=== PATIENT | male | born 1990 | race Caucasian/White ===

== ENCOUNTER → 2020-01-04 | Outpatient (CLI) | payer OTHER | LOC: LAB FS 08:24 | PROVIDERS: ATTEND Urology | DX: E29.1 Testicular hypofunction (principal) | CPT/HCPCS: 36415; 82040; 84270; 84402; 84403 ==

== ENCOUNTER 2021-02-08 23:55 | Emergency (ER) | payer OTHER ==
[~2021-02-08] VITALS: Ht 190.5 cm; Wt 78.9 kg
--- OUTSIDE RECORDS SUMMARY | 2021-02-09 00:01 | XMS REPORT | Encounter Summary ---
Author Author Department [facility] LUCINA williamson Organization Department [facility] Address Unknown Phone Unavailable Care Team Providers Care Registered Nursing Professor Name Role Phone RADHA SHYANNE PCP Unavailable Insurance Providers: All historical and current No Data Provided for This Section Selected Encounter This section includes the information on record at [place] for the Encounter. Date/Time Encounter Type Encounter Description Reason Provider Source Feb 04, 2021 01:18 PM Outpatient Encounter ADMIN PAT ACTIVTIES (MASNO NCT) IHE Encounter Template Text not used by ID Assessments - Encounter Diagnoses No Data Provided for This Section Plan of Treatment: Future Appointments (+ 6 months) and Future Tests (+/- 45 day s) The Plan of Treatment section includes future care activities for the patient fr om all ID treatment facilities. This section includes future appointments and fu ture orders which are active, pending or scheduled. Future Appointments This section includes appointments that were scheduled t o occur 6 months from the date of the Encounter, up to a maximum of 20 appointme nts. The data comes from all ID treatment facilities. Appointment Date/Time Appointment Type Appointment Facili ty Name Feb 26, 2021 09:00 AM AMBULATORY - MEDICINE INIC Mar 19, 2021 08:00 AM AMBULATORY - MEDICINE IN Active, Pending, and Scheduled Orders This section includes a listing of several types of activ e, pending, and scheduled orders, including clinic medications orders, diagnosti c test orders, procedure orders and consult orders; where the start date of th e order is 45 days before the date of the Encounter or 45 days after the date o f the Encounter. The data comes from all ID treatment facilities. Test Date/Time Test Type Test Details Facility Name Mar 05, 2021 12:00 AM Laboratory - Chemistry Order LIPID PROFILE(HDL,TRIG,CHOL,LDL) GREEN TOP TUBE PLASMA [facility] Mar 05, 2021 12:00 AM Laboratory - Chemistry Order COMPREHEN SIVE METABOLIC PANEL GREEN TOP TUBE PLASMA [facility] Mar 05, 2021 12:00 AM Laboratory - Chemistry Order CBC & DIF F 5 ML LAVENDER TOP BLOOD [facility] Mar 05, 2021 12:00 AM Laboratory - Chemistry Order TSH SST GEL S AKILA [facility] Mar 05, 2021 12:00 AM Laboratory - Chemistry Order PROSTATIC SPECIFIC ANTIGEN(TOTAL) SST GEL SERUM [facility] Mar 05, 2021 12:00 AM Laboratory - Chemistry Order URINALYSI S URIN,RAND URINE [facility] Surgical Procedures: All associated to the encounter No Data Provided for This Section Lab Results: +/- 30 days of the encounter No Data Provided for This Section Vital Signs: All taken on the encounter date No Data Provided for This Section Immunizations: All administered on the encounter date No Data Provided for This Section Social History: Smoking Status (Most current) and Tobacco Use (All prior to enco unter date) This section includes the most current, and the historical, smoking and tobacco- related health factors from the ID facility where the Encounter took place. Current Smoking Status This section includes the most current smoking, or tobacco -related health factor, from the ID facility where the Encounter took place. Date/Time Current Smoking Status Comment Facility Feb 15, 2018 08:56 AM VA-TOBACCO USER SOME DAYS [facility] [place] [facility] Tobacco Use History This section includes a history of the smoking, or tobacco -related health factors, that were collected on or before the date of the Encoun ter. The data comes from the ID facility where the Encounter took place. 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 Date/Time Encounter Note(s) Provider Source Feb 04, 2021 01:19 PM PHARMACY NOTE: LOCAL TITLE: -PHARMACY REFILL STANDARD TITLE: PHARMACY NOTE DATE OF NOTE: FEB 04, 2021@13:19 ENTRY DATE: FEB 04, 2021@13:19:14 AUTHOR: BEN VILLAFUERTE COSIGNER: URGENCY: STATUS: COMPLETED Telephone renewal request was received for: Active and Recently Outpatient Medications (including Supplies): OXYBUTYNIN CHLORIDE 10MG SA TAB Qty: 90 Issu:01-30-20 for 90 days Sig: TAKE ONE TABLET BY Refills: 0 Last:10-24-20 MOUTH ONCE A DAY FOR BLADDER. SWALLOW Expr:01-30-21 WHOLE, DO NOT CRUSH OR CHEW. Future Appointments: FEB 26, 2021@09:00 Clinic: [facility] N/C MAR 19, 2021@08:00 Clinic: [facility] 1 PCP Future PRICILLA Reminders: Renewal request will be forwarded to SHYANNE GARCIA for consideration. If approved, please renew prescription. If you do not wish to renew this prescription please document denial as an addendum to this note. If ordered, this medication should be processed for . /zulema/ BEN VILLAFUERTE LPN Signed: 02/04/2021 13:20 Receipt Acknowledged By: 02/04/2021 13:47 /zulema/ BEN DORSEY [facility] [place] [facility]
--- OUTSIDE RECORDS SUMMARY | 2021-02-09 00:01 | XMS REPORT | Encounter Summary ---
Author Author Department [facility] LUCINA williamson Organization Department [facility] Address Unknown Phone Unavailable Care Team Providers Care Dip Filler Name Role Phone SHYANNE GARCIA PCP Unavailable Insurance Providers: All historical and current No Data Provided for This Section Selected Encounter This section includes the information on record at [place] for the Encounter. Date/Time Encounter Type Encounter Description Reason Provider Source Apr 29, 2020 11:58 AM Outpatient Encounter ADMIN PAT ACTIVTIES (MASNO NCT) IHE Encounter Template Text not used by [place] Assessments - Encounter Diagnoses No Data Provided for This Section Plan of Treatment: Future Appointments (+ 6 months) and Future Tests (+/- 45 day s) The Plan of Treatment section includes future care activities for the patient fr om all [place] treatment facilities. This section includes future appointments and fu ture orders which are active, pending or scheduled. Future Appointments This section includes appointments that were scheduled t o occur 6 months from the date of the Encounter, up to a maximum of 20 appointme nts. The data comes from all [place] treatment facilities. Appointment Date/Time Appointment Type Appointment Facili ty Name Jun 20, 2020 01:00 PM AMBULATORY - NONE [facility] July 16, 2020 01:00 PM AMBULATORY - NONE [facility] July 17, 2020 01:00 PM AM[facility]ATORY - [facility] [place] [facility] July 18, 2020 01:30 PM [facility] July 18, 2020 01:31 PM [facility] Aug 08, 2020 02:00 PM AMBULATORY - NONE [facility] Sep 09, 2020 03:00 PM AMBULATORY - NONE [facility] Surgical Procedures: All associated to the encounter [...] Use (All prior to enco unter date) No Data Provided for This Section Advance Directives: All historical and current No Data Provided for This Section Radiology Reports: +/- 30 days of the encounter No Data Provided for This Section Pathology Reports: +/- 30 days of the encounter No Data Provided for This Section Encounter Notes: All associated encounter notes This section contains the clinical notes associated to the Encounter. Date/Time Encounter Note(s) Provider Source Apr 29, 2020 11:58 AM NONVA CONSULT: LOCAL TITLE: COMMUNITY CARE CONSULT RESULT NOTE EK STANDARD TITLE: NONVA CONSULT DATE OF NOTE: APR 29, 2020@11:58 ENTRY DATE: APR 29, 2020@11:58:36 AUTHOR: ROCIO KOHLI EXP COSIGNER: URGENCY: STATUS: COMPLETED Topic/Procedure: LABS AND PROGRESS NOTES Institution/Place: [facility] M.D.,F[facility]C.S[facility] Date of Service: 01/03/2020 To refer to the attached scanned document, on the Tools Bar select the Tools, then select Imaging (log in) and then, if needed, select View and display list. The following Non VA Care consult has been completed. See scanned document for report. NON VA Care Consult Results /es/ ROCIO KOHLI Signed: 04/29/2020 12:00 ROCIO KOHLI [facility] JAYME Guzman
--- OUTSIDE RECORDS SUMMARY | 2021-02-09 00:01 | XMS REPORT | Encounter Summary ---
Author Author Department [facility] LUCINA williamson Organization Department [facility] Address Unknown Phone Unavailable Care Team Providers Care Public Records Officer Name Role Phone SHYANNE GARCIA PCP Unavailable Insurance Providers: All historical and current No Data Provided for This Section Selected Encounter This section includes the information on record at [place] for the Encounter. Date/Time Encounter Type Encounter Description Reason Provider Source July 16, 2020 01:45 PM Outpatient Encounter ADMIN PAT ACTIVTIES (MASNO NCT) IHE Encounter Template Text not used by [place] Assessments - Encounter Diagnoses No Data Provided for This Section Plan of Treatment: Future Appointments (+ 6 months) and Future Tests (+/- 45 day s) The Plan of Treatment section includes future care activities for the patient fr om all [place] treatment facilities. This section includes future appointments and fu ture orders which are active, pending or scheduled. Future Appointments This section includes appointments that were scheduled t o occur 6 months from the date of the Encounter, up to a maximum of 20 appointme nts. The data comes from all [place] treatment facilities. Appointment Date/Time Appointment Type Appointment Facili ty Name July 17, 2020 01:00 PM AMBULATORY - PSYCHIATRY [facility] [place] [facility] July 18, 2020 01:30 PM AMBULATORY - [facility]RY [facility] July 18, 2020 01:31 PM [facility] Aug 08, 2020 02:00 PM AMBULATORY - NONE [facility] Sep 09, 2020 03:00 PM AMBULATORY - NONE [facility] Surgical Procedures: All associated to the [...] and tobacco- related health factors from the [place] facility where the Encounter took place. Current Smoking Status This section includes the most current smoking, or tobacco -related health factor, from the [place] facility where the Encounter took place. Date/Time Current Smoking Status Comment Facility Feb 15, 2018 08:56 AM VA-TOBACCO USER SOME DAYS [facility] [place] [facility] Tobacco Use History This section includes a history of the smoking, or tobacco -related health factors, that were collected on or before the date of the Encoun ter. The data comes from the [place] facility where the Encounter took place. 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 Date/Time Encounter Note(s) Provider Source July 16, 2020 01:45 PM NO SHOW NOTE: LOCAL TITLE: EK-NO SHOW STANDARD TITLE: NO SHOW NOTE DATE OF NOTE: JULY 16, 2020@13:45 ENTRY DATE: JULY 16, 2020@13:47:41 AUTHOR: AMADEO ESQUEDA EXP COSIGNER: URGENCY: STATUS: COMPLETED failed to show. Attempt to get him by phone unsucessful. I will ask my MSA to no show him and send a fail to show letter. /zulema/ AMADEO ESQUEDA NEW PATIENT ESC[facility] Signed: 07/16/2020 13:48 Receipt Acknowledged By: * AWAITING SIGNATURE * REFF,JERRY ESQUEDA,AMADEO Parks [facility]
--- OUTSIDE RECORDS SUMMARY | 2021-02-09 00:01 | XMS REPORT | Encounter Summary ---
Author Author Department [facility] LUCINA williamson Organization Department [facility] Address Unknown Phone Unavailable Care Team Providers Care Director Of Managed Care Name Role Phone SHYANNE GARCIA PCP Unavailable Insurance Providers: All historical and current No Data Provided for This Section Selected Encounter This section includes the information on record at [place] for the Encounter. Date/Time Encounter Type Encounter Description Reason Provider Source Mar 06, 2020 11:34 AM Outpatient Encounter ADMIN PAT ACTIVTIES (MASNO NCT) IHE Encounter Template Text not used by [place] Assessments - Encounter Diagnoses No Data Provided for This Section Plan of Treatment: Future Appointments (+ 6 months) and Future Tests (+/- 45 day s) The Plan of Treatment section includes future care activities for the patient fr om all [place] treatment facilities. This section includes future appointments and fu ture orders which are active, pending or scheduled. Future Appointments This section includes appointments that were scheduled t o occur 6 months from the date of the Encounter, up to a maximum of 20 appointme nts. The data comes from all [place] treatment facilities. Appointment Date/Time Appointment Type Appointment Facili ty Name Mar 27, 2020 07:30 AM AMBULATORY - MEDICINE [facility] Jun 20, 2020 01:00 PM [facility] NONE [facility] July 16, 2020 01:00 PM AMBULATORY - NONE [facility] July 17, 2020 01:00 PM AMBULATORY - [facility]IATRY [facility] [place] [facility] July 18, 2020 01:30 PM AMBULATORY - PS[facility]IATRY [facility] July 18, 2020 01:31 PM AMBUL[facility] Aug 08, 2020 02:00 PM AMBULATORY - NONE [facility] Surgical Procedures: All associated to the encounter No Data Provided for This Section Lab Results: +/- 30 days of the encounter This section includes the Chemistry and Hematology Lab R esults on record with [place] for the patient. Radiology Reports and Pathology Report s are provided separately, in subsequent sections. Lab Results This section contains the Chemistry/Hematology Results zenobia t were resulted 30 days before or 30 days after the date of the Encounter. Date/Time Source Result Type Result - Unit Interpretation Reference Range Comment Mar 06, 2020 11:35 AM [facility] LIPID PROFILE(HDL,TRI G,CHOL,LDL) Specimen Type: PLASMA No comment entered. Ordering Provider: SHYANNE GARCIA Report Released Date/Time: May 22, 2019 07:32 AM Reporting Lab: [facility] [address] [facility] [id number] Performing Lab: [facility] [place] [facility] [address] [facility] [address] CHOLESTEROL 138 mg/dL 0-200 TRIGS 66 mg/dL 0-150 HDL-CHOLESTEROL 45 mg/dL > 40 LDL (CALC) 80 mg/dL 0-99 Mar 06, 2020 11:35 AM [facility] CBC & DIFF Speci men Type: BLOOD No comment entered. Ordering Provider: SHYANNE GARCIA Report Released Date/Time: May 22, 2019 07:32 AM Reporting Lab: [facility] [place] [facility] [address] [facility] [address] Performing Lab: [facility] [address] [facility] [address] WBC 7.78 K/cmm 3.60-11.20 RBC 5.73 M/ul H 4.1-5.7 HGB 17.3 g/dl H 13.1-16.8 HCT 49.6 % H 38.2-48.4 MCV 86.6 fl 80.1-98.5 MCH 30.2 pg 27.0-34.0 MCHC 34.9 g/dl 33.0-36.0 PLATELET COUNT 291 K/cmm 150-400 MPV 10.3 fl 7.5-11.2 RDW 12.8 % 11.8-15.1 LYMPHOCYTES, AUTO% 29.6 % NEUTROPHILS, AUTO % 60.1 % MONOCYTES, AUTO% 8.5 % MONOCYTES, ABSOLUTE 0.66 K/cmm 0.19-0.80 NEUTROPHILS, ABSOLUTE 4.68 K/cmm 2.10-8. 00 EOSINOPHILS, ABSOLUTE 0.07 K/cmm 0.00-0. 60 BASOPHILS, ABSOLUTE 0.05 K/cmm 0.00-0.20 EOSINOPHILS, AUTO% 0.9 % BASOPHILS, AUTO% 0.6 % LYMPHOCYTES, ABSOLUTE 2.30 K/cmm 0.77-4. 50 IMMATURE GRANS, ABSOLUTE 0.02 K/cmm 0.00 -0.05 IMMATURE GRANS, AUTO % 0.3 % Mar 06, 2020 11:35 AM [facility] COMPREHENSIVE METABOL IC PANEL Specimen Type: PLASMA No comment entered. Ordering Provider: SHYANNE GARCIA Report Released Date/Time: May 22, 2019 07:32 AM Reporting Lab: [facility] [address] [facility] [address] Performing Lab: [facility] [address] [address] *CREATININE 0.89 mg/dL 0.70-1.30 UREA NITROGEN mg/dL 13 mg/dL 9-25 GLUCOSE 89 mg/dL 72-99 SODIUM 138 mEq/L 136-145 POTASSIUM 4.0 mEq/L 3.5-5.0 CALCIUM (mg/dL) 9.1 mg/dL 8.4-10.4 PROTEIN,TOTAL 7.6 g/dL 6.0-8.6 ALBUMIN 4.7 g/dL 3.4-5.0 TOTAL BILIRUBIN 0.5 mg/dL 0.2-1.2 ASPARTATE TRANSAMINASE 14 U/L 5-34 ALANINE AMINOTRANSFERASE 11 U/L 8-40 CHLORIDE 104 mEq/L 98-107 CO2 24 mEq/L 22-31 ALKALINE PHOSPHATASE 66 U/L 40-150 EGFR 99.1 Mar 06, 2020 11:35 AM [facility] TSH Speci men Type: SERUM No comment entered. Ordering Provider: SHYANNE GARCIA Report Released Date/Time: May 22, 2019 07:32 AM Reporting Lab: [facility] [address] [facility] [address] Performing Lab: [facility] [address] [facility] [address] TSH 1.499 uIU/mL 0.47-5.00 Mar 06, 2020 11:35 AM [facility] PROSTATIC SPECIFIC AN TIGEN(TOTAL) Specimen Type: SERUM No comment entered. Ordering Provider: SHYANNE GARCIA Report Released Date/Time: May 22, 2019 07:32 AM Reporting Lab: [facility] [address] [facility] [address] Performing Lab: [facility] [address] [facility] [address] PROSTATIC SPECIFIC ANTIGEN(TOTAL) 0.26 ng/mL 0.00-4.00 Mar 06, 2020 11:35 AM [facility] URINALYSIS Speci men Type: URINE No comment entered. Ordering Provider: SHYANNE GARCIA Report Released Date/Time: May 22, 2019 07:32 AM Reporting Lab: [facility] [address] [facility] [address] Performing Lab: [facility] [address] [facility] [address] URINE COLOR Yellow SPECIFIC GRAVITY 1.018 1.005-1.030 UROBILINOGEN Negative mg/dL 0.1-1.0 URINE BILIRUBIN Negative Negative URINE KETONES Negative mg/dl Negative URINE GLUCOSE Negative mg/dL Negative URINE PROTEIN Negative mg/dl Negative-Tr maximiliano URINE PH 6.0 5-8 APPEARANCE,URINE Clear Clear URINE BLOOD Negative Negative URINE NITRITE Negative Negative LEUKOCYTE ESTERASE Negative Negative Vital Signs: All taken on the encounter date No Data Provided for This Section Immunizations: All administered on the encounter date No Data Provided for This Section Social History: Smoking Status (Most current) and Tobacco Use (All prior to enco unter date) This section includes the most current, and the historical, smoking and tobacco- related health factors from the [place] facility where the Encounter took place. Current Smoking Status This section includes the most current smoking, or tobacco -related health factor, from the [place] facility where the Encounter took place. Date/Time Current Smoking Status Comment Facility Feb 15, 2018 08:56 AM VA-TOBACCO USER SOME DAYS [facility] Tobacco Use History This section includes a history of the smoking, or tobacco -related health factors, that were collected on or before the date of the Encoun ter. The data comes from the [place] facility where the Encounter took place. 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 Date/Time Encounter Note(s) Provider Source Mar 06, 2020 11:34 AM ADMINISTRATIVE NOTE: LOCAL TITLE: -ADMINISTRATIVE COVID-19 STANDARD TITLE: ADMINISTRATIVE NOTE DATE OF NOTE: MAR 06, 2020@11:34 ENTRY DATE: MAR 06, 2020@11:34:31 AUTHOR: ABUNDIO TAY EXP COSIGNER: URGENCY: STATUS: COMPLETED Coronavirus Disease 2019 (COVID-19) Screen The patient reports no COVID-19 diagnosis. The patient reports not waiting for the results of a COVID-19 lab test. The patient reports no fever. The patient reports no new or worsening cough or shortness of breath. The patient reports no cold or flu-like symptoms. The patient reports no new onset of diarrhea, nausea or vomiting. The patient reports no new onset of headache, loss of taste or loss of smell. The patient reports no exposure to someone with COVID-19 within the past 2 weeks. Result: Screen is negative. /zulema/ AUBNDIO Sommers [employer] Signed: 03/06/2020 11:34 ABUNDIO TAY [facility] [place] [facility]
--- OUTSIDE RECORDS SUMMARY | 2021-02-09 00:01 | XMS REPORT | Encounter Summary ---
Author Author Department [facility] LUCINA williamson Organization Department [facility] Address Unknown Phone Unavailable Care Team Providers Care Grease Monkey Name Role Phone SHYANNE GARCIA PCP Unavailable Insurance Providers: All historical and current No Data Provided for This Section Selected Encounter This section includes the information on record at [place] for the Encounter. Date/Time Encounter Type Encounter Description Reason Provider Source June 27, 2020 07:26 AM Outpatient Encounter ADMIN PAT ACTIVTIES (MASNO NCT) IHE Encounter Template Text not used by [place] Assessments - Encounter Diagnoses No Data Provided for This Section Plan of Treatment: Future Appointments (+ 6 months) and Future Tests (+/- 45 day s) The Plan of Treatment section includes future care activities for the patient fr om all [place] treatment facilities. This section includes future appointments and fu ture orders which are active, pending or scheduled. Future Appointments This section includes appointments that were scheduled t o occur 6 months from the date of the Encounter, up to a maximum of 20 appointme nts. The data comes from all [place] treatment facilities. Appointment Date/Time Appointment Type Appointment Facili ty Name July 16, 2020 01:00 PM AMBULATORY - NONE [facility] July 17, 2020 01:00 PM AMBULATORY - PSYCHIATRY [facility] July 18, 2020 01:30 PM AMBULATORY - [facility]RY [facility] July 18, 2020 01:31 PM AM[facility] Aug 08, 2020 02:00 PM AMBULATORY - NONE [facility] Sep 09, 2020 03:00 PM AMBULATORY - NONE [facility], VISN 15 Surgical Procedures: All associated to [...] and tobacco- related health factors from the [place] facility where the Encounter took place. Current Smoking Status This section includes the most current smoking, or tobacco -related health factor, from the [place] facility where the Encounter took place. Date/Time Current Smoking Status Comment Facility Feb 15, 2018 08:56 AM VA-TOBACCO USER SOME DAYS [facility] Tobacco Use History This section includes a history of the smoking, or tobacco -related health factors, that were collected on or before the date of the Encoun ter. The data comes from the [place] facility where the Encounter took place. 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 Feb 15, 2018 08:56 AM VA-TOBACCO USE MED NO [facility] Feb 15, 2018 08:56 AM VA-TOBACCO USER SOME DAYS [facility] Advance Directives: All historical [...] the Encounter. Date/Time Encounter Note(s) Provider Source June 27, 2020 07:26 AM PACT NOTE: LOCAL TITLE: EK-PACT WALK-IN STANDARD TITLE: PACT NOTE DATE OF NOTE: JUNE 27, 2020@07:26 ENTRY DATE: JUNE 27, 2020@07:27:11 AUTHOR: RAYMOND WESTON COSIGNER: URGENCY: STATUS: COMPLETED EK-PACT WALK-IN Has ADDENDA WHAT BRINGS YOU IN TO THE CLINIC TODAY? Arrived at clinic at 0700. Complaining of sore on back of neck. HOW LONG HAS THIS BEEN PROBLEM BEEN GOING ON? Reports it has been there for several years but in the last week it really started to hurt- it looked pus filled so popped it and reports it had pus/blood in it. WHAT HAVE YOU TRIED THAT MAKES THIS PROBLEM BETTER? I opened up the spot by squeezing it. I applied triple antibiotic and covered it with a band aid. WHAT HAVE YOU TRIED THAT MAKES THIS PROBLEM WORSE? N/A- I am not sure what made it worse. It just started to get bigger and more painful. 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 No signs of distress. Afebrile on check in. DISPOSITION: Verbal discussion with provider. Orders obtained and entered for: AMOXICILLIN 875/CLAV K 125MG TAB TAKE ONE TABLET BY MOUTH TWO TIMES A DAY FOR INFECTION.TAKE UNTIL GONE UNLESS OTHERWISE DIRECTED Quantity: 20 Refills: 0 MUPIROCIN OINT,TOP 2% APPLY LIGHTLY TO AFFECTED AREA THREE TIMES A DAY NEEDED FOR INFECTION. FOR EXTERNAL USE ONLY Quantity: 22 Refills: 0 * Educated on the importance of taking Augmentin with food due to risk of nausea and vomitting. Educated to watch for signs and symptoms of worsening infection: incluidng fever, swelling, warmth, redness. Educated to complete entire course of antiobitic therapy even when sore starts to look better. Power v/u He will call with questions or concerns. /es/ RAYMOND WESTON RN,BSN Signed: 06/27/2020 07:57 Receipt Acknowledged By: 06/27/2020 08:22 /es/ SHYANNE BARBAP 06/27/2020 ADDENDUM STATUS: COMPLETED Note mid posterior neck w/ 1+cm open lesion, w/o active drainage. Mild induration surrounding and no surrounding erythema. Vet describes cyst structure present x years that recently enlarged and then opened and drained. plan: 1. Instrx on care of lesion: * avoid collars that rub the site. Vet has to wear collared shirt 5 days/week for his job. He is instructed to change out of this after work, wear t-shirt * cleanse w/ soapy water and rinse and dry well. Leave to air dry when possible. Can keep covered during work hours w/ bandaid. Avoid hydrogen peroxide and rubbing alcohol for cleaning as they are caustic to skin * avoid picking at site * augmentin w/ food bid x 10 days * apply mupirocin oint tid * notify cboc if sxs persist despite measures /es/ SHYANNE ROBISON Signed: 06/27/2020 08:28 Receipt Acknowledged By: * AWAITING SIGNATURE * RAYMOND WESTON [facility]
--- OUTSIDE RECORDS SUMMARY | 2021-02-09 00:01 | XMS REPORT | Encounter Summary ---
Author Author Department [facility] LUCINA williamson Organization Department [facility] Address Unknown Phone Unavailable Care Team Providers Care Telephone Messenger Name Role Phone MELVIN GARCIAA PCP Unavailable Insurance Providers: All historical and current No Data Provided for This Section Selected Encounter This section includes the information on record at [place] for the Encounter. Date/Time Encounter Type Encounter Description Reason Provider Source Jul 29, 2020 09:00 AM Outpatient Encounter ADMIN PAT ACTIVTIES (MASNO NCT) IHE Encounter Template Text not used by [place] Assessments - Encounter Diagnoses No Data Provided for This Section Plan of Treatment: Future Appointments (+ 6 months) and Future Tests (+/- 45 day s) The Plan of Treatment section includes future care activities for the patient fr om all [place] treatment facilities. This section includes future appointments and fu ture orders which are active, pending or scheduled. Future Appointments This section includes appointments that were scheduled t o occur 6 months from the date of the Encounter, up to a maximum of 20 appointme nts. The data comes from all [place] treatment facilities. Appointment Date/Time Appointment Type Appointment Facili ty Name Aug 08, 2020 02:00 PM AMBULATORY - NONE [facility] Sep 09, 2020 03:00 PM AMBULATORY - NONE [facility] [place] [facility] 15 Surgical Procedures: All associated to [...] and tobacco- related health factors from the [place] facility where the Encounter took place. Current Smoking Status This section includes the most current smoking, or tobacco -related health factor, from the [place] facility where the Encounter took place. Date/Time Current Smoking Status Comment Facility Feb 15, 2018 08:56 AM VA-TOBACCO USER SOME DAYS [facility] [place] [facility] Tobacco Use History This section includes a history of the smoking, or tobacco -related health factors, that were collected on or before the date of the Encoun ter. The data comes from the [place] facility where the Encounter took place. Date/Time Smoking Status/Tobacco Use Comment [facility] it Feb 15, 2018 08:56 AM VA-TOBACCO USE 1 TO < 5 YEARS [facility] [place] [facility] Feb 15, 2018 08:56 AM VA-TOBACCO USE ADVICE 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 Feb 15, 2018 08:56 AM VA-TOBACCO USE MED NO [facility] Feb 15, 2018 08:56 AM VA-TOBACCO USER SOME DAYS [facility] Advance Directives: All [...] the Encounter. Date/Time Encounter Note(s) Provider Source Jul 29, 2020 09:00 AM SOCIAL WORK NOTE: LOCAL TITLE: EK-SW NOTE STANDARD TITLE: SOCIAL WORK NOTE DATE OF NOTE: JUL 29, 2020@09:00 ENTRY DATE: JUL 29, 2020@09:06:25 AUTHOR: AMADEO ESQUEDA EXP COSIGNER: URGENCY: STATUS: COMPLETED contacted to discuss scheduling. He accepted an appointment for 1400 on August 08, 2020. I will ask my MSA to schedule him for that date and time. /zulema/ AMADEO ESQUEDA PRESS OPERATOR HEAVY DUTY Signed: 07/29/2020 09:07 Receipt Acknowledged By: * AWAITING SIGNATURE * LEON DA SILVA * AWAITING SIGNATURE * FRANTZF,AMADEO MAURO [facility] [place] [facility]
[2021-02-09 00:02] VITALS: BP 149/98
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
--- OUTSIDE RECORDS SUMMARY | 2021-02-09 00:02 | XMS REPORT | Encounter Summary ---
Author Author Department [facility] Address Unknown Phone Unavailable Care Team Providers Care Agriculture Manager Name Role Phone RADHA SHYANNE PCP Unavailable Insurance Providers: All historical and current No Data Provided for This Section Selected Encounter This section includes the information on record at [place] for the Encounter. Date/Time Encounter Type Encounter Description Reason Provider Source Oct 17, 2020 10:42 AM Outpatient Encounter OPTOMETRY IHE Encounter Template Text not used by [place] Assessments - Encounter Diagnoses No Data Provided for This Section Plan of Treatment: Future Appointments (+ 6 months) and Future Tests (+/- 45 day s) The Plan of Treatment section includes future care activities for the patient fr om all [place] treatment facilities. This section includes future appointments and fu ture orders which are active, pending or scheduled. Future Appointments This section includes appointments that were scheduled t o occur 6 months from the date of the Encounter, up to a maximum of 20 appointme nts. The data comes from all [place] treatment facilities. Appointment Date/Time Appointment Type Appointment Facili ty Name Feb 26, 2021 09:00 AM AM[facility]ORY - MEDICINE [facility] Mar 19, 2021 08:00 AM AMBULATORY - MEDICINE [facility] Surgical Procedures: All associated to the encounter [...] the Encounter. Date/Time Encounter Note(s) Provider Source Oct 17, 2020 10:42 AM ADMINISTRATIVE NOTE: LOCAL TITLE: EK-EYE ADMINISTRATIVE STANDARD TITLE: ADMINISTRATIVE NOTE DATE OF NOTE: OCT 17, 2020@10:42 ENTRY DATE: OCT 17, 2020@10:42:41 AUTHOR: SIMON KNUTSON EXP COSIGNER: URGENCY: STATUS: COMPLETED Reviewed consult report from: Dr. Scott Stafford Sr. OD Date of examination: September 17, 2020 [place] Sent Out for Routine Eye Exam: Other: The 's Complaint was Refraction if Routine Exam Acuity if Other Right: -[id number] 20/20 Left: -0.7520/ Impression: 1. refractive error 2. pinguecula bilateral 3. 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 advised annual eye exams F/U needed: no further action requested See Scanned Document for details /zulema/ SIMON KNUTSON STAFF DRAWING IN HAND Signed: 10/17/2020 10:52 SIMON KNUTSON [facility]
--- OUTSIDE RECORDS SUMMARY | 2021-02-09 00:02 | XMS REPORT ---
Author Author Department [facility] LUCINA williamson Organization Department [facility] Address Unknown Phone Unavailable Care Team Providers Care Crystal Evaluator Name Role Phone RADHA SHYANNE PCP Unavailable Insurance Providers: All historical and current No Data Provided for This Section Selected Encounter This section includes the information on record at [place] for the Encounter. Date/Time Encounter Type Encounter Description Reason Provider Source Sep 09, 2020 08:00 AM Outpatient Encounter ADMIN PAT ACTIVTIES (MASNO [...] 26, 2021 09:00 AM AMBULATORY - MEDICINE [facility] Surgical Procedures: All associated to the encounter [...] and tobacco- related health factors from the [place] facility where the Encounter took place. Current Smoking Status This section includes the most current smoking, or tobacco -related health factor, from the [place] facility where the Encounter took place. Date/Time Current Smoking Status Comment Facility Feb 15, 2018 08:56 AM VA-TOBACCO USER SOME DAYS [facility] [facility] Tobacco Use History This section includes a history of the smoking, or tobacco -related health factors, that were collected on or before the date of the Encoun ter. The data comes from the [place] facility where the Encounter took place. Date/Time Smoking Status/Tobacco Use Comment [facility] it Feb 15, 2018 08:56 AM VA-TOBACCO USE 1 TO < 5 YEARS [facility] [place] [facility] Feb 15, 2018 08:56 AM VA-TOBACCO USE ADVICE [facility] Feb 15, 2018 08:56 AM VA-TOBACCO USE WAFER SUBSTRATE TESTER NO [facility] [place] [facility] Feb 15, 2018 08:56 AM VA-TOBACCO USE MED NO [facility] Feb 15, 2018 08:56 AM VA-TOBACCO USER SOME DAYS [facility] [place] Advance Directives: All historical and current No Data Provided for This Section Radiology Reports: +/- 30 days of the encounter No Data Provided for This Section Pathology Reports: +/- 30 days of the encounter No Data Provided for This Section Encounter Notes: All associated encounter notes This section contains the clinical notes associated to the Encounter. Date/Time Encounter Note(s) Provider Source Sep 09, 2020 08:00 AM NONVA CONSULT: LOCAL TITLE: COMMUNITY CARE CONSULT RESULT NOTE EK STANDARD TITLE: NONVA CONSULT DATE OF NOTE: SEP 09, 2020@08:00 ENTRY DATE: OCT 17, 2020@09:19:21 AUTHOR: VENESSA DE LA GARZA EXP COSIGNER: URGENCY: STATUS: COMPLETED Topic/Procedure: EYE EXAM [facility] Date of Service: 09/09/2020 To refer to the attached scanned document, on the Tools Bar select the Tools, then select Imaging (log in) and then, if needed, select View and display list. /zulema/ VENESSA DE LA GARZA CURRICULUM ADVISORY TEACHER Signed: 10/17/2020 09:19 VENESSA DE LA GARZA [facility]
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
--- OUTSIDE RECORDS SUMMARY | 2021-02-09 00:03 | XMS REPORT ---
Author Author Department [facility] LUCINA williamson Organization Department [facility] Address Unknown Phone Unavailable Care Team Providers Care Electrophysiology Nurse Practitioner Name Role Phone SHYANNE GARCIA PCP Unavailable Insurance Providers: All historical and current No Data Provided for This Section Selected Encounter This section includes the information on record at [place] for the Encounter. Date/Time Encounter Type Encounter Description Reason Provider Source July 16, 2020 04:02 PM Outpatient Encounter ADMIN PAT ACTIVTIES (MASNO NCT) IHE Encounter Template Text not used by [place] Assessments - Encounter Diagnoses No Data Provided for This Section Plan of Treatment: Future Appointments (+ 6 months) and Future Tests (+/- 45 day s) The Plan of Treatment section includes future care activities for the patient fr om all [place] treatment facilities. This section includes future appointments and fu ture orders which are active, pending or scheduled. Future Appointments This section includes appointments that were scheduled t o occur 6 months from the date of the Encounter, up to a maximum of 20 appointme nts. The data comes from all [place] treatment facilities. Appointment Date/Time Appointment Type Appointment Facili ty Name July 17, 2020 01:00 PM [facility] July 18, 2020 01:30 PM AMBULATORY - [facility]CHIATRY [facility] July 18, 2020 01:31 PM AMBULATORY - [facility]IATRY [facility] Aug 08, 2020 02:00 PM AMBULATORY - NONE [facility] Sep 09, 2020 03:00 PM AMBULATORY - NONE [facility] T, VISN 15 Surgical Procedures: All associated [...] Encounter Note(s) Provider Source July 16, 2020 04:02 PM LETTERS: LOCAL TITLE: EK-TO UNABLE TO CONTACT PATIENT LETTER STANDARD TITLE: LETTERS DATE OF NOTE: JULY 16, 2020@16:02 ENTRY DATE: JULY 16, 2020@16:02:12 AUTHOR: JERRY MARIN EXP COSIGNER: URGENCY: STATUS: COMPLETED Department of 's [facility] [address] [place] [address] JULY 16, 2020 LUCINA BEGUM [address], [place] [address] Dear LUCINA BEGUM Please call us for an appointment. We have been trying to contact you to reschedule an appointment in [place], but we were unsuccessful in reaching you by telephone. It is important to your health that you do not have delays in your care. Please contact us to schedule your appointment within 14 days from the date of this letter. Please call toll free or ext:[phone]. This letter will 07/30/2020. Sincerely, [facility] JERRY MARIN [facility]
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
--- OUTSIDE RECORDS SUMMARY | 2021-02-09 00:03 | XMS REPORT | Encounter Summary ---
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 Date/Time Encounter Type Encounter Description Reason Provider Source July 18, 2020 01:30 PM TELEHEALTH FACILITY [facility] - IND ICD-10-CM F31.9 Bipolar disorder, unspecified with Provider Comments: Bipolar II disorder ([facility] [id number]) TERRANCE BARRIOS Kaylen Encounter Template Text not used by [place] Assessments - Encounter Diagnoses This section includes the primary and secondary diag noses documented for the Encounter. Date/Time Primary/Secondary Diagnosis Diagnosis Name Provider Source July 20, 2020 02:24 PM PRIMARY Bipolar disorder, unspecified [facility] Plan of Treatment: Future Appointments (+ 6 months) and Future Tests (+/- 45 day s) The Plan of Treatment section includes future care activities for the patient fr om all [place] treatment facilities. This section includes future appointments and fu ture orders which are active, pending or scheduled. Future Appointments This section includes appointments that were scheduled t o occur 6 months from the date of the Encounter, up to a maximum of 20 appointme nts. The data comes from all [place] treatment facilities. Appointment Date/Time Appointment Type Appointment Facili ty Name Aug 08, 2020 02:00 PM AMBULATORY - NONE [facility] Sep 09, 2020 03:00 PM AMBULATORY - NONE [facility] T, VISN 15 Surgical Procedures: All associated to the encounter This section includes all Surgical Procedures and Surgical Procedure Notes assoc iated to the Encounter. Surgical Procedures This section includes all Surgical Procedures associated to the Encounter. Surgical Procedure Date/Time Procedure Procedure Type Procedure Qualifiers Provider Source July 18, 2020 01:30 PM Telehealth Facility Fee TELEHEALTH FACILITY Dany COLLINS DENIS,TERRANCE Patino [facility] Surgical Notes There are no notes associated [...] and tobacco- related health factors from the [facility] facility where the Encounter took place. Current Smoking Status This section includes the most current smoking, or tobacco -related health factor, from the [facility] facility where the Encounter took place. Date/Time Current Smoking Status Comment Facility Mar 27, 2020 07:30 AM VA-TOBACCO USER EVERY DAY [facility] Tobacco Use History This section includes a history of the smoking, or tobacco -related health factors, that were collected on or before the date of the Encoun ter. The data comes from the [facility] facility where the Encounter took place. Date/Time Smoking Status/Tobacco Use Comment Selam rodas Mar 27, 2020 07:30 AM VA-TOBACCO USE 5 TO 15 YEARS [facility] Mar 27, 2020 07:30 AM VA-TOBACCO USE ADVICE [facility] Mar 27, 2020 07:30 AM VA-TOBACCO USE VEHICLE PAINTER NO [facility] Mar 27, 2020 07:30 AM VA-TOBACCO USE MED NO [facility] Mar 27, 2020 07:30 AM VA-TOBACCO USER EVERY DAY [facility] Feb 06, 2019 05:16 PM VA-TOBACCO DOESNT USE WI 30 MIN WAKEUP [facility] Feb 06, 2019 05:16 PM VA-TOBACCO USE > 15 LESS THAN 30 YEARS [facility] Feb 06, 2019 05:16 PM VA-TOBACCO USE ADVICE [facility] Feb 06, 2019 05:16 PM VA-TOBACCO USE VEHICLE PAINTER NO [facility] Feb 06, 2019 05:16 PM VA-TOBACCO USE MED NO [facility] Feb 06, 2019 05:16 PM VA-TOBACCO USER SOME DAYS [facility] Oct 29, 2010 07:46 AM CURRENT NON-TOBACCO USER [facility] Advance Directives: All historical and current No Data Provided for This Section Radiology Reports: +/- 30 days of the encounter No Data Provided for This Section Pathology Reports: +/- 30 days of the encounter No Data Provided for This Section Encounter Notes: All associated encounter notes No Data Provided for This Section
--- OUTSIDE RECORDS SUMMARY | 2021-02-09 00:03 | XMS REPORT | Encounter Summary ---
[facility] Address Unknown Phone Unavailable Care Team Providers Care Electric Car Operator Name Role Phone SHALINI GARCIA PCP Unavailable Insurance Providers: All historical and current No Data Provided for This Section Selected Encounter This section includes the information on record at [place] for the Encounter. Date/Time Encounter Type Encounter Description Reason Provider Source Jun 18, 2020 04:27 PM PT EDUCATION NOC INDIVID PRIMARY CARE/MEDI CINE ICD-10-CM F41.9 Anxiety disorder, unspecified with Provider Comments: Anxiety Disorder, unspecified DULCE JAY Encounter Template Text not used by [place] Assessments - Encounter Diagnoses This section includes the primary and secondary diag noses documented for the Encounter. Date/Time Primary/Secondary Diagnosis Diagnosis Name Provider Source Jun 18, 2020 05:20 PM PRIMARY Anxiety disorder, unspecified WO DULCE VIDALES V [facility] Plan of Treatment: Future Appointments (+ 6 months) and Future Tests (+/- 45 day s) The Plan of Treatment section includes future care activities for the patient fr om all [place] treatment facilities. This section includes future appointments and fu ture orders which are active, pending or scheduled. Future Appointments This section includes appointments that were scheduled t o occur 6 months from the date of the Encounter, up to a maximum of 20 appointme nts. The data comes from all [place] treatment facilities. Appointment Date/Time Appointment Type Appointment Facili ty Name Jun 20, 2020 01:00 PM [facility]ORY [facility] NONE [facility] July 16, 2020 01:00 PM AMBULATORY - NONE [facility] July 17, 2020 01:00 PM [facility] July 18, 2020 01:30 PM AMBULATORY - PSYCHIATRY [facility] July 18, 2020 01:31 PM AMBUL[facility]ORY - [facility] Aug 08, 2020 02:00 PM AMBULATORY - NONE [facility] Sep 09, 2020 03:00 PM AMBULATORY - NONE [facility] [place], VISN 15 Surgical Procedures: All associated to the encounter This section includes all Surgical Procedures and Surgical Procedure Notes assoc iated to the Encounter. Surgical Procedures This section includes all Surgical Procedures associated to the Encounter. Surgical Procedure Date/Time Procedure Procedure Type Procedure Qualifiers Provider Source Jun 18, 2020 04:27 PM Patient Education, not other hernandez classified, non-Physician Provider, Individual, per Session PT EDUCATION DULCE MEMBRENO [facility] Surgical Notes There are no notes associated [...] and tobacco- related health factors from the [place] facility where the Encounter took place. Current Smoking Status This section includes the most current smoking, or tobacco -related health factor, from the [place] facility where the Encounter took place. Date/Time Current Smoking Status Comment Facility Mar 27, 2020 07:30 AM VA-TOBACCO USER EVERY DAY [facility] Tobacco Use History This section includes a history of the smoking, or tobacco -related health factors, that were collected on or before the date of the Encoun ter. The data comes from the [place] facility where the Encounter took place. Date/Time Smoking Status/Tobacco Use Comment [facility] it Mar 27, 2020 07:30 AM VA-TOBACCO USE 5 TO 15 YEARS [facility] Mar 27, 2020 07:30 AM VA-TOBACCO USE ADVICE [facility] Mar 27, 2020 07:30 AM VA-TOBACCO USE MOLDER SHOULDER PAD NO [facility] Mar 27, 2020 07:30 AM VA-TOBACCO USE MED NO [facility] Mar 27, 2020 07:30 AM VA-TOBACCO USER EVERY DAY [facility] Feb 06, 2019 05:16 PM VA-TOBACCO DOESNT USE WI 30 MIN WAKEUP [facility] Feb 06, 2019 05:16 PM VA-TOBACCO USE > 15 LESS THAN 30 YEARS [facility] Feb 06, 2019 05:16 PM VA-TOBACCO USE ADVICE [facility] Feb 06, 2019 05:16 PM VA-TOBACCO USE MOLDER SHOULDER PAD NO [facility] Feb 06, 2019 05:16 PM VA-TOBACCO USE MED NO [facility] Feb 06, 2019 05:16 PM VA-TOBACCO USER SOME DAYS [facility] Oct 29, 2010 07:46 AM CURRENT NON-TOBACCO USER [facility] Advance Directives: All historical and current No [...] Encounter Note(s) Provider Source Jun 18, 2020 04:29 PM CARE MANAGEMENT NOTE: LOCAL TITLE: EK-PACT CARE MANAGEMENT STANDARD TITLE: CARE MANAGEMENT NOTE DATE OF NOTE: JUN 18, 2020@16:29 ENTRY DATE: JUN 18, 2020@16:29:10 AUTHOR: DULCE JAY COSIGNER: URGENCY: STATUS: COMPLETED EK-PACT CARE MANAGEMENT Has ADDENDA Patient came into clinic asking to speak to RN about some issues he is having. Patient brought to executive officer. Patient is very nervous about speaking to anyone for fear it will get back to his work place. 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 He is "minor marriage" and has 6 children. 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 Reassured Vet that everything that is in his medical chart is confidential, explained HIPPA law. Let him know that only medical staff involved in his care could share info about him. Other than that, [place] will not release any information to anyone that he has not designated in writing as being able to release it to, or by court order. Patient states his has been telling him for sometime to come see someone. She "thinks Im crazy". He states "I can go off the handle alot". He denies using any physical abuse, and denies any idealations of self harm or suicide. He states he just can't sit still, and has been told he has OCD, he has to pace, even when he is on a conference call at work. He states that everyone tells him he cant stop moving. He is fidgiting in the chair as he speaks. He states he has been using marijuana to help calm his nerves which helps, but then he gets a "don't give a shit attitude". He states he knows it is illegal, but it is the only thing that calms him down. He states he knows "how to get around a random urine test" should he be asked to do one at work. He denies any other illicit drug use, he only takes prescribed meds Sumtriptan succinate for Migraines, usually once a week, he states stress brings on his migrains and Oxybutynin for his overactive bladder, he denies any OTC meds. He admits to drinking energy drinks "maybe every other day, and a 32 oz pop daily. Discussed decreasing caffiene intake and stopping any energy drinks. Patient states "that will be hard" Discussed not being on social media, not watching current news as that may trigger anger. He reports has not been on social media in 8 years because it causes problems with his marriage and he does not watch the news. Patient states he probably has some PTSD, but he faked the exit test in the so that it would not be on his record, so he can legally have guns. He denies owning or having any guns in his possession. His thinks he is "bipolar". Let patient know that we have Psychiatric services with Dr. Perez that is telemed meetings on fridays and we also have a social insurance specialist here that has spealty in mental issues. Patient OK with this proposal lead writer reporting the above to his PCP. Spoke with RICKI Burgess, she agrees patient needs appointments with Mental Health. Was able to get patient in to see ROB Higginbotham. Per Shalini she will put in a consult for Dr. Perez. Patient given the Crisis Hot Line number on a card and advised he can use it 24-7 should he need someone to talk to, explained he did not have to be suicidal to call the number. Patient verbalixed his understanding. Was able to get patient in to speak to Amadeo Berry this afternoon for additional help during this episode. /es/ DULCE JAY RN Signed: 06/18/2020 17:20 Receipt Acknowledged By: 06/18/2020 19:50 /zulema/ SHALINI ROBISON 06/18/2020 17:29 /zulema/ AMADEO SANNOO CONFIGURATION ENGINEER 06/19/2020 ADDENDUM STATUS: COMPLETED Upon presentation to [facility] yesterday afternoon w/ walk-in complaints, vet also stated he needed an eye exam /zulema/ SHALINI ROBISON Signed: 06/19/2020 13:01 DULCE JAY [facility]
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
--- OUTSIDE RECORDS SUMMARY | 2021-02-09 00:04 | XMS REPORT | Encounter Summary ---
Author Author [facility] LUCINA williamson Organization [facility] Address Unknown Phone Unavailable Care Team Providers Care Solution Manager Name Role Phone SHYANNE GARCIA PCP Unavailable Insurance Providers: All historical and current No Data Provided for This Section Selected Encounter This section includes the information on record at [place] for the Encounter. Date/Time Encounter Type Encounter Description Reason Provider Source Mar 27, 2020 07:30 AM OFFICE O/P EST MOD 30-39 MIN PRIMARY CARE/ MEDICINE ICD-10-CM G43.909 Migraine, unsp, not intractable, without status migrainosus with Provider Comments: Headache disorder ([facility] [id number]) SHYANNE GARCIA Kaylen Encounter Template Text not used by [place] Assessments - Encounter Diagnoses This section includes the primary and secondary diag noses documented for the Encounter. Date/Time Primary/Secondary Diagnosis Diagnosis Name Provider Source Mar 27, 2020 08:53 AM PRIMARY Migraine, unsp, no t intractable, without status migrainosus SHYANNE GARCIA [facility] Mar 27, 2020 08:53 AM SECONDARY Overactive bladder SHYANNE GARCIA [facility] Mar 27, 2020 08:53 AM SECONDARY Pain in left ankle and cleo nts of left foot SHYANNE GARCIA [facility] Mar 27, 2020 08:53 AM SECONDARY [facility] Plan of Treatment: Future Appointments (+ 6 months) and Future Tests (+/- 45 day s) The Plan of Treatment section includes future care activities for the patient fr om all [place] treatment facilities. This section includes future appointments and fu ture orders which are active, pending or scheduled. Future Appointments This section includes appointments that were scheduled t o occur 6 months from the date of the Encounter, up to a maximum of 20 appointme nts. The data comes from all [place] treatment facilities. Appointment Date/Time Appointment Type Appointment Facili ty Name Jun 20, 2020 01:00 PM AMBULATORY - NONE [facility] July 16, 2020 01:00 PM AMBULATORY - NONE [facility] July 17, 2020 01:00 PM AMBULATORY - PSYCHIATRY [facility] July 18, 2020 01:30 PM AMBULATORY - PSYCHIATRY [facility] July 18, 2020 01:31 PM AMBULATORY - PS[facility]CHIATRY [facility] Aug 08, 2020 02:00 PM AMBULATORY - NONE [facility] Sep 09, 2020 03:00 PM AMBULATORY - NONE [facility] 15 Surgical Procedures: All associated to the encounter No Data Provided for This Section Lab Results: +/- 30 days of the encounter This section includes the Chemistry and Hematology Lab R esults on record with [place] for the patient. Radiology Reports and Pathology Report s are provided separately, in subsequent sections. Lab Results This section contains the Chemistry/Hematology Results zenobia t were resulted 30 days before or 30 days after the date of the Encounter. Date/Time Source Result Type Result - Unit Interpretation Reference Range Comment Mar 06, 2020 11:35 AM [facility] LIPID PROFILE(HDL,TRI G,CHOL,LDL) Specimen Type: PLASMA No comment entered. Ordering Provider: SHYANNE GARCIA Report Released Date/Time: May 22, 2019 07:32 AM Reporting Lab: [facility] [address] [facility] [id number] Performing Lab: [facility] [address] [facility] [address] CHOLESTEROL 138 mg/dL 0-200 TRIGS 66 mg/dL 0-150 HDL-CHOLESTEROL 45 mg/dL > 40 LDL (CALC) 80 mg/dL 0-99 Mar 06, 2020 11:35 AM [facility] CBC & DIFF Speci men Type: BLOOD No comment entered. Ordering Provider: SHYANNE GARCIA Report Released Date/Time: May 22, 2019 07:32 AM Reporting Lab: [facility] [address] [facility] [address] Performing Lab: [facility] [address] [facility] [address] WBC 7.78 K/cmm 3.60-11.20 RBC 5.73 M/ul [...] 0.3 % Mar 06, 2020 11:35 AM [facility] COMPREHENSIVE METABOL IC PANEL Specimen Type: PLASMA No comment entered. Ordering Provider: SHYANNE GARCIA Report Released Date/Time: May 22, 2019 07:32 AM Reporting Lab: [facility] [address] [facility] [address] Performing Lab: [facility] [address] [facility] [address] *CREATININE 0.89 mg/dL 0.70-1.30 UREA NITROGEN mg/dL [...] EGFR 99.1 Mar 06, 2020 11:35 AM [facility] TSH Speci men Type: SERUM No comment entered. Ordering Provider: SHYANNE GARCIA Report Released Date/Time: May 22, 2019 07:32 AM Reporting Lab: [facility] [address] [facility] [address] Performing Lab: [facility] [address] [facility] [address] TSH 1.499 uIU/mL 0.47-5.00 Mar 06, 2020 11:35 AM [facility] PROSTATIC SPECIFIC AN TIGEN(TOTAL) Specimen Type: SERUM No comment entered. Ordering Provider: SHYANNE GARCIA Report Released Date/Time: May 22, 2019 07:32 AM Reporting Lab: [facility] [address] [facility] [address] Performing Lab: [facility] [address] [facility] [address] PROSTATIC SPECIFIC ANTIGEN(TOTAL) 0.26 ng/mL 0.00-4.00 Mar 06, 2020 11:35 AM [facility] URINALYSIS Speci men Type: URINE No comment entered. Ordering Provider: SHYANNE GARCIA Report Released Date/Time: May 22, 2019 07:32 AM Reporting Lab: [facility] [address] [facility] [address] Performing Lab: [facility] [address] [facility] [address] URINE COLOR Yellow SPECIFIC GRAVITY 1.018 1.005-1.030 UROBILINOGEN Negative mg/dL 0.1-1.0 URINE BILIRUBIN Negative Negative URINE KETONES Negative mg/dl Negative URINE GLUCOSE Negative mg/dL Negative URINE PROTEIN Negative mg/dl Negative-Tr maximiliano URINE PH 6.0 5-8 APPEARANCE,URINE Clear Clear URINE BLOOD Negative Negative URINE NITRITE Negative Negative LEUKOCYTE ESTERASE Negative Negative Vital Signs: All taken on the encounter date This section contains inpatient and outpatient Vital Signs collected on the date of the Encounter. Date/Time Temperature Pulse Blood Pressure Respiratory Rate SP02 Pa in Height Weight Body Mass Index Source Mar 27, 2020 07:52 AM 97.5 F 88 /min 118/78 mm[Hg] 16 /min 99 % 75 in 176.1 lb 22 [facility] Mar 27, 2020 07:40 AM 0 [facility] Immunizations: All administered on the encounter date No Data Provided for This Section Social History: Smoking Status (Most current) and Tobacco Use (All prior to enco unter date) This section includes the most current, and the historical, smoking and tobacco- related health factors from the [place] facility where the Encounter took place. Current Smoking Status This section includes the most current smoking, or tobacco -related health factor, from the [place] facility where the Encounter took place. Date/Time Current Smoking Status Comment Facility Mar 27, 2020 07:30 AM VA-TOBACCO USER EVERY DAY [facility] Tobacco Use History This section includes a history of the smoking, or tobacco -related health factors, that were collected on or before the date of the Encoun ter. The data comes from the [place] facility where the Encounter took place. 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 [facility] Mar 27, 2020 07:30 AM VA-TOBACCO USE MED NO [facility] Mar 27, 2020 07:30 AM VA-TOBACCO USER EVERY DAY [facility] Feb 06, 2019 05:16 PM VA-TOBACCO DOESNT USE WI 30 MIN WAKEUP [facility] Feb 06, 2019 05:16 PM VA-TOBACCO USE > 15 LESS THAN 30 YEARS [facility] Feb 06, 2019 05:16 PM VA-TOBACCO USE ADVICE [facility] Feb 06, 2019 05:16 PM 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 [facility] Feb 06, 2019 05:16 PM VA-TOBACCO USE MED NO [facility] Feb 06, 2019 05:16 PM VA-TOBACCO USER SOME DAYS [facility] Oct 29, 2010 07:46 AM CURRENT NON-TOBACCO USER [facility] Advance Directives: All historical and current No Data Provided for This Section Radiology Reports: +/- 30 days of the encounter No Data Provided for This Section Pathology Reports: +/- 30 days of the encounter No Data Provided for This Section Encounter Notes: All associated encounter notes This section contains the clinical notes associated to the Encounter. Date/Time Encounter Note(s) Provider Source Mar 27, 2020 07:37 AM NURSING OUTPATIENT NOTE: [facility] ST[facility] TITLE: NURSING OUTPATIENT NOTE DATE OF NOTE: MAR 27, 2020@07:37 ENTRY DATE: MAR 27, 2020@07:37:55 AUTHOR: DULCE JAY COSIGNER: URGENCY: STATUS: [facility] Has ADDENDA Coronavirus Disease 2019 (COVID-19) Screen The patient [...] past 2 weeks. Result: Screen is negative. COVID-19 Immunization Status There is no record of COVID-19 vaccination. PRIMARY REASON FOR VISIT TODAY: yearly check PATIENT'S GOAL/MISSION FOR THEIR HEALTH: good and healthy ALLERGIES/ADR: Patient has answered NKA VITALS: VITALS - T. 97.5 P 88, R 16, BP 118/78, Wt 176.1, Ht 75 REPRODUCTIVE HISTORY: Concerns regardng sexual/reproductive health: None MEDICATION RECONCILIATION: Copy of current medication list on file provided for patient. Instructed to compare with all medications they are currently taking, and to review /discuss discrepancies with provider. LEARNING ASSESSMENT: Patient's preferred language for discussing health care is: Hungarian Today's learning assessment regarding patient's readiness to learn. Patient reads well. Barriers to Learning: Vision barrier addressed by: Other: night time driving only wears glasses. Preferred Method of Learning: Listening Education provided as per documentation below: SCREENING FOR PAIN STATUS: Patient reported pain level as 0 (03/20/2019 10:39) on 0 to 10 scale. * Today's Pain Level: 0 Pain Scale used: Numerical Pain Scale Patient states current level of pain is: Acceptable Location of pain that most interferes with your life: Not applicable Verbal Education Provided: To patient, Pain prevention by exercise and reducing stress Understanding of education: Patient: Good Patient Support Member: Not applicable Barriers to Learning: None SCREENING FOR FALL RISK: Roland Fall Assessment History of Falling, immediate or within 3 months: 0 - No Has the patient fallen within the last 12 months? No Secondary Diagnosis: 15 - Yes, more than one diagnosis Ambulatory Aid: 0 - None, bed rest, nurse assist Intravenous Therapy: 0 - No Patient's Gait: 0 - Normal, bed rest, immobile Mental Status: 0 - Oriented to own ability Total Score: 15 Score 0-24 - No intervention indicated SCREENING FOR ABUSE/NEGLECT: Do you have any concerns about feeling safe, neglected or abused? Patient reports feeling safe; denies concern of abuse or neglect. SECURE MESSAGING: Patient was invited/encouraged to utilize Secure Messaging for medication refill requests and other non-urgent communication. DISPOSITION: to provider 0840 Alcohol Use Screen (AUDIT-C): Alcohol Screen: SCREEN FOR ALCOHOL (AUDIT-C) An alcohol screening test (AUDIT-C) was negative (score=1). 1. How often did you have a drink containing alcohol in the past year? Monthly or less 2. How many drinks containing alcohol did you have on a typical day when you were drinking in the past year? One or two drinks 3. How often did you have six or more drinks on one occasion in the past year? Never N:Homeless/Food Insecurity Scr: In the past 2 months, have you been living in stable housing that you own, rent, or stay in as part of a household? Yes - Living in stable housing. Are you worried or concerned that in the next 2 months you may NOT have stable housing that you own, rent, or stay in as part of a household? No - Not worried about housing near future The Telephone reports the following: Within the past 12 months I worried whether my food would run out before I got money to buy more. Never true Within the past 12 months the food I bought just didn't last and I didn't have money to get more. Never true N:Offer MOVE! Program: Discussed with patient the MOVE!/Weight Management Program. The following health risks of overweight/obesity were discussed: heart disease, diabetes, sleep apnea, hypertension, arthritis and certain cancers. Assessed patients readiness to begin weight management activities including the MOVE! Program. Patient offered enrollment into the MOVE!/Weight Management Program. Declined Weight Management (MOVE) Program. N:Pressure Ulcer Risk Screening: Mobility/Friction/Shear - Patient requires assistance for changing position when in bed or chair? No Activity - Patient is confined to bed or requires a wheelchair as their only or primary method of ambulation? 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 No Moisture - Patient has difficulty controlling bowel or bladder functions? No Nutrition - Patient has had significant weight loss in the past 6 months (10% or more of usual body weight)? No All responses are negative. Screening for risk is negative. /zulema/ DULCE JAY RN Signed: 03/27/2020 07:55 03/27/2020 ADDENDUM STATUS: COMPLETED Influenza Immunization: The patient declines to receive the recommended dose of seasonal influenza vaccine. /zulema/ DULCE AJY RN Signed: 03/27/2020 08:53 DULCE JAY V [facility] Mar 27, 2020 07:26 AM ADMINISTRATIVE NOTE: LOCAL TITLE: EK-ADMINISTRATIVE STANDARD TITLE: ADMINISTRATIVE NOTE DATE OF NOTE: MAR 27, 2020@07:26 ENTRY DATE: MAR 27, 2020@07:26:47 AUTHOR: SOHAN VILLA EXP COSIGNER: URGENCY: STATUS: COMPLETED PATIENT PRESENTS TO CLINIC FOR CHECK FOR PRIMARY CARE APPOINTMENT TODAY. IS TEMP CHECKED AND CLEARED TO PROCEED. IS QUESTIONED ABOUT COVID POSITIVE CONTACT WITHIN THE LAST 10 DAYS: "none" IS QUESTIONED ABOUT WHETHER HE/SHE HAS TESTED POSITIVE FOR COVID IN THE LAST 10 DAYS: "none, son has been swabbed, but was negative" 'S DEMOGRAPHICS AND INSURANCE ARE CHECKED BY THIS WORKER AND HIS/HER EMAIL ADDRESS IS VERIFIED. IS REQUESTED TO PROCEED TO THE [facility] AND SELF CHECK IN. /zulema/ SOHAN VILLA Signed: 03/27/2020 07:27 SOHAN VILLA [facility] Mar 27, 2020 07:10 AM PRIMARY CARE NURSE PRACTITFRANKIE MORRELL NOTE: LOCAL TITLE: EK-NURSE PRACTITIONER PC STANDARD TITLE: PRIMARY CARE NURSE PRACTITIONER NOTE DATE OF NOTE: MAR 27, 2020@07:10 ENTRY DATE: MAR 27, 2020@07:10:56 AUTHOR: SHYANNE GARCIA EXP COSIGNER: URGENCY: STATUS: COMPLETED EK-NURSE PRACTITIONER PC Has ADDENDA Reason for visit: annual appt, lab results CC: Doing well w/ oxybutynin HPI: Followup chronic medical conditions. * Doing well w/ oxybutynin. Has f/u w/ Dr Cruz in April. Other providers: [facility] prn, [facility] Dr Cruz PSH: left ankle, fracture, ORIF 03/03 07/01 appliances removed from left ankle myringotomy tubes ROS: Denies chest pain, shortness of breath, orthopnea, unusual fatigue. Occ headaches, prn Tylenol. Occ migraine, prn Imitrex. Denies reflux, dysphagia. Occ hemorrhoids, prn topical product. Denies change in bowels, constipation, diarrhea. Nocturia: denies.Denies frequency w/ RX thru Dr Cruz. Some swelling of left ankle since fractured in February 2010, notes discomfort w/ weather changes. Mood: "Good". 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 Hobbies: plays w/ kids, remodeling home Exercise: walks daily, up to 4 miles. Runs Diet: regular Monitor: none Tattoos: 1 Piercings: earlobes x1 bilat Eye exam: 12/31 Pneumovax: 03/20/19 Tdap: 03/16/18 Social: , 6 children. Lives with and 5 kids (1 is a step). 1 daughter lives with her mother. 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 Family Hx: Mother: living, CAD and PVD/stent. Father: age 60, hx HTN, TIA. 1 brother: healthy. 2 half sisters: healthy. Medications: Active Outpatient Medications (including Supplies): Outpatient Medications Status 1) OXYBUTYNIN CHLORIDE 10MG SA TAB ASAD E ONE TABLET BY ACTIVE (S) MOUTH ONCE A DAY FOR BLADDER. SWALLOW WHOLE, DO NOT CRUSH OR CHEW. 2) SUMATRIPTAN SUCCINATE 100MG TAB ASAD E ONE TABLET BY PENDING MOUTH NEEDED FOR MIGRAINE. TAKE AT ONSET OF HEADACHE. MAY REPEAT AFTER 2 HOURS. NOT TO EXCEED 2 TABLETS IN 24 HOURS. Non-VA Medications Status 1) Non-VA ACETAMINOPHEN 325MG TAB 650M G MOUTH NEEDED ACTIVE 2) Non-VA CRANBERRY EXTRACT CAP/TAB 1 TABLET MOUTH ONCE ACTIVE A DAY 4 Total Medications Compared newly ordered medications and medication changes to active medications and non-VA medications, and then reviewed medications with patient and/or caregiver. All discrepancies noted and reconciled. Patients, or caregivers, was provided with reconciled medications list and advised to provide to all non VA providers. Potential adverse reactions of new medications were discussed with the patient. Allergies: Patient has answered NKA PE: Vital signs: B/P: 118/78 (03/27/2020 07:52) Temp: 97.5 F [36.4 C] (03/27/2020 07:52) Pulse: 88 (03/27/2020 07:52) Resp: 16 (03/27/2020 07:52) Height: 75 in [190.5 cm] (03/27/2020 07:52) Weight: 176.1 lb [80.0 kg] (03/27/2020 07:52) Pain: 0 (03/27/2020 07:40) BMI: 22.1 General: Ambulatory. Cooperative, alert and oriented to person, place and time. General appearance: casually dressed. No apparent distress. HEENT: Glasses on occasion. BISI, gazes intact. Right TMs scarred. Left TM w/ faint scar. Pharynx clear. Neck. Supple. No adenopathy, thyromegaly, masses, bruits, JVD. Respiratory: Unlabored. CTA. Cardiac: HRR, no murmurs. Abdomen: Soft. Bowel sounds +. Denies tenderness to palpation. Extremities: No edema. No cyanosis or clubbing. Labs: 03/06/20 Results reviewed with vet and copy provided. Reminders: P:Outpt Medication Reconciliation: MEDICATION RECONCILIATION I have [...] patient and/or caregiver. Patient verbalizes understanding: yes. P:Test Results Notification: The following tests results along with appropriate management plan were discussed with patient at this clinic visit: Lab results It is documented that patient verbalized understanding of results and/or actions required? Yes Tobacco Use Screening: The patient uses tobacco every day. The patient does not use tobacco within 30 minutes of waking up. The patient has been smoking or using tobacco for five to fifteen years. Patient was advised to quit smoking and/or using tobacco. Discussion with patient included: - Quitting smoking or tobacco use is one of the most important things you can do to protect and improve your health and [place] has the resources to support you. - Set a quit date when you are ready to quit. - Get support from your family and friends. - Review any past quit attempts- What helped? What didn't? - On the day you plan to quit, get rid of all cigarettes and tobacco products from your home, car or work. - Using a combination of behavioral counseling or other support strategies and FDA-approved cessation medications is the most effective way to ensure success in quitting. Patient was offered Behavioral Counseling and other support strategies to assist with quitting. Discussion with patient included: - Behavioral counseling or other support strategies greatly increases your chances of successfully quitting smoking or tobacco use by helping you develop a quit plan and providing support and other strategies to make behavioral changes to help you quit. - [place] has a number of behavioral counseling options to help you with quitting, including: * Provide information about the facility smoking or tobacco use treatment options or clinics * [place]'s national quitline, 8-869-HTOT-VET, with counseling available Tuesday-Tuesday The patient was not interested in receiving additional information about how to use the treatment options discussed. Patient was offered FDA-approved cessation medications. Discussion with patient included: - Medications for Nicotine replacement therapy such as the patch, gum or lozenge, and other medications such as varenicline or bupropion, can play an important role in the initial weeks and months after you quit smoking or tobacco use. - Medications help with cravings and withdrawal symptoms and they greatly increase your chances of successfully quitting. The patient was not interested in a prescription for tobacco cessation medications. [facility] DIGITAL DIVIDE CAPABILITY REMINDER: Patient is interested in [facility] appointments. [facility] requirements have been communicated to the . The Telephone confirms understanding of those requirements and indicates the following [facility] needs: Patient does not have a completed [facility] Encounter/Visit within the last two years and desires to complete the [facility] set-up process. has virtual equipment WITH ACTIVE EMAIL The Provider and Telephone agree to the use of Telehealth and the Telephone confirms they have their own smart device (smart phone, tablet, laptop or computer) with a camera AND audio AND they have a current active email address: CURRENT EMAIL ADDRESS: [email or web address] has completed [facility] appointments within the last two years but would like to have a new test call. * should call the Office of [facility] Health Desk([facility]) at [phone] Option 1 for test call. * informed a [place] staff member will call to follow-up. 'S RIGHT TO DECLINE STATEMENT understands they have the right to decline the use of Telehealth Technology at any time without adverse affects on their continued access to healthcare. Suicide Screen: C-SSRS Screening [place]-Suicide Severity Rating Scale (C-SSRS Screener) 1. Over the past month, have you wished you were or wished you could go to sleep and not wake up? No 2. Over the past month, have you had any actual thoughts of killing yourself? No 3. Over the past month, have you been thinking about how you might do this? Response not required due to responses to other questions. 4. Over the past month, have you had these thoughts and had some intention of acting on them? Response not required due to responses to other questions. 5. Over the past month, have you started to work out or worked out the details of how to kill yourself? Response not required due to responses to other questions. 6. If yes, at any time in the past month did you intend to carry out this plan? Response not required due to responses to other questions. 7. In your lifetime, have you ever done anything, started to do anything, or prepared to do anything to end your life (for example, collected pills, obtained a gun, gave away valuables, went to the roof but didn't jump)? No 8. If YES, was this within the past 3 months? Response not required due to responses to other questions. Assessment/Plan: 1. left ankle pain/Hx of ORIF: stable, p rn Tylenol 2. tobacco use in history: smokes cigar daily, declines cessation 3. migraine hx: Stable, sumatriptan prn 4. family hx PVD/CAD: provided BP monito r w/ instrx. 03/02/18 lipids w/ LDL 52, will recheck next year. 5. OAB: Continue oxybutynin 10mg SA leonarda y. Next [facility] Urology w/ Dr Cruz in April. [facility] Appointment Date: 01/03/20@1430, YASMINE CRUZ MD, [facility] [id number], [id number], 05/22/19-07/01/20. 05/02/20 testosterone 172 L. Vet states his levels were rechecked by Dr Cruz and found to be wnl. No supplement needed. is involved in treatment decisions, options are discussed. Medications are reviewed, along with pros and cons and alternatives. Questions are encouraged and answered. Instructed to seek emergency medical care if necessary at nearest local facility, or call 911. Orders: 1. 12 month fasting lab and appt to foll ow at : lipids, cmp, cbc, tsh, psa, UA 2. please forward 03/06/[address] Cruz 3. please request office/consult notes f rom Dr Cruz /zulema/ SHYANNE ROBISON Signed: 03/27/2020 08:21 Receipt Acknowledged By: 03/27/2020 08:36 /es/ SOHAN Parks MA RTIN 03/27/2020 ADDENDUM STATUS: COMPLETED February LAB RESULTS FAXED TO DR. Kaylen CHANG AT [phone] THIS DATE FOR CHART INFORMATION TOGETHER WITH FAXED REQUEST FOR CHART NOTES FROM THE 'S CONSULT VISIT. CONFIRMATION OF FAX COMPLETION REC'D BY THIS WORKER AT 8;37. /zulema/ SOHAN VILLA Signed: 03/27/2020 08:46 SHYANNE GARCIA [facility]
--- OUTSIDE RECORDS SUMMARY | 2021-02-09 00:04 | XMS REPORT | Encounter Summary ---
Author Author Department [facility] LUCINA williamson Organization Department of [facility] Address Unknown Phone Unavailable Care Team Providers Care Mechanic Sound Technician Name Role Phone SHYANNE GARCIA PCP Unavailable Insurance Providers: All historical and current No Data Provided for This Section Selected Encounter This section includes the information on record at [place] for the Encounter. Date/Time Encounter Type Encounter Description Reason Provider Source Mar 27, 2020 12:00 AM Outpatient Encounter EVENT (HISTORICAL) IHE Encounter Template Text not used by [place] Assessments - Encounter Diagnoses No Data Provided for This Section Plan of Treatment: Future Appointments (+ 6 months) and Future Tests (+/- 45 day s) The Plan of Treatment section includes future care activities for the patient fr om all [place] treatment facilities. This section includes future appointments and fu ture orders which are active, pending or scheduled. Future Appointments This section includes appointments that were scheduled t o occur 6 months from the date of the Encounter, up to a maximum of 20 appointme nts. The data comes from all [place] treatment facilities. Appointment Date/Time Appointment Type Appointment Facili ty Name Jun 20, 2020 01:00 PM [facility]ATORY [facility] NONE [facility] July 16, 2020 01:00 PM AMBULATORY - NONE [facility] July 17, 2020 01:00 PM [facility] [place] [facility] July 18, 2020 01:30 PM AMBULATORY - PSYCHIATRY [facility] July 18, 2020 01:31 PM [facility] [place] [facility] [facility] [place] [facility] Aug 08, 2020 02:00 PM AMBULATORY - NONE [facility] Sep 09, 2020 03:00 PM AMBULATORY - NONE [facility] 15 Surgical Procedures: All associated to the encounter No Data Provided for This Section Lab Results: +/- 30 days of the encounter This section includes the Chemistry and Hematology Lab R esults on record with [place] for the patient. Radiology Reports and Pathology Report s are provided separately, in subsequent sections. Lab Results This section contains the Chemistry/Hematology Results zenobia t were resulted 30 days before or 30 days after the date of the Encounter. Date/Time Source Result Type Result - Unit Interpretation Reference Range Comment Mar 06, 2020 11:35 AM [facility] LIPID PROFILE(HDL,TRI G,CHOL,LDL) Specimen Type: PLASMA No comment entered. Ordering Provider: SHYANNE GARCIA Report Released Date/Time: May 22, 2019 07:32 AM Reporting Lab: [facility] [place] [facility] [address] [facility] [address] Performing Lab: [facility] [place] [facility] [address] [facility] [address] CHOLESTEROL 138 mg/dL 0-200 TRIGS 66 mg/dL 0-150 HDL-CHOLESTEROL 45 mg/dL > 40 LDL (CALC) 80 mg/dL 0-99 Mar 06, 2020 11:35 AM [facility] CBC & DIFF Speci men Type: BLOOD No comment entered. Ordering Provider: SHYANNE GARCIA Report Released Date/Time: May 22, 2019 07:32 AM Reporting Lab: [facility] [place] [facility] [address] [facility] [address] Performing Lab: [facility] [place] [facility] [address] [facility] [address] WBC 7.78 K/cmm 3.60-11.20 RBC 5.73 M/ul [...] 0.3 % Mar 06, 2020 11:35 AM [facility] COMPREHENSIVE METABOL IC PANEL Specimen Type: PLASMA No comment entered. Ordering Provider: SHYANNE GARCIA Report Released Date/Time: May 22, 2019 07:32 AM Reporting Lab: [facility] [employer] [address] [facility] [address] Performing Lab: [facility] [address] [facility] [address] *CREATININE 0.89 mg/dL 0.70-1.30 UREA NITROGEN mg/dL [...] EGFR 99.1 Mar 06, 2020 11:35 AM [facility] TSH Speci men Type: SERUM No comment entered. Ordering Provider: SHYANNE GARCIA Report Released Date/Time: May 22, 2019 07:32 AM Reporting Lab: [facility] [address] [facility] [address] Performing Lab: [facility] [address] [facility] [address] TSH 1.499 uIU/mL 0.47-5.00 Mar 06, 2020 11:35 AM [facility] PROSTATIC SPECIFIC AN TIGEN(TOTAL) Specimen Type: SERUM No comment entered. Ordering Provider: SHYANNE GARCIA Report Released Date/Time: May 22, 2019 07:32 AM Reporting Lab: [facility] [place] [facility] [address] [facility] [address] Performing Lab: [facility] [address] [facility] [address] PROSTATIC SPECIFIC ANTIGEN(TOTAL) 0.26 ng/mL 0.00-4.00 Mar 06, 2020 11:35 AM [facility] URINALYSIS Speci men Type: URINE No comment entered. Ordering Provider: SHYANNE GARCIA Report Released Date/Time: May 22, 2019 07:32 AM Reporting Lab: [facility] [place] [facility] [address] [facility] [address] Performing Lab: [facility] [address] [facility] [address] URINE COLOR Yellow SPECIFIC GRAVITY 1.018 1.005-1.030 [...]
--- OUTSIDE RECORDS SUMMARY | 2021-02-09 00:04 | XMS REPORT | Encounter Summary ---
Author Author Department [facility] LUCINA williamson Organization Department of [facility] Address Unknown Phone Unavailable Care Team Providers Care Finger Waver Name Role Phone RADHA SHYANNE PCP Unavailable Insurance Providers: All historical and current No Data Provided for This Section Selected Encounter This section includes the information on record at [place] for the Encounter. Date/Time Encounter Type Encounter Description Reason Provider Source May 01, 2020 09:42 AM Outpatient Encounter PRIMARY CARE/MEDICINE IHE Encounter Template Text not used by [place] Assessments - Encounter Diagnoses No Data Provided for This Section Plan of Treatment: Future Appointments (+ 6 months) and Future Tests (+/- 45 day s) The Plan of Treatment section includes future care activities for the patient fr om all [place] treatment facilities. This section includes future appointments and fu ture orders which are active, pending or scheduled. Future Appointments This section includes appointments that were scheduled t o occur 6 months from the date of the Encounter, up to a maximum of 20 appointme nts. The data comes from all [place] treatment facilities. Appointment Date/Time Appointment Type Appointment Facili ty Name Jun 20, 2020 01:00 PM AMBULATORY - NONE [facility] July 16, 2020 01:00 PM AMBULATORY - NONE [facility] July 17, 2020 01:00 PM [facility] [place] [facility] July 18, 2020 01:30 PM [facility] July 18, 2020 01:31 PM [facility] [place] [facility] [place] [facility] Aug 08, 2020 02:00 PM AMBULATORY - NONE [facility] Sep 09, 2020 03:00 PM AMBULATORY - NONE [facility] 15 Surgical Procedures: All associated [...] the Encounter. Date/Time Encounter Note(s) Provider Source May 01, 2020 09:42 AM ADMINISTRATIVE NOTE: [facility] TITLE: EK-ADMINISTRATIVE STANDARD TITLE: ADMINISTRATIVE NOTE DATE OF NOTE: MAY 01, 2020@09:42 ENTRY DATE: MAY 01, 2020@09:43:14 AUTHOR: CHICHI NASCIMENTO COSIGNER: URGENCY: STATUS: COMPLETED SPOKE WITH PATIENT TODAY PATIENT DECLINED THE SENDY AND SENDY VACCINE /es/ AMARIS NASCIMENTO ADVANCED JOINER HELPER Signed: 05/01/2020 09:43 AMARIS NASCIMENTO [facility]
[2021-02-09] MEDS ORDERED: diphenhydrAMINE 50 MG/ML INJ (BENADRYL) IM STA (00:14)
[2021-02-09] MEDS ORDERED: METOCLOPRAMIDE INJ 10 MG/2 ML (REGLAN) IM STA (00:14)
[2021-02-09] MEDS ORDERED: KETOROLAC 60 MG/2 ML VIAL IM STA (00:14)
--- NOTE | 2021-02-09 00:18 | ED Headache ---
General Chief Complaint: Head/Cervical Problems Stated Complaint: MIGRAINE Nursing Triage Note: Patient states that he has been getting cluster headaches for approximately 3 years and that he takes Sumatriptan for. Patient states he has taken his max dose of his medication and is unable to get the headache to go away. Patient states he has had this headache for 10 days. Patient rates his pain at a 5. Source: patient History of Present Illness Date Seen by Provider: Feb 08, 2021 Time Seen by Provider: 23:57 Initial Comments 30 yo male presents with complaint of left sided migraine headaches for last 10 days. He reports having cluster migraine history and takes sumatriptan for it. He still has the pain to the left top side of his head. He has no nausea, vomiting, fever, chills, neck pain, sore throat, change in vision. He has not s een clinic or check back with primary during this last 10 day stretch of migraines. His made him come to the ED tonight due to him crying with the pain earlier. He denies any recent head trauma. No numbness or weakness in extremities. Severity/Quality: severe Location: parietal Prior Headaches/Recent Trauma: chronic headaches Associated Symptoms: No confusion; fatigue; No facial pain, No fever/chills, No flushing, No loss of consciousness, No nausea/vomiting, No nasal congestion, No nasal drainage, No numbness in legs/feet, No rash, No seizures, No sinus infection, No stiff neck, No vision changes, No weakness Allergies and Home Medications Allergies Coded Allergies: amoxicillin (Verified Allergy, Unknown, 02/09/21) Patient Home Medication List Home Medication List Reviewed: Yes Review of Systems Review of Systems Constitutional: No chills, No dizziness, No fever, No malaise Eyes: Denies Blurred Vision, Denies Photophobia Ears, Nose, Mouth, Throat: denies ear pain, denies ear discharge, denies nose discharge Respiratory: No cough, No short of breath Cardiovascular: No chest pain Gastrointestinal: No nausea, No vomiting Genitourinary: no symptoms reported Musculoskeletal: no symptoms reported Skin: No rash Psychiatric/Neurological: See HPI, Headache Past Wnvrbae-Xhqopb-Fnnwyr Hx Patient Social History Tobacco Use?: No Alcohol Use?: No Pt feels they are or have been: No Past Medical History Surgery/Hospitalization HX: Cluster Headaches Physical Exam Vital Signs Vital Signs - First Documented 02/09/21 00:02 Temp 36.3 Pulse 81 Resp 14 B/P (MAP) 149/98 (115) Pulse Ox 96 O2 Delivery Room Air Capillary Refill : Less Than 3 Seconds Height, Weight, BMI Height: '" Weight: lbs. oz. kg; 21.00 BMI Method: General Appearance: WD/WN, no apparent distress HEENT: PERRL/EOMI, normal ENT inspection, TMs normal, pharynx normal, other (tenderness to palpation over left frontal sinus) Neck: non-tender, full range of motion, supple, normal inspection Cardiovascular: normal peripheral pulses, regular rate, rhythm Respiratory: chest non-tender, lungs clear, normal breath sounds Psychiatric: alert, oriented x 3 Crainal Nerves: normal hearing, normal speech, PERRL Coordination/Gait: normal gait Motor/Sensory: no motor deficit, no sensory deficit Skin: normal color, warm/dry; No rash Progress/Results/Core Measures Results/Orders My Orders Orders - NARCISA THOMAS MD Ketorolac Injection (Toradol Injection) (02/09/21 00:14) Diphenhydramine Injection (Benadryl Inje (02/09/21 00:14) Metoclopramide Injection (Reglan Injecti (02/09/21 00:14) Vital Signs/I&O 02/09/21 00:02 Temp 36.3 Pulse 81 Resp 14 B/P (MAP) 149/98 (115) Pulse Ox 96 O2 Delivery Room Air Blood Pressure Mean: 115 Progress Progress Note : Progress Note Advised he will need to check with clinic and may need to be on prophylactic medicine instead of just the sumatriptan when he has the pain. They may want him to see Neurology as well. For tonight will give Migraine Cocktail of medicines, Toradol 60 mg IM for pain, Benadryl 50 mg IM for antihistamine effect and to he lp him rest, Metoclopramide 10 mg IM that helps migraine/nausea/rest. Counseled on follow up and return precautions. Departure Impression Primary Impression: Migraine-cluster headache syndrome Disposition: 01 HOME, SELF-CARE Condition: Stable Departure-Patient Inst. Decision time for Depature: 00:16 Referrals: NO,LOCAL PHYSICIAN (PCP/Family) Primary Care Physician Patient Instructions: Headache, Adult ED, Home Headache Remedies, Migraines in Adults Add. Discharge Instructions: Try resting in a cool dark room tonight. Follow up with clinic about recurrent migraine headaches to see if they need to do anything different or have you see a Neurology/Migraine specialist All discharge instructions reviewed with patient and/or family. Voiced understanding. Work/School Note: Work Release Form Date Seen in the Emergency Department: Feb 08, 2021 Return to Work: Feb 10, 2021 Restrictions: No Restrictions NARCISA THOMAS MD Feb 09, 2021 00:17
== END 2021-02-09 00:23 | disposition home or self-care (01) ==
LOC: EDUNIT# 23:55 → ER FS 23:58
DX: G44.029 Chronic cluster headache, not intractable (principal); G43.909 Migraine, unspecified, not intractable, without status migrainosus; Z79.899 Other long term (current) drug therapy
CPT/HCPCS: 99284

== ENCOUNTER 2021-02-11 21:52 | Emergency (ER) | payer OTHER ==
[~2021-02-11] VITALS: Ht 190 cm; Wt 81.8 kg
--- OUTSIDE RECORDS SUMMARY | 2021-02-11 21:57 | XMS REPORT | Encounter Summary ---
Author Author Department [facility] LUCINA williamson Organization Department [facility] Address Unknown Phone Unavailable Care Team Providers Care Machine Setter And Repairer Name Role Phone MELVIN GARCIAA PCP Unavailable Insurance Providers: All historical and current No Data Provided for This Section Selected Encounter This section includes the information on record at [place] for the Encounter. Date/Time Encounter Type Encounter Description Reason Provider Source Jul 29, 2020 09:00 AM Outpatient Encounter ADMIN PAT ACTIVTIES (MASNO NCT) IHE Encounter Template Text not used by [place] Assessments - Encounter Diagnoses No Data Provided for This Section Plan of Treatment: Future Appointments (+ 6 months) and Future Tests (+/- 45 day s) The Plan of Treatment section includes future care activities for the patient fr om all [place] treatment facilities. This section includes future appointments and fu ture orders which are active, pending or scheduled. Future Appointments This section includes appointments that were scheduled t o occur 6 months from the date of the Encounter, up to a maximum of 20 appointme nts. The data comes from all [place] treatment facilities. Appointment Date/Time Appointment Type Appointment Facili ty Name Aug 08, 2020 02:00 PM AMBULATORY - NONE [facility] Sep 09, 2020 03:00 PM AMBULATORY - NONE [facility] [place] [facility] 15 Surgical Procedures: [...] and tobacco- related health factors from the [place] facility where the Encounter took place. Current Smoking Status This section includes the most current smoking, or tobacco -related health factor, from the [place] facility where the Encounter took place. Date/Time Current Smoking Status Comment Facility Feb 15, 2018 08:56 AM VA-TOBACCO USER SOME DAYS [facility] [place] [facility] Tobacco Use History This section includes a history of the smoking, or tobacco -related health factors, that were collected on or before the date of the Encoun ter. The data comes from the [place] facility where the Encounter took place. Date/Time Smoking Status/Tobacco Use Comment [facility] it Feb 15, 2018 08:56 AM VA-TOBACCO USE 1 TO < 5 YEARS [facility] [place] [facility] Feb 15, 2018 08:56 AM VA-TOBACCO USE ADVICE [facility] [place] [facility] Feb 15, 2018 08:56 AM VA-TOBACCO USE PAPER MAKER NO [facility] [place] [facility] Feb 15, 2018 08:56 AM VA-TOBACCO USE MED NO [facility] [place] [facility] Feb 15, 2018 08:56 AM VA-TOBACCO USER SOME DAYS [facility] [place] [facility] Advance Directives: All historical [...] that date and time. /zulema/ AMADEO ESQUEDA COMMISSARY CLERK Signed: 07/29/2020 09:07 Receipt Acknowledged By: * AWAITING SIGNATURE * LEON DA SILVA * AWAITING SIGNATURE * FRANTZF,AMADEO MAURO [facility] [place] [facility]
--- OUTSIDE RECORDS SUMMARY | 2021-02-11 21:57 | XMS REPORT | Encounter Summary ---
Author Author Department [facility] LUCINA williamson Organization Department [facility] Address Unknown Phone Unavailable Care Team Providers Care Water Plumber Name Role Phone RADHA SHYANNE PCP Unavailable Insurance Providers: All historical and current No Data Provided for This Section Selected Encounter This section includes the information on record at [place] for the Encounter. Date/Time Encounter Type Encounter Description Reason Provider Source Feb 04, 2021 01:18 PM Outpatient Encounter ADMIN PAT ACTIVTIES (MASNO NCT) IHE Encounter Template Text not used by [place] Assessments - Encounter Diagnoses No Data Provided for This Section Plan of Treatment: Future Appointments (+ 6 months) and Future Tests (+/- 45 day s) The Plan of Treatment section includes future care activities for the patient fr om all [place] treatment facilities. This section includes future appointments and fu ture orders which are active, pending or scheduled. Future Appointments This section includes appointments that were scheduled t o occur 6 months from the date of the Encounter, up to a maximum of 20 appointme nts. The data comes from all [place] treatment facilities. Appointment Date/Time Appointment Type Appointment Facili ty Name Mar 05, 2021 07:30 AM AM[facility]ULATORY - MEDICINE [facility] Mar 05, 2021 08:00 AM AMBULATORY - MEDICINE [facility] Active, Pending, and Scheduled Orders This [...] the Encounter. The data comes from all [place] treatment facilities. Test Date/Time Test Type Test Details Facility Name Mar 05, 2021 12:00 AM Laboratory - Chemistry Order LIPID PROFILE(HDL,TRIG,CHOL,LDL) GREEN TOP TUBE PLASMA [facility] Mar 05, 2021 12:00 AM Laboratory - Chemistry Order COMPREHEN SIVE METABOLIC PANEL GREEN TOP TUBE PLASMA [facility] Mar 05, 2021 12:00 AM Laboratory - Chemistry Order CBC & DIF F 5 ML LAVENDER TOP BLOOD [facility] Mar 05, 2021 12:00 AM Laboratory - Chemistry Order TSH SST GEL S AKILA [facility] Mar 05, 2021 12:00 AM Laboratory - Chemistry Order PROSTATIC SPECIFIC ANTIGEN(TOTAL) SST GEL SERUM [facility] Mar 05, 2021 12:00 AM Laboratory - Chemistry Order URINALYSI S URIN,RAND URINE [facility] Surgical Procedures: All associated to the encounter [...] and tobacco- related health factors from the [place] facility where the Encounter took place. Current Smoking Status This section includes the most current smoking, or tobacco -related health factor, from the [place] facility where the Encounter took place. Date/Time Current Smoking Status Comment Facility Feb 15, 2018 08:56 AM VA-TOBACCO USER SOME DAYS [facility] [place] [facility] Tobacco Use History This section includes a history of the smoking, or tobacco -related health factors, that were collected on or before the date of the Encoun ter. The data comes from the [place] facility where the Encounter took place. Date/Time Smoking Status/Tobacco Use Comment Facil ity Feb 15, 2018 08:56 AM VA-TOBACCO USE 1 TO < 5 YEARS [facility] [place] [facility] Feb 15, 2018 08:56 AM VA-TOBACCO USE ADVICE [facility] [place] [facility] Feb 15, 2018 08:56 AM VA-TOBACCO USE PITTING MACHINE OPERATOR NO [facility] [place] [facility] Feb 15, 2018 08:56 AM VA-TOBACCO USE MED NO [facility] [place] [facility] Feb 15, 2018 08:56 AM VA-TOBACCO USER SOME DAYS [facility] [place] [facility] Advance Directives: All historical and [...] Acknowledged By: 02/04/2021 13:47 /zulema/ BEN DORSEY [facility] [place] [facility]
--- OUTSIDE RECORDS SUMMARY | 2021-02-11 21:58 | XMS REPORT | Encounter Summary ---
Author Author Department [facility] LUCINA williamson Organization Department [facility] Address Unknown Phone Unavailable Care Team Providers Care Faculty Dean Name Role Phone RADHA SHYANNE PCP Unavailable Insurance Providers: All historical and current No Data Provided for This Section Selected Encounter This section includes the information on record at [place] for the Encounter. Date/Time Encounter Type Encounter Description Reason Provider Source Sep 09, 2020 08:00 AM Outpatient Encounter ADMIN PAT ACTIVTIES (MASNO NCT) IHE Encounter Template Text not used by [place] Assessments - Encounter Diagnoses No Data Provided [...] 05, 2021 07:30 AM AM[facility]ULATORY - MEDICINE [facility] Mar 05, 2021 08:00 AM AMBULATORY - MEDICINE [facility] Surgical Procedures: All associated to the [...] and tobacco- related health factors from the [place] facility where the Encounter took place. Current Smoking Status This section includes the most current smoking, or tobacco -related health factor, from the [place] facility where the Encounter took place. Date/Time Current Smoking Status Comment Facility Feb 15, 2018 08:56 AM VA-TOBACCO USER SOME DAYS [facility] [place] [facility] Tobacco Use History This section includes a history of the smoking, or tobacco -related health factors, that were collected on or before the date of the Encoun ter. The data comes from the [place] facility where the Encounter took place. Date/Time Smoking Status/Tobacco Use Comment Facil ity Feb 15, 2018 08:56 AM VA-TOBACCO USE 1 TO < 5 YEARS [facility] [place] [facility] Feb 15, 2018 08:56 AM VA-TOBACCO USE ADVICE [facility] [place] [facility] Feb 15, 2018 08:56 AM VA-TOBACCO USE DIRECTOR DERMATOLOGY NO [facility] [place] [facility] Feb 15, 2018 08:56 AM VA-TOBACCO USE MED NO [facility] [place] [facility] Feb 15, 2018 08:56 AM VA-TOBACCO USER SOME DAYS [facility] [place] [facility] Advance Directives: All historical and [...] display list. /zulema/ VENESSA DE LA GARZA ACETYLENE OPERATOR Signed: 10/17/2020 09:19 VENESSA DE LA GARZA [facility] [place] [facility]
--- OUTSIDE RECORDS SUMMARY | 2021-02-11 21:58 | XMS REPORT | Encounter Summary ---
Author Author Department [facility] LUCINA williamson Organization Department [facility] Address Unknown Phone Unavailable Care Team Providers Care Qualitative Field Coordinator Name Role Phone SHYANNE GARCIA PCP Unavailable Insurance Providers: All historical and current No Data Provided for This Section Selected Encounter This section includes the information on record at [place] for the Encounter. Date/Time Encounter Type Encounter Description Reason Provider Source July 16, 2020 01:45 PM Outpatient Encounter ADMIN PAT ACTIVTIES (MASNO NCT) IHE Encounter Template Text not used by [place] Assessments - Encounter Diagnoses No Data Provided for This Section Plan of Treatment: Future Appointments (+ 6 months) and Future Tests (+/- 45 day s) The Plan of Treatment section includes future care activities for the patient fr om all [place] treatment facilities. This section includes future appointments and fu ture orders which are active, pending or scheduled. Future Appointments This section includes appointments that were scheduled t o occur 6 months from the date of the Encounter, up to a maximum of 20 appointme nts. The data comes from all [place] treatment facilities. Appointment Date/Time Appointment Type Appointment Facili ty Name July 17, 2020 01:00 PM AMBULATORY - PS[facility]IATRY [facility] [facility] July 18, 2020 01:30 PM AMBULATORY - PSYCHI[facility]RY [facility] July 18, 2020 01:31 PM [facility] [place] [facility] [place] [facility] Aug 08, 2020 02:00 PM AMBULATORY - NONE [facility] Sep 09, 2020 03:00 PM AMBULATORY - NONE [facility] VISN 15 Surgical Procedures: [...] and tobacco- related health factors from the [place] facility where the Encounter took place. Current Smoking Status This section includes the most current smoking, or tobacco -related health factor, from the [place] facility where the Encounter took place. Date/Time Current Smoking Status Comment Facility Feb 15, 2018 08:56 AM VA-TOBACCO USER SOME DAYS [facility] Tobacco Use History This section includes a history of the smoking, or tobacco -related health factors, that were collected on or before the date of the Encoun ter. The data comes from the [place] facility where the Encounter took place. Date/Time Smoking Status/Tobacco Use Comment 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 /zulema/ AMADEO ESQUEDA ELECTRONIC TRAIN CONTROL TECHNICIAN Signed: 07/16/2020 13:48 Receipt Acknowledged By: * AWAITING SIGNATURE * REFF,JERRY ESQUEDA,AMADEO Parks [facility]
--- OUTSIDE RECORDS SUMMARY | 2021-02-11 21:58 | XMS REPORT | Encounter Summary ---
Author Author Department [facility] LUCINA williamson Organization Department [facility] Address Unknown Phone Unavailable Care Team Providers Care Optimization Specialist Name Role Phone SHYANNE GARCIA PCP Unavailable [...] 16, 2020 01:00 PM AMBULATORY - NONE [facility] July 17, 2020 01:00 PM AMBULATORY - PS[facility]IATRY [facility] [place] [facility] July 18, 2020 01:30 PM AMBULATORY - PSYCHIATRY [facility] July 18, 2020 01:31 PM [facility] Aug 08, 2020 02:00 PM AMBULATORY - NONE [facility] Sep 09, 2020 03:00 PM AMBULATORY - NONE [facility] BOB T, VISN 15 Surgical Procedures: [...] 2018 08:56 AM VA-TOBACCO USER SOME DAYS [facility] [place] [facility] Tobacco Use History This section includes a history of the smoking, or tobacco -related health factors, that were collected on or before the date of the Encoun ter. The data comes from the [place] facility where the Encounter took place. Date/Time Smoking Status/Tobacco Use Comment [facility] ity Feb 15, 2018 08:56 AM VA-TOBACCO USE 1 TO < 5 YEARS [facility] [place] [facility] Feb 15, 2018 08:56 AM VA-TOBACCO USE ADVICE [facility] [place] [facility] Feb 15, 2018 08:56 AM VA-TOBACCO USE SECURITY COMPLIANCE SPECIALIST NO [facility] [place] [facility] Feb 15, 2018 08:56 AM VA-TOBACCO USE MED NO [facility] [place] [facility] Feb 15, 2018 08:56 AM VA-TOBACCO USER SOME DAYS [facility] [place] [facility] Advance Directives: All historical [...] AWAITING SIGNATURE * RAYMOND WESTON SIDNEY B [facility]
--- OUTSIDE RECORDS SUMMARY | 2021-02-11 21:58 | XMS REPORT | Encounter Summary ---
[facility] Address Unknown Phone Unavailable Care Team Providers Care Cable Television Line Technician Name Role Phone RADHASHYANNE PCP Unavailable Insurance Providers: All historical and current No Data Provided for This Section Selected Encounter This section includes the information on record at [place] for the Encounter. Date/Time Encounter Type Encounter Description Reason Provider Source Oct 17, 2020 10:42 AM Outpatient Encounter OPTOMETRY IHE Encounter Template Text not used by [place] Assessments - Encounter Diagnoses No Data Provided for This Section Plan of Treatment: Future Appointments (+ 6 months) and Future Tests (+/- 45 day s) The Plan of Treatment section includes future care activities for the patient fr om all [place] treatment facilities. This section includes future appointments and fu ture orders which are active, pending or scheduled. Future Appointments This section includes appointments that were scheduled t o occur 6 months from the date of the Encounter, up to a maximum of 20 appointme nts. The data comes from all [place] treatment facilities. Appointment Date/Time Appointment Type Appointment Facili ty Name Mar 05, 2021 07:30 AM AMBULATORY - MEDICINE [facility] Mar 05, 2021 08:00 AM AMBULATORY - MEDICINE [facility] Surgical Procedures: All associated to [...] OD Date of examination: September 17, 2020 [place] Sent Out for Routine Eye Exam: Other: The 's Complaint was Refraction if Routine Exam Acuity if Other Right: -0.75-0.07a256 20/20 Left: -0.7520/ Impression: 1. refractive error 2. pinguecula bilateral 3. 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 advised annual eye exams F/U needed: no further action requested See Scanned Document for details /zulema/ SIMON KNUTSON STAFF CANE WEIGHER Signed: 10/17/2020 10:52 SIMON KNUTSON [facility]
--- OUTSIDE RECORDS SUMMARY | 2021-02-11 21:58 | XMS REPORT | Encounter Summary ---
Author Author Department [facility] LUCINA williamson Organization Department [facility] Address Unknown Phone Unavailable Care Team Providers Care Agricultural Engineer Name Role Phone SHYANNE GARCIA PCP Unavailable Insurance Providers: All historical and current No Data Provided for This Section Selected Encounter This section includes the information on record at [place] for the Encounter. Date/Time Encounter Type Encounter Description Reason Provider Source Apr 29, 2020 11:58 AM Outpatient Encounter ADMIN PAT ACTIVTIES (MASNO NCT) IHE Encounter Template Text not used by [place] Assessments - Encounter Diagnoses No Data Provided for This Section Plan of Treatment: Future Appointments (+ 6 months) and Future Tests (+/- 45 day s) The Plan of Treatment section includes future care activities for the patient fr om all [place] treatment facilities. This section includes future appointments and fu ture orders which are active, pending or scheduled. Future Appointments This section includes appointments that were scheduled t o occur 6 months from the date of the Encounter, up to a maximum of 20 appointme nts. The data comes from all [place] treatment facilities. Appointment Date/Time Appointment Type Appointment Facili ty Name Jun 20, 2020 01:00 PM AMBULATORY - NONE [facility] July 16, 2020 01:00 PM AMBULATORY - NONE [facility] July 17, 2020 01:00 PM AMBULATORY - PS[facility]CHIATRY [facility] [place] [facility] July 18, 2020 01:30 PM AM[facility]ULAT[facility] July 18, 2020 01:31 PM [facility] Aug 08, 2020 02:00 PM AMBULATORY - NONE [facility] Sep 09, 2020 03:00 PM AMBULATORY - NONE [facility] [place] 15 Surgical Procedures: All [...] ROCIO KOHLI Signed: 04/29/2020 12:00 ROCIO KOHLI [facility] JAYME Guzman
--- OUTSIDE RECORDS SUMMARY | 2021-02-11 21:58 | XMS REPORT | Encounter Summary ---
Author Author Department [facility] LUCINA williamson Organization Department [facility] Address Unknown Phone Unavailable Care Team Providers Care Checker Loader Name Role Phone SHYANNE GARCIA PCP Unavailable [...] 27, 2020 07:30 AM AMBULATORY - [facility]ICINE [facility] Jun 20, 2020 01:00 PM AM[facility]ULATORY - NONE [facility] July 16, 2020 01:00 PM AMBULATORY - NONE [facility] July 17, 2020 01:00 PM AMBULATORY - PS[facility]IATRY [facility] [place] [facility] July 18, 2020 01:30 PM AMBULATORY - PS[facility]IATRY [facility] July 18, 2020 01:31 PM AMBUL[place] [facility] [place] [facility] Aug 08, 2020 02:00 PM AMBULATORY - NONE [facility] Surgical Procedures: All associated to [...] Range Comment Mar 06, 2020 11:35 AM [facility] LIPID PROFILE(HDL,TRI G,CHOL,LDL) Specimen Type: PLASMA No comment entered. Ordering Provider: SHYANNE GARCIA Report Released Date/Time: May 22, 2019 07:32 AM Reporting Lab: [facility] [address] [address] Performing Lab: [facility] [address] [address] CHOLESTEROL 138 mg/dL 0-200 TRIGS 66 mg/dL 0-150 HDL-CHOLESTEROL 45 mg/dL > 40 LDL (CALC) 80 mg/dL 0-99 Mar 06, 2020 11:35 AM [facility] CBC & DIFF Speci men Type: BLOOD No comment entered. Ordering Provider: SHYANNE GARCIA Report Released Date/Time: May 22, 2019 07:32 AM Reporting Lab: [facility] [place] [facility] [address] [facility] [address] Performing Lab: [facility] [address] [address] WBC 7.78 K/cmm 3.60-11.20 RBC 5.73 M/ul [...] 0.3 % Mar 06, 2020 11:35 AM [facility] COMPREHENSIVE METABOL IC PANEL Specimen Type: PLASMA No comment entered. Ordering Provider: SHYANNE GARCIA Report Released Date/Time: May 22, 2019 07:32 AM Reporting Lab: [facility] [address] [address] Performing Lab: [facility] DIV [address] [facility] [address] *CREATININE 0.89 mg/dL 0.70-1.30 UREA NITROGEN mg/dL [...] EGFR 99.1 Mar 06, 2020 11:35 AM [facility] TSH Speci men Type: SERUM No comment entered. Ordering Provider: SHYANNE GARCIA Report Released Date/Time: May 22, 2019 07:32 AM Reporting Lab: [facility] DIV [address] [facility] [address] Performing Lab: [facility] DIV [address] [facility] [address] TSH 1.499 uIU/mL 0.47-5.00 Mar 06, 2020 11:35 AM [facility] PROSTATIC SPECIFIC AN TIGEN(TOTAL) Specimen Type: SERUM No comment entered. Ordering Provider: SHYANNE GARCIA Report Released Date/Time: May 22, 2019 07:32 AM Reporting Lab: [facility] [address] [address] Performing Lab: [facility] [address] [facility] [address] PROSTATIC SPECIFIC ANTIGEN(TOTAL) 0.26 ng/mL 0.00-4.00 Mar 06, 2020 11:35 AM [facility] URINALYSIS Speci men Type: URINE No comment entered. Ordering Provider: SHYANNE GARCIA Report Released Date/Time: May 22, 2019 07:32 AM Reporting Lab: [facility] [address] [facility] [address] Performing Lab: [facility] [address] [facility] [facility] [address] URINE COLOR Yellow SPECIFIC GRAVITY 1.018 1.005-1.030 [...] and tobacco- related health factors from the [place] facility where the Encounter took place. Current Smoking Status This section includes the most current smoking, or tobacco -related health factor, from the [place] facility where the Encounter took place. Date/Time Current Smoking Status Comment Facility Feb 15, 2018 08:56 AM VA-TOBACCO USER SOME DAYS [facility] [email or web address] [facility] Tobacco Use History This section includes a history of the smoking, or tobacco -related health factors, that were collected on or before the date of the Encoun ter. The data comes from the [place] facility where the Encounter took place. Date/Time Smoking Status/Tobacco Use Comment Facil ity Feb 15, 2018 08:56 AM VA-TOBACCO USE 1 TO < 5 YEARS [facility] [place] [facility] Feb 15, 2018 08:56 AM VA-TOBACCO USE ADVICE [facility] [place] [facility] Feb 15, 2018 08:56 AM VA-TOBACCO USE PUBLIC WORKS DIRECTOR NO [facility] [place] [facility] Feb 15, 2018 08:56 AM VA-TOBACCO USE MED NO [facility] [place] [facility] Feb 15, 2018 08:56 AM VA-TOBACCO USER SOME DAYS [facility] [place] [facility] Advance Directives: All historical [...] 2 weeks. Result: Screen is negative. /zulema/ ABUNDIO Sommers [employer] Signed: 03/06/2020 11:34 ABUNDIO TAY [facility] [place] [facility]
--- OUTSIDE RECORDS SUMMARY | 2021-02-11 21:59 | XMS REPORT | Encounter Summary ---
Author [facility] Address Unknown Phone Unavailable Care Team Providers Care Dictaphone Typist Name Role Phone SHYANNE GARCIA PCP Unavailable Insurance Providers: All historical and current No Data Provided for This Section Selected Encounter This section includes the information on record at [place] for the Encounter. Date/Time Encounter Type Encounter Description Reason Provider Source July 18, 2020 01:30 PM TELEHEALTH FACILITY [facility] - IND ICD-10-CM F31.9 Bipolar disorder, unspecified with Provider Comments: Bipolar II disorder ([facility] [id number]) TERRANCE BARRIOS Kaylen Encounter Template Text not used by [place] Assessments - Encounter Diagnoses This section includes the primary and secondary diag noses documented for the Encounter. Date/Time Primary/Secondary Diagnosis Diagnosis Name Provider Source July 20, 2020 02:24 PM PRIMARY Bipolar disorder, unspecified [facility] Plan of Treatment: Future Appointments (+ 6 months) and Future Tests (+/- 45 day s) The Plan of Treatment section includes future care activities for the patient fr om all [place] treatment facilities. This section includes future appointments and fu ture orders which are active, pending or scheduled. Future Appointments This section includes appointments that were scheduled t o occur 6 months from the date of the Encounter, up to a maximum of 20 appointme nts. The data comes from all [place] treatment facilities. Appointment Date/Time Appointment Type Appointment Facili ty Name Aug 08, 2020 02:00 PM AMBULATORY - NONE [facility] Sep 09, 2020 03:00 PM AMBULATORY - NONE [facility] BOB T, VISN 15 Surgical Procedures: All associated to the encounter This section includes all Surgical Procedures and Surgical Procedure Notes assoc iated to the Encounter. Surgical Procedures This section includes all Surgical Procedures associated to the Encounter. Surgical Procedure Date/Time Procedure Procedure Type Procedure Qualifiers Provider Source July 18, 2020 01:30 PM Telehealth Facility Fee [facility] FACILITY Dany COLLINS DENIS,TERRANCE Patino [facility] Surgical Notes There are no notes [...] and tobacco- related health factors from the [place] facility where the Encounter took place. Current Smoking Status This section includes the most current smoking, or tobacco -related health factor, from the [place] facility where the Encounter took place. Date/Time Current Smoking Status Comment Facility Mar 27, 2020 07:30 AM VA-TOBACCO USER EVERY DAY [facility] Tobacco Use History This section includes a history of the smoking, or tobacco -related health factors, that were collected on or before the date of the Encoun ter. The data comes from the [place] facility where the Encounter took place. Date/Time Smoking Status/Tobacco Use Comment Selam rodas Mar 27, 2020 07:30 AM VA-TOBACCO USE 5 TO 15 YEARS [facility] Mar 27, 2020 07:30 AM VA-TOBACCO USE ADVICE [facility] Mar 27, 2020 07:30 AM VA-TOBACCO USE BILINGUAL ACCOUNT MANAGER NO [facility] Mar 27, 2020 07:30 AM VA-TOBACCO USE MED NO [facility] Mar 27, 2020 07:30 AM VA-TOBACCO USER EVERY DAY [facility] Feb 06, 2019 05:16 PM VA-TOBACCO DOESNT USE WI 30 MIN WAKEUP [facility] Feb 06, 2019 05:16 PM VA-TOBACCO USE > 15 LESS THAN 30 YEARS [facility] Feb 06, 2019 05:16 PM VA-TOBACCO USE ADVICE [facility] Feb 06, 2019 05:16 PM VA-TOBACCO USE BILINGUAL ACCOUNT MANAGER NO [facility] Feb 06, 2019 05:16 PM VA-TOBACCO USE MED NO [facility] Feb 06, 2019 05:16 PM VA-TOBACCO USER SOME DAYS [facility] Oct 29, 2010 07:46 AM CURRENT NON-TOBACCO USER [facility] Advance Directives: All historical and current No Data Provided for This Section Radiology Reports: +/- 30 days of the encounter No Data Provided for This Section Pathology Reports: +/- 30 days of the encounter No Data Provided for This Section Encounter Notes: All associated encounter notes No Data Provided for This Section
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
--- OUTSIDE RECORDS SUMMARY | 2021-02-11 21:59 | XMS REPORT | Encounter Summary ---
[facility] Address Unknown Phone Unavailable Care Team Providers Care Portrait Artist Name Role Phone SHYANNE GARCIA PCP Unavailable [...] unspecified with Provider Comments: Bipolar II disorder ([facility] [id number]) AMADEO ESQUEDA Encounter Template Text not used by [place] Assessments - Encounter Diagnoses This section includes the primary and secondary diag noses documented for the Encounter. Date/Time Primary/Secondary Diagnosis Diagnosis Name Provider Source Aug 08, 2020 03:00 PM PRIMARY Bipolar disorder, unspecified AMADEO PATTERSON [facility] Plan of Treatment: Future Appointments (+ [...] 09, 2020 03:00 PM AMBULATORY - NONE [facility], VISN 15 Surgical [...] PSYTX W PT 60 MIN UTES AJ-CLINICAL FORENSIC PATHOLOGIST AMADEO ESQUEDA [facility] Surgical Notes There are no notes [...] and tobacco- related health factors from the [place] facility where the Encounter took place. Current Smoking Status This section includes the most current smoking, or tobacco -related health factor, from the [place] facility where the Encounter took place. Date/Time Current Smoking Status Comment Facility Mar 27, 2020 07:30 AM VA-TOBACCO USER EVERY DAY [facility] Tobacco Use History This section includes a history of the smoking, or tobacco -related health factors, that were collected on or before the date of the Encoun ter. The data comes from the [place] facility where the Encounter took place. Date/Time Smoking Status/Tobacco Use Comment [facility] Mar 27, 2020 07:30 AM VA-TOBACCO USE 5 TO 15 YEARS [facility] Mar 27, 2020 07:30 AM VA-TOBACCO USE ADVICE [facility] Mar 27, 2020 07:30 AM VA-TOBACCO USE SPA THERAPIST NO [facility] Mar 27, 2020 07:30 AM VA-TOBACCO USE MED NO [facility] Mar 27, 2020 07:30 AM VA-TOBACCO USER EVERY DAY [facility] Feb 06, 2019 05:16 PM VA-TOBACCO DOESNT USE WI 30 MIN WAKEUP [facility] Feb 06, 2019 05:16 PM VA-TOBACCO USE > 15 LESS THAN 30 YEARS [facility] Feb 06, 2019 05:16 PM VA-TOBACCO USE ADVICE [facility] Feb 06, 2019 05:16 PM VA-TOBACCO USE SPA THERAPIST NO [facility] Feb 06, 2019 05:16 PM VA-TOBACCO USE MED NO [facility] Feb 06, 2019 05:16 PM VA-TOBACCO USER SOME DAYS [facility] Oct 29, 2010 07:46 AM CURRENT NON-TOBACCO USER [facility] Advance Directives: All historical and current No [...] Experienced feeling "overwhelmed" and stressed at times. [place] is on time. He is alert and [...] 22, 2020 at 1400 /es/ AMADEO ESQUEDA FORENSIC PATHOLOGIST Signed: 08/08/2020 15:09 Receipt Acknowledged By: * AWAITING SIGNATURE * REFF,AMADEO MAURO [facility]
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
--- OUTSIDE RECORDS SUMMARY | 2021-02-11 21:59 | XMS REPORT | Encounter Summary ---
Author [facility] Address Unknown Phone Unavailable Care Team Providers Care Aquatic Physiotherapist Name Role Phone SHYANNE GARCIA PCP Unavailable Insurance Providers: All historical and current No Data Provided for This Section Selected Encounter This section includes the information on record at [place] for the Encounter. Date/Time Encounter Type Encounter Description Reason Provider Source July 17, 2020 01:00 PM Outpatient Encounter [facility]PHONE [facility] Encounter Template Text not used by [place] [...] Appointment Type Appointment Facili ty Name July 18, 2020 01:30 PM AMBULATORY - PS[facility]IATRY [facility] July 18, 2020 01:31 PM AMBULATORY - [facility] [facility] [place] [facility] Aug 08, 2020 02:00 PM AMBULATORY - NONE [facility] Sep 09, 2020 03:00 PM AMBULATORY - NONE [facility] - [facility], VISN 15 [...] 2018 08:56 AM VA-TOBACCO USER SOME DAYS [facility] Tobacco Use History This section includes a history of the smoking, or tobacco -related health factors, that were collected on or before the date of the Encoun ter. The data comes from the [place] facility where the Encounter took place. Date/Time Smoking Status/Tobacco Use Comment [facility] it Feb 15, 2018 08:56 AM VA-TOBACCO USE 1 TO < 5 YEARS [facility] [facility] Feb 15, 2018 08:56 AM VA-TOBACCO USE ADVICE [facility] Feb 15, 2018 08:56 AM VA-TOBACCO USE PULLMAN CONDUCTOR NO [facility] [place] [facility] Feb 15, 2018 08:56 AM VA-TOBACCO USE MED NO [facility] [place] [facility] Feb 15, 2018 08:56 AM VA-TOBACCO USER SOME DAYS [facility] [place] [facility] Advance Directives: All historical and [...] Encounter. Date/Time Encounter Note(s) Provider Source July 17, 2020 03:50 PM NO SHOW NOTE: LOCAL TITLE: EK-NO SHOW STANDARD TITLE: NO SHOW NOTE DATE OF NOTE: JULY 17, 2020@15:50 ENTRY DATE: JULY 17, 2020@15:50:12 AUTHOR: RONDA BASS EXP COSIGNER: URGENCY: STATUS: COMPLETED [place] was scheduled for RN Phone appointment; called as scheduled no answer left message with phone number requesting a return call. /zulema/ RONDA BASS RN Signed: 07/17/2020 16:02 RONDA BASS [facility]
--- OUTSIDE RECORDS SUMMARY | 2021-02-11 21:59 | XMS REPORT | Encounter Summary ---
Author Author Department [facility] LUCINA williamson Organization Department [facility] Address Unknown Phone Unavailable Care Team Providers Care Scientific Editor Name Role Phone SHYANNE GARCIA PCP Unavailable Insurance Providers: All historical and current No Data Provided for This Section Selected Encounter This section includes the information on record at [place] for the Encounter. Date/Time Encounter Type Encounter Description Reason Provider Source July 16, 2020 04:02 PM Outpatient Encounter ADMIN PAT ACTIVTIES ([facility] NCT) IHE Encounter Template Text not used by [place] Assessments - Encounter Diagnoses No Data Provided for This Section Plan of Treatment: Future Appointments (+ 6 months) and Future Tests (+/- 45 day s) The Plan of Treatment section includes future care activities for the patient fr om all [place] treatment facilities. This section includes future appointments and fu ture orders which are active, pending or scheduled. Future Appointments This section includes appointments that were scheduled t o occur 6 months from the date of the Encounter, up to a maximum of 20 appointme nts. The data comes from all [place] treatment facilities. Appointment Date/Time Appointment Type Appointment Facili ty Name July 17, 2020 01:00 PM AMBULATORY - [facility]IATRY [facility] [place] [facility] [place] [facility] July 18, 2020 01:30 PM AMBULATORY - PS[facility]CHIATRY [facility] July 18, 2020 01:31 PM AMBULATORY - [facility] Aug 08, 2020 02:00 PM AMBULATORY - NONE [facility] Sep 09, 2020 03:00 PM AMBULATORY - NONE [facility] T, VISN 15 Surgical Procedures: All [...] COSIGNER: URGENCY: STATUS: COMPLETED Department of 's [facility] [address] [place] [address] JULY 16, 2020 LUCINA BEGUM [address], [place] [address] Dear LUCINA BEGUM Please call us for an appointment. We have been trying to contact you to reschedule an appointment in [place], but we were unsuccessful in reaching you by telephone. It is important to your health that you do not have delays in your care. Please contact us to schedule your appointment within 14 days from the date of this letter. Please call toll free or ext:[phone]. This letter will 07/30/2020. Sincerely, [facility] JERRY MARIN [facility]
--- OUTSIDE RECORDS SUMMARY | 2021-02-11 21:59 | XMS REPORT ---
Author Author Department [facility] LUCINA williamson Organization Department [facility] Address Unknown Phone Unavailable Care Team Providers Care Department Specialist Name Role Phone RADHA SHYANNE PCP Unavailable Insurance Providers: All historical and current No Data Provided for This Section Selected Encounter This section includes the information on record at [place] for the Encounter. Date/Time Encounter Type Encounter Description Reason Provider Source Jul 31, 2020 01:44 PM Outpatient Encounter ADMIN PAT ACTIVTIES (MASNO NCT) IHE Encounter Template Text not used by [place] Assessments - Encounter Diagnoses No Data Provided [...] 08, 2020 02:00 PM AMBULATORY - NONE [facility] Sep 09, 2020 03:00 PM AMBULATORY - NONE [facility] Surgical Procedures: [...] Encounter. Date/Time Encounter Note(s) Provider Source Jul 31, 2020 01:44 PM LETTERS: LOCAL TITLE: GAVI UNABLE TO CONTACT PATIENT LETTER STANDARD TITLE: LETTERS DATE OF NOTE: JUL 31, 2020@13:44 ENTRY DATE: JUL 31, 2020@13:44:38 AUTHOR: TORRI LINO COSIGNER: URGENCY: STATUS: COMPLETED GAVI UNABLE TO CONTACT PATIENT LETTER Has ADDENDA Department of 's Affairs [place] [address] [place] [id number] JUL 31, 2020 LUCINA BEGUM [address], [place] [address] Dear LUCINA BEGUM Please call us for an appointment. We have been trying to contact you to schedule an appointment in [place], but we were unsuccessful in reaching you by telephone. It is important to your health that you do not have delays in your care. Please contact us to schedule your appointment within 14 days from the date of this letter. Please call toll free or ext: [phone]. Sincerely, Torri Lino, Lead Telehealth Medical Staff Manager [facility] Administrative Telephone Contact Today's Date: JUL 31, 2020 Appointment Date: Jul@14:00 TO--[facility]- SCT PM-EH Future Appointments: 08/08/2020 14:00 TO--[facility]-FT S CT 02/26/2021 09:00 TO-CLIN LAB FAST FT [facility] JOE 03/19/2021 08:00 TO-DANIEL OSEGUERA-PACT TEAM 1 P Attempts to contact the : phone call # 1 Letter sent in response to a consult/order (Estonian) Attempts to contact by phone for the following reason: Cancellation We have been unable to reach the at the following telephone number(s): [phone] Cell Other comments: attempting to RS CLCX 09/19/[address] Perez[place] [phone] callback and letter mailed that brody galeano [phone] 08/05/2020 ADDENDUM STATUS: COMPLETED Administrative Telephone Contact Today's Date: AUG 05, 2020 Appointment Date: Jul@14:00 TO-[facility] IND SWS-FT SCT PM-EH Future Appointments: 08/08/2020 14:00 TO-[facility] IND SWS-FT S CT 02/26/2021 09:00 TO-CLIN LAB FAST FT [facility] 03/19/2021 08:00 TO-FT OUMAR-PACT TEAM 1 P Attempts to contact the : phone call # 2 Attempts to contact by phone for the following reason: Cancellation We have been unable to reach the at the following telephone number(s): [phone] Cell Other comments: attempting to RS CLCX Chris in [place] on 09/19/20. [place] [phone] callback. letter previously sonido d expires on 08/14/20 /zulema/ TORRI LINO Lead Telehealth Clinical Medical Staff Manager Signed: 08/05/2020 11:38 08/26/2020 ADDENDUM STATUS: COMPLETED Administrative Telephone Contact Today's Date: AUG 26, 2020 Appointment Date: Aug@15:00 COM CARE-OTHER Future Appointments: 09/09/2020 15:00 COM CARE-OTHER 02/26/2021 09:00 TO-CLIN LAB FAST FT [facility] 03/19/2021 08:00 TO-FT OUMAR-PACT TEAM 1 P Attempts to contact the : phone call # 3 Letter sent in response to a consult/order (E[place]ian) Attempts to contact by phone for the following reason: Cancellation We have been unable to reach the at the following telephone number(s): [phone] Cell Other comments: attempting to RS CLCX 09/[address] Perez. VM left with [phone] callback and letter already sent on 08/14/20. If no response from patient by 08/29/20 will request disposition of RTC. /makenzie LINO Lead Telehealth Clinical Medical Staff Manager Signed: 08/26/2020 09:32 09/01/2020 ADDENDUM STATUS: COMPLETED Patient has had 3 phone calls with messages left and a letter mailed to patient in attempt to reschedule a clinic cancelled appt with Dr. Perez. Patient has failed to respond to any contact attempt. Requesting permission to disposition RTC for this visit. Clinic will remain available to schedule if patient should call back. /makenzie LINO Lead Telehealth Clinical Medical Staff Manager Signed: 09/01/2020 15:24 Receipt Acknowledged By: 09/15/2020 07:02 /zulema/ Robert Perez Jr., M.D. Staff Psychiatrist 09/02/2020 15:50 /makenzie HANDLEY RN 09/02/2020 ADDENDUM STATUS: COMPLETED Notified Dr. Perez of not responding to request to schedule appts. /zulema/ RONDA BASS RN Signed: 09/02/2020 15:52 11/21/2020 ADDENDUM STATUS: COMPLETED Dr. Perez is it alright to disposition this RTC that is months past date? Patient has not responded to a letter and 3 phone calls to try to get him RS. /makenzie LINO Lead Telehealth Clinical Medical Staff Manager Signed: 11/21/2020 15:57 TORRI LINO [facility] JAYME Guzman
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
--- OUTSIDE RECORDS SUMMARY | 2021-02-11 22:00 | XMS REPORT | Encounter Summary ---
[facility] Address Unknown Phone Unavailable Care Team Providers Care Spring Fitter Helper Name Role Phone SHALINI GARCIA PCP Unavailable Insurance Providers: All historical and current No Data Provided for This Section Selected Encounter This section includes the information on record at OR for the Encounter. Date/Time Encounter Type Encounter Description Reason Provider Source Jun 18, 2020 04:27 PM PT EDUCATION NOC INDIVID PRIMARY CARE/MEDI CINE ICD-10-CM F41.9 Anxiety disorder, unspecified with Provider Comments: Anxiety Disorder, unspecified DULCE JAY Encounter Template Text not used by OR Assessments - Encounter Diagnoses This section includes the primary and secondary diag noses documented for the Encounter. Date/Time Primary/Secondary Diagnosis Diagnosis Name Provider Source Jun 18, 2020 05:20 PM PRIMARY Anxiety disorder, unspecified WO DULCE VIDALES V [facility] Plan of Treatment: Future Appointments (+ 6 months) and Future Tests (+/- 45 day s) The Plan of Treatment section includes future care activities for the patient fr om all OR treatment facilities. This section includes future appointments and fu ture orders which are active, pending or scheduled. Future Appointments This section includes appointments that were scheduled t o occur 6 months from the date of the Encounter, up to a maximum of 20 appointme nts. The data comes from all OR treatment facilities. Appointment Date/Time Appointment Type Appointment Facili ty Name Jun 20, 2020 01:00 PM [facility]ORY [facility]ONE [facility] July 16, 2020 01:00 PM AMBULATORY - NONE [facility] July 17, 2020 01:00 PM [facility] [place] [facility] [place] [facility] July 18, 2020 01:30 PM AMBULATORY - PSYCHIATRY [facility] July 18, 2020 01:31 PM [facility] Aug 08, 2020 02:00 PM AMBULATORY - NONE [facility] Sep 09, 2020 03:00 PM AMBULATORY - NONE [facility] [place], [place] 15 Surgical Procedures: [...] per Session PT EDUCATION DULCE MEMBRENO V [facility] Surgical Notes There are no notes associated [...] and tobacco- related health factors from the OR facility where the Encounter took place. Current Smoking Status This section includes the most current smoking, or tobacco -related health factor, from the OR facility where the Encounter took place. Date/Time Current Smoking Status Comment Facility Mar 27, 2020 07:30 AM VA-TOBACCO USER EVERY DAY [facility] Tobacco Use History This section includes a history of the smoking, or tobacco -related health factors, that were collected on or before the date of the Encoun ter. The data comes from the OR facility where the Encounter took place. Date/Time Smoking Status/Tobacco Use Comment [facility] it Mar 27, 2020 07:30 AM VA-TOBACCO USE 5 TO 15 YEARS [facility] [address] Mar 27, 2020 07:30 AM VA-TOBACCO USE ADVICE [facility] Mar 27, 2020 07:30 AM VA-TOBACCO USE MASTER GLAZIER NO [facility] Mar 27, 2020 07:30 AM VA-TOBACCO USE MED NO [facility] Mar 27, 2020 07:30 AM VA-TOBACCO USER EVERY DAY [facility] Feb 06, 2019 05:16 PM VA-TOBACCO DOESNT USE WI 30 MIN WAKEUP [facility] Feb 06, 2019 05:16 PM VA-TOBACCO USE > 15 LESS THAN 30 YEARS [facility] Feb 06, 2019 05:16 PM VA-TOBACCO USE ADVICE [facility] Feb 06, 2019 05:16 PM VA-TOBACCO USE MASTER GLAZIER NO [facility] Feb 06, 2019 05:16 PM VA-TOBACCO USE MED NO [facility] Feb 06, 2019 05:16 PM VA-TOBACCO USER SOME DAYS [facility] Oct 29, 2010 07:46 AM CURRENT NON-TOBACCO USER [facility] Advance Directives: All historical and current No [...] issues he is having. Patient brought to post office manager. Patient is very nervous about speaking to anyone for fear it will get back to his work place. 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 He is "minor marriage" and has 6 children. 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 Reassured Vet that everything that is in his medical chart is confidential, explained HIPPA law. Let him know that only medical staff involved in his care could share info about him. Other than that, OR will not release any information to anyone [...] in mental issues. Patient OK with this investigative writer reporting the above to his PCP. [...] /zulema/ SHALINI ROBISON 06/18/2020 17:29 /zulema/ AMADEO SANONO POWER TONG OPERATOR 06/19/2020 ADDENDUM STATUS: COMPLETED Upon presentation to [facility] yesterday afternoon w/ walk-in complaints, vet also stated he needed an eye exam /zulema/ SHALINI ROBISON Signed: 06/19/2020 13:[address] [facility]
--- OUTSIDE RECORDS SUMMARY | 2021-02-11 22:00 | XMS REPORT | Encounter Summary ---
Author Author Department [facility] LUCINA williamson Organization Department of [facility] Address Unknown Phone Unavailable Care Team Providers Care Hematology Nurse Educator Name Role Phone RAHDA SHYANNE PCP Unavailable Insurance Providers: All historical [...] 20, 2020 01:00 PM AM[facility]ULATORY - NONE [facility] July 16, 2020 01:00 PM AMBULATORY - NONE [facility] July 17, 2020 01:00 PM [facility] [place] [facility] July 18, 2020 01:30 PM [facility] July 18, 2020 01:31 PM [facility] [place] [facility] [facility] Aug 08, 2020 02:00 PM AMBULATORY - NONE [facility] Sep 09, 2020 03:00 PM AMBULATORY - NONE [facility] ERIN ROSALES 15 Surgical Procedures: All associated [...] May 01, 2020 09:42 AM ADMINISTRATIVE NOTE: [facility] TITLE: EK-ADMINISTRATIVE STANDARD TITLE: ADMINISTRATIVE NOTE DATE OF NOTE: MAY 01, 2020@09:42 ENTRY DATE: MAY 01, 2020@09:43:14 AUTHOR: CHICHI NASCIMENTO COSIGNER: URGENCY: STATUS: COMPLETED SPOKE WITH PATIENT TODAY PATIENT DECLINED THE SENDY AND SENDY VACCINE /es/ AMARIS NASCIMENTO ADVANCED SLINGER SEQUINS Signed: 05/01/2020 09:43 AMARIS NASCIMENTO [facility]
--- OUTSIDE RECORDS SUMMARY | 2021-02-11 22:00 | XMS REPORT | Encounter Summary ---
Author [facility] Organization [facility] Address Unknown Phone Unavailable Care Team Providers Care Pedicurist Name Role Phone SHALINI MONTEJO PCP Unavailable [...] Comments: Unspecified Mood [Affective] Disorder AMADEO ESQUEDA [facility] Encounter Template Text not used by [place] Assessments - Encounter Diagnoses This section includes the primary and secondary diag noses documented for the Encounter. Date/Time Primary/Secondary Diagnosis Diagnosis Name Provider Source Jun 18, 2020 05:00 PM PRIMARY Unspecified mood [affectiv e] disorder AMADEO ESQUEDA [facility] Plan of Treatment: Future Appointments [...] 20, 2020 01:00 PM [facility]ONE [facility] July 16, 2020 01:00 PM AMBULATORY - NONE [facility] July 17, 2020 01:00 PM [facility] [place] [facility] [place] [facility] July 18, 2020 01:30 PM AMBULATORY - PSYCHIATRY [facility] July 18, 2020 01:31 PM [facility] [place] [facility] [facility] [facility] Aug 08, 2020 02:00 PM AMBULATORY - NONE [facility] Sep 09, 2020 03:00 PM AMBULATORY - NONE [facility], VIS[facility] 15 Surgical [...] W PT 30 M INUTES AJ- CLINICAL PAIN MANAGEMENT PHYSICIAN AMADEO ESQUEDA [facility] Surgical Notes There are no [...] 2020 07:30 AM VA-TOBACCO USER EVERY DAY [facility] Tobacco Use History This section includes a history of the smoking, or tobacco -related health factors, that were collected on or before the date of the Encoun ter. The data comes from the [place] facility where the Encounter took place. Date/Time Smoking Status/Tobacco Use Comment [facility] Mar 27, 2020 07:30 AM VA-TOBACCO USE [address] [facility] Mar 27, 2020 07:30 AM VA-TOBACCO USE ADVICE [facility] Mar 27, 2020 07:30 AM VA-TOBACCO USE NUTRITION ASSOCIATE NO [facility] Mar 27, 2020 07:30 AM VA-TOBACCO USE MED NO [facility] Mar 27, 2020 07:30 AM VA-TOBACCO USER EVERY DAY [facility] Feb 06, 2019 05:16 PM VA-TOBACCO DOESNT USE WI 30 MIN WAKEUP [facility] Feb 06, 2019 05:16 PM VA-TOBACCO USE > 15 LESS THAN 30 YEARS [facility] Feb 06, 2019 05:16 PM VA-TOBACCO USE ADVICE [facility] Feb 06, 2019 05:16 PM VA-TOBACCO USE NUTRITION ASSOCIATE NO [facility] Feb 06, 2019 05:16 PM VA-TOBACCO USE MED NO [facility] Feb 06, 2019 05:16 PM VA-TOBACCO USER SOME DAYS [facility] Oct 29, 2010 07:46 AM CURRENT NON-TOBACCO USER [facility] Advance Directives: All historical and current [...] He lives with his and children in [place] 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 Mr. Vasques is a walk in and [...] 1300 for further assessment. /zulema/ AMADEO ESQUEDA PAIN MANAGEMENT PHYSICIAN Signed: 06/18/2020 17:23 AMADEO ESQUEDA [facility]
--- OUTSIDE RECORDS SUMMARY | 2021-02-11 22:01 | XMS REPORT | Encounter Summary ---
Author Author Department [facility] LUCINA williamson Organization Department of [facility] Address Unknown Phone Unavailable Care Team Providers Care Tool Programmer Name Role Phone SHYANNE GARCIA PCP Unavailable Insurance Providers: All historical and current No Data Provided for This Section Selected Encounter This section includes the information on record at PA for the Encounter. Date/Time Encounter Type Encounter Description Reason Provider Source Mar 27, 2020 12:00 AM Outpatient Encounter EVENT (HISTORICAL) IHE Encounter Template Text not used by [place] Assessments - Encounter Diagnoses No Data Provided [...] 20, 2020 01:00 PM AM[facility]ORY [facility] NONE [facility] July 16, 2020 01:00 PM AMBULATORY - NONE [facility] July 17, 2020 01:00 PM [facility] [place] [facility] July 18, 2020 01:30 PM AMBULATORY - PS[facility]CHIATRY [facility] July 18, 2020 01:31 PM [facility] Aug 08, 2020 02:00 PM AMBULATORY - NONE [facility] Sep 09, 2020 03:00 PM AMBULATORY - NONE [facility], [facility] 15 Surgical Procedures: All associated to the encounter No Data Provided for This Section Lab Results: +/- 30 days of the encounter This section includes the Chemistry and Hematology Lab R esults on record with PA for the patient. Radiology Reports and Pathology Report s are provided separately, in subsequent sections. Lab Results This section contains the Chemistry/Hematology Results zenobia t were resulted 30 days before or 30 days after the date of the Encounter. Date/Time Source Result Type Result - Unit Interpretation Reference Range Comment Mar 06, 2020 11:35 AM [facility] LIPID PROFILE(HDL,TRI G,CHOL,LDL) Specimen Type: PLASMA No comment entered. Ordering Provider: SHYANNE GARCIA Report Released Date/Time: May 22, 2019 07:32 AM Reporting Lab: [facility] [place] [facility] [address] [facility] [id number] Performing Lab: [facility] [place] [facility] [address] [facility] [address] CHOLESTEROL 138 mg/dL 0-200 TRIGS 66 mg/dL 0-150 HDL-CHOLESTEROL 45 mg/dL > 40 LDL (CALC) 80 mg/dL 0-99 Mar 06, 2020 11:35 AM [facility] CBC & DIFF Speci men Type: BLOOD No comment entered. Ordering Provider: SHYANNE GARCIA Report Released Date/Time: May 22, 2019 07:32 AM Reporting Lab: [facility] [place] [facility] [address] [facility] [address] Performing Lab: [facility] [place] [facility] [address] [facility] [address] WBC 7.78 K/cmm 3.60-11.20 RBC 5.73 M/ul [...] 0.3 % Mar 06, 2020 11:35 AM [facility] COMPREHENSIVE METABOL IC PANEL Specimen Type: PLASMA No comment entered. Ordering Provider: SHYANNE GARCIA Report Released Date/Time: May 22, 2019 07:32 AM Reporting Lab: [facility] [employer] [facility] [address] [facility] [address] Performing Lab: [facility] [address] [facility] [address] *CREATININE 0.89 mg/dL 0.70-1.30 UREA NITROGEN mg/dL [...] EGFR 99.1 Mar 06, 2020 11:35 AM [facility] TSH Speci men Type: SERUM No comment entered. Ordering Provider: SHYANNE GARCIA Report Released Date/Time: May 22, 2019 07:32 AM Reporting Lab: [facility] [address] [facility] [address] Performing Lab: [facility] [address] [facility] [address] TSH 1.499 uIU/mL 0.47-5.00 Mar 06, 2020 11:35 AM [facility] PROSTATIC SPECIFIC AN TIGEN(TOTAL) Specimen Type: SERUM No comment entered. Ordering Provider: SHYANNE GARCIA Report Released Date/Time: May 22, 2019 07:32 AM Reporting Lab: [facility] [place] [facility] [address] [facility] [address] Performing Lab: [facility] [address] [facility] [address] PROSTATIC SPECIFIC ANTIGEN(TOTAL) 0.26 ng/mL 0.00-4.00 Mar 06, 2020 11:35 AM [facility] URINALYSIS Speci men Type: URINE No comment entered. Ordering Provider: SHYANNE GARCIA Report Released Date/Time: May 22, 2019 07:32 AM Reporting Lab: [facility] [place] [facility] [address] [facility] [address] Performing Lab: [facility] [address] [facility] [address] URINE COLOR Yellow SPECIFIC GRAVITY 1.018 1.005-1.030 [...]
--- OUTSIDE RECORDS SUMMARY | 2021-02-11 22:01 | XMS REPORT | Encounter Summary ---
Author Author [facility] LUCINA williamson Organization [facility] Address Unknown Phone Unavailable Care Team Providers Care Technology Methodology Consultant Name Role Phone SHYANNE GARCIA PCP Unavailable Insurance Providers: All historical and current No Data Provided for This Section Selected Encounter This section includes the information on record at [place] for the Encounter. Date/Time Encounter Type Encounter Description Reason Provider Source Mar 27, 2020 07:30 AM OFFICE O/P EST MOD 30-39 MIN PRIMARY CARE/ MEDICINE ICD-10-CM G43.909 Migraine, unsp, not intractable, without status migrainosus with Provider Comments: Headache disorder ([facility] [id number]) SHYANNE GARCIA Kaylen Encounter Template Text not used by [place] Assessments - Encounter Diagnoses This section includes the primary and secondary diag noses documented for the Encounter. Date/Time Primary/Secondary Diagnosis Diagnosis Name Provider Source Mar 27, 2020 08:53 AM PRIMARY Migraine, unsp, no t intractable, without status migrainosus SHYANNE GARCIA [facility] Mar 27, 2020 08:53 AM SECONDARY Overactive bladder SHYANNE GARCIA [facility] Mar 27, 2020 08:53 AM SECONDARY Pain in left ankle and cleo nts of left foot SHYANNE GARCIA [facility] Mar 27, 2020 08:53 AM SECONDARY [facility] of Treatment: Future Appointments (+ 6 months) and Future Tests (+/- 45 day s) The Plan of Treatment section includes future care activities for the patient fr om all [place] treatment facilities. This section includes future appointments and fu ture orders which are active, pending or scheduled. Future Appointments This section includes appointments that were scheduled t o occur 6 months from the date of the Encounter, up to a maximum of 20 appointme nts. The data comes from all [place] treatment facilities. Appointment Date/Time Appointment Type Appointment Facili ty Name Jun 20, 2020 01:00 PM AMBULATORY - NONE [facility] July 16, 2020 01:00 PM AMBULATORY - NONE [facility] July 17, 2020 01:00 PM AMBULATORY - PS[facility]ATRY [facility] July 18, 2020 01:30 PM AMBULATORY - PSYCHIATRY [facility] July 18, 2020 01:31 PM [facility] Aug 08, 2020 02:00 PM AMBULATORY - NONE [facility] Sep 09, 2020 03:00 PM AMBULATORY - NONE [facility], VISN 15 Surgical Procedures: All associated to the encounter No Data Provided for This Section Lab Results: +/- 30 days of the encounter This section includes the Chemistry and Hematology Lab R esults on record with [place] for the patient. Radiology Reports and Pathology Report s are provided separately, in subsequent sections. Lab Results This section contains the Chemistry/Hematology Results zenobia t were resulted 30 days before or 30 days after the date of the Encounter. Date/Time Source Result Type Result - Unit Interpretation Reference Range Comment Mar 06, 2020 11:35 AM [facility] LIPID PROFILE(HDL,TRI G,CHOL,LDL) Specimen Type: PLASMA No comment entered. Ordering Provider: SHYANNE GARCIA Report Released Date/Time: May 22, 2019 07:32 AM Reporting Lab: [facility] [address] [facility] [address] Performing Lab: [facility] [address] [facility] [address] CHOLESTEROL 138 mg/dL 0-200 TRIGS 66 mg/dL 0-150 HDL-CHOLESTEROL 45 mg/dL > 40 LDL (CALC) 80 mg/dL 0-99 Mar 06, 2020 11:35 AM [facility] CBC & DIFF Speci men Type: BLOOD No comment entered. Ordering Provider: SHYANNE GARCIA Report Released Date/Time: May 22, 2019 07:32 AM Reporting Lab: [facility] [address] [facility] [address] Performing Lab: [facility] [address] [facility] [address] WBC 7.78 K/cmm 3.60-11.20 RBC 5.73 M/ul [...] 0.3 % Mar 06, 2020 11:35 AM [facility] COMPREHENSIVE METABOL IC PANEL Specimen Type: PLASMA No comment entered. Ordering Provider: SHYANNE GARCIA Report Released Date/Time: May 22, 2019 07:32 AM Reporting Lab: [facility] [address] [facility] [address] Performing Lab: [facility] [address] [facility] [address] *CREATININE 0.89 mg/dL 0.70-1.30 UREA NITROGEN mg/dL [...] EGFR 99.1 Mar 06, 2020 11:35 AM [facility] TSH Speci men Type: SERUM No comment entered. Ordering Provider: SHYANNE GARCIA Report Released Date/Time: May 22, 2019 07:32 AM Reporting Lab: [facility] [address] [facility] [address] Performing Lab: [facility] [address] [facility] [address] TSH 1.499 uIU/mL 0.47-5.00 Mar 06, 2020 11:35 AM [facility] PROSTATIC SPECIFIC AN TIGEN(TOTAL) Specimen Type: SERUM No comment entered. Ordering Provider: SHYANNE GARCIA Report Released Date/Time: May 22, 2019 07:32 AM Reporting Lab: [facility] [address] [facility] [address] Performing Lab: [facility] [address] [facility] [address] PROSTATIC SPECIFIC ANTIGEN(TOTAL) 0.26 ng/mL 0.00-4.00 Mar 06, 2020 11:35 AM [facility] URINALYSIS Speci men Type: URINE No comment entered. Ordering Provider: SHYANNE GARCIA Report Released Date/Time: May 22, 2019 07:32 AM Reporting Lab: [facility] [address] [facility] [address] Performing Lab: [facility] [address] [facility] [address] URINE COLOR Yellow SPECIFIC GRAVITY 1.018 1.005-1.030 [...] 99 % 75 in 176.1 lb 22 [facility] Mar 27, 2020 07:40 AM 0 [facility] Immunizations: All administered on the encounter date No Data Provided for This Section Social History: Smoking Status (Most current) and Tobacco Use (All prior to enco unter date) This section includes the most current, and the historical, smoking and tobacco- related health factors from the [place] facility where the Encounter took place. Current Smoking Status This section includes the most current smoking, or tobacco -related health factor, from the [place] facility where the Encounter took place. Date/Time Current Smoking Status Comment Facility Mar 27, 2020 07:30 AM VA-TOBACCO USER EVERY DAY [facility] Tobacco Use History This section includes a history of the smoking, or tobacco -related health factors, that were collected on or before the date of the Encoun ter. The data comes from the [place] facility where the Encounter took place. Date/Time Smoking Status/Tobacco Use Comment [facility] Mar 27, 2020 07:30 AM VA-TOBACCO USE 5 TO [address] [facility] Mar 27, 2020 07:30 AM VA-TOBACCO USE ADVICE [facility] Mar 27, 2020 07:30 AM VA-TOBACCO USE RISK SPECIALIST NO [facility] Mar 27, 2020 07:30 AM VA-TOBACCO USE MED NO [facility] Mar 27, 2020 07:30 AM VA-TOBACCO USER EVERY DAY [facility] Feb 06, 2019 05:16 PM VA-TOBACCO DOESNT USE WI 30 MIN [facility] Feb 06, 2019 05:16 PM VA-TOBACCO USE > 15 LESS THAN 30 YEARS [facility] Feb 06, 2019 05:16 PM VA-TOBACCO USE ADVICE [facility] Feb 06, 2019 05:16 PM VA-TOBACCO USE RISK SPECIALIST NO [facility] Feb 06, 2019 05:16 PM VA-TOBACCO USE MED NO [facility] Feb 06, 2019 05:16 PM VA-TOBACCO USER SOME DAYS [facility] Oct 29, 2010 07:46 AM CURRENT NON-TOBACCO USER [facility] Advance Directives: All historical and current [...] 07:37 AM NURSING OUTPATIENT NOTE: [facility] STAND[facility] TITLE: NURSING OUTPATIENT NOTE DATE OF NOTE: MAR 27, 2020@07:37 ENTRY DATE: MAR 27, 2020@07:37:55 AUTHOR: DULCE JAY COSIGNER: URGENCY: STATUS: [facility] Has ADDENDA Coronavirus Disease [...] preferred language for discussing health care is: Citizen Of [place] Today's learning assessment regarding patient's readiness to [...] Not worried about housing near future [facility] reports the following: Within the past 12 [...] prominence or wounding caused by a medical lab technician? No Moisture - Patient has difficulty controlling [...] dose of seasonal influenza vaccine. 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 Hobbies: plays w/ kids, remodeling home Exercise: walks daily, up to 4 miles. Runs Diet: regular Monitor: none Tattoos: 1 Piercings: earlobes x1 bilat Eye exam: 12/31 Pneumovax: 03/20/19 Tdap: 03/16/18 Social: , 6 children. Lives with and 5 kids (1 is a step). 1 daughter lives with her mother. 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 Family Hx: Mother: living, [...] to protect and improve your health and [place] has the resources to support you. - [...] behavioral changes to help you quit. - [place] has a number of behavioral counseling options to help you with quitting, including: * Provide information about the facility smoking or tobacco use treatment options or clinics * [place]'s national quitline, 7-882-SLWB-VET, with counseling available Tuesday-Tuesday The patient was [...] have been communicated to the . [facility] confirms understanding of those requirements and indicates the following VVC needs: Patient does not have a completed VVC Encounter/Visit within the last two years and desires to complete the VVC set-up process. has virtual equipment WITH ACTIVE EMAIL The Provider and [facility] agree to the use of Telehealth and [facility] confirms they have their own smart device (smart phone, tablet, laptop or computer) with a camera AND audio AND they have a current active email address: CURRENT EMAIL ADDRESS: [email or web address] has completed VVC appointments within the last two years but would like to have a new test call. * should call the Office of [facility]) at [phone] Option 1 for test call. * informed a [place] staff member will call to follow-up. 'S RIGHT TO DECLINE STATEMENT understands they have the right to decline the use of Telehealth Technology at any time without adverse affects on their continued access to healthcare. Suicide Screen: C-SSRS Screening Dillon-Suicide Severity Rating Scale (C-SSRS Screener) 1. Over [...] Continue oxybutynin 10mg SA leonarda y. Next [facility] Urology w/ Dr Cruz in April. [facility] Appointment Date: 01/03/20@1430, YASMINE CRUZ MD, [facility] [id number], [id number], 05/22/19-07/01/20. 05/02/20 testosterone 172 L. Vet states [...] RESULTS FAXED TO DR. Kaylen CHANG AT [phone] THIS DATE FOR CHART INFORMATION TOGETHER WITH FAXED REQUEST FOR CHART NOTES FROM THE 'S CONSULT VISIT. CONFIRMATION OF FAX COMPLETION REC'D BY THIS WORKER AT 8;37. /zulema/ SOHAN VILLA Signed: 03/27/2020 08:46 SHYANNE GARCIA [facility]
--- OUTSIDE RECORDS SUMMARY | 2021-02-11 22:05 | XMS REPORT | Encounter Summary ---
Author [facility] Address Unknown Phone Unavailable Care Team Providers Care Primer Expeditor And Drier Name Role Phone RADHASHYANNE PCP Unavailable Insurance Providers: All historical and current No Data Provided for This Section Selected Encounter This section includes the information on record at [place] for the Encounter. Date/Time Encounter Type Encounter Description Reason Provider Source Feb 10, 2021 02:10 PM Outpatient Encounter COMMUNITY CARE CONSULT APRIL VELAZQUEZ IHKaylen Encounter Template Text not used by [place] Assessments - Encounter Diagnoses No Data Provided [...] 05, 2021 07:30 AM AMBULATORY - MEDICINE [facility] Mar 05, 2021 08:00 AM AMBULATORY - MEDICINE [facility] Active, Pending, and Scheduled Orders This [...] the Encounter. The data comes from all [place] treatment facilities. Test Date/Time Test Type Test Details Facility Name Mar 05, 2021 12:00 AM Laboratory - Chemistry Order LIPID PROFILE(HDL,TRIG,CHOL,LDL) GREEN TOP TUBE PLASMA [facility] Mar 05, 2021 12:00 AM Laboratory - Chemistry Order COMPREHEN SIVE METABOLIC PANEL GREEN TOP TUBE PLASMA [facility] Mar 05, 2021 12:00 AM Laboratory - Chemistry Order CBC & DIF F 5 ML LAVENDER TOP BLOOD [facility] Mar 05, 2021 12:00 AM Laboratory - Chemistry Order TSH SST GEL S AKILA [facility] Mar 05, 2021 12:00 AM Laboratory - Chemistry Order PROSTATIC SPECIFIC ANTIGEN(TOTAL) SST GEL SERUM [facility] Mar 05, 2021 12:00 AM Laboratory - Chemistry Order URINALYSI S URIN,RAND URINE [facility] Surgical Procedures: All associated to the encounter [...] Encounter. Date/Time Encounter Note(s) Provider Source Feb 10, 2021 02:10 PM NONVA NOTE: LOCAL TITLE: COMMUNITY CARE-COORDINATION PLAN STANDARD TITLE: NONVA NOTE DATE OF NOTE: FEB 10, 2021@14:10 ENTRY DATE: FEB 10, 2021@14:10:19 AUTHOR: MARTÍN ROLLINS COSIGNER: URGENCY: STATUS: COMPLETED COMMUNITY CARE-COORDINATION PLAN Has ADDENDA self-presented to community emergency facility Emergency Notification Intake Date Presenting to the Facility: Jan [facility] Hospital Name: Hospital: [facility] Address: City: [place] State: [place] Zip Code: Phone : Chief complaint: MIGRAINE Primary Diagnosis: Patient Admitted? No Community Facility Point of Contact: Name: COTY TINAJERO ##################################################### Notification ID: [id number] Status: POM Review Auth #: NOT AVAILABLE AT THIS TIME PROVIDER/PATIENT WILL NEED TO CONTACT POM UNIT FOR STATUS OR QUESTIONS ###################################################### MED RECS REQST FAXED TO [facility] PCP & PC RN notified via secure email /es/ MARTÍN ROLLINS OCC Advanced Medical Support Asst Signed: 02/10/2021 14:12 02/11/2021 ADDENDUM STATUS: COMPLETED ##################################################### Notification ID: [id number] Status: Closed - Approved for 1703 Auth #: [id number] ###################################################### /es/ MARTÍN ROLLINS OCC Advanced Medical Support Asst Signed: 02/11/2021 12:[address] [facility]
[2021-02-11] MEDS ORDERED: diphenhydrAMINE 50 MG/ML INJ (BENADRYL) IVP STA ×2 (22:16→23:12)
[2021-02-11] MEDS ORDERED: NS IV 1000 ML 1,000 ML IV STA (22:16)
[2021-02-11] MEDS ORDERED: KETOROLAC 30 MG/ML VIAL IVP STA (22:16)
[2021-02-11] MEDS ORDERED: METOCLOPRAMIDE INJ 10 MG/2 ML (REGLAN) IVP STA (22:16)
--- NOTE | 2021-02-11 22:16 | ED Headache ---
General Chief Complaint: Head/Cervical Problems Stated Complaint: MIGRAINE Nursing Triage Note: PT HAS HX OF MIGRAINES BUT THEY HAVE BEEN WORSE THE LAST TWO WEEKS. HE HAS NOT HAD ANY RELIEF FROM THE CURRENT MIGRAINE HE HAS HAD FOR 10-12 DAYS. PT AMBULATORY TO ROOM, TALKING W/O DIFFICULTY, VSS. Source: patient, old records, spouse History of Present Illness Date Seen by Provider: Feb 11, 2021 Time Seen by Provider: 21:56 Initial Comments 31-year-old male presenting with recurrent migraine headache. He states that he has had cluster migraines for at least the last 10 to 12 days. He has been taking sumatriptan and Benadryl but still having breakthrough headaches. He was seen here on Tuesday the and received a cocktail of migraine headache medications. After getting the Toradol, Benadryl, Reglan IM medicines he was able to rest and had improved symptoms for little over 24 to 36 hours. Then his symptoms came back Tuesday night and throughout Tuesday. He was having severe headache and attack this evening just prior to arriving in the emergency department. He gets throbbing sensation in the forehead anterior scalp as well as his jaw clenches on the left side. He denies any fever, chills, neck pain, recent head injury. He has been under extra stress recently. [facility] and the [facility] they could get him in to be seen was March 05. Severity/Quality: throbbing Location: frontal, temporal Prior Headaches/Recent Trauma: frequent headaches, chronic headaches Associated Symptoms: No confusion; fatigue, facial pain (left side); No fever/chills, No flushing, No loss of consciousness, No nausea/vomiting, No nasal congestion, No nasal drainage, No numbness in legs/feet, No rash, No seizures, No sinus infection, No stiff neck, No vision changes, No weakness Allergies and Home Medications Allergies Coded Allergies: amoxicillin (Verified Allergy, Unknown, 02/09/21) Patient Home Medication List Home Medication List Reviewed: Yes Review of Systems Review of Systems Constitutional: No chills, No fever Eyes: Denies Blurred Vision, Denies Photophobia, Denies Vision Changes Ears, Nose, Mouth, Throat: no symptoms reported Respiratory: no symptoms reported Cardiovascular: no symptoms reported Gastrointestinal: no symptoms reported Genitourinary: no symptoms reported Musculoskeletal: no symptoms reported Skin: No rash Psychiatric/Neurological: See HPI Past Vlapxnp-Qczvad-Etmrhg Hx Patient Social History Tobacco Use?: Yes Tobacco type used: Cigars Smoking Status: Light Tobacco Smoker Use of E-Cig and/or Vaping dev: No Substance use?: No Alcohol Use?: No Pt feels they are or have been: No Past Medical History Surgery/Hospitalization HX: Cluster Headaches Physical Exam Vital Signs Vital Signs - First Documented 02/11/21 21:55 Temp 36.7 Pulse 75 Resp 12 B/P (MAP) 140/89 (106) Pulse Ox 98 O2 Delivery Room Air Capillary Refill : Less Than 3 Seconds Height, Weight, BMI Height: '" Weight: lbs. oz. kg; 22.00 BMI Method: General Appearance: WD/WN, no apparent distress HEENT: PERRL/EOMI, normal ENT inspection, pharynx normal, other (tender to palpation over left frontal sinus area and frontal scalp) Neck: non-tender, full range of motion, supple, normal inspection Cardiovascular: normal peripheral pulses, regular rate, rhythm Respiratory: chest non-tender, lungs clear, normal breath sounds, no respiratory distress, no accessory muscle use Gastrointestinal: normal bowel sounds, non tender, soft, no pulsatile mass Extremities: normal range of motion, non-tender, normal capillary refill Psychiatric: alert, oriented x 3 Crainal Nerves: normal hearing, normal speech, PERRL Coordination/Gait: normal gait Motor/Sensory: no motor deficit, no sensory deficit Skin: normal color, warm/dry Progress/Results/Core Measures Results/Orders Lab Results Laboratory Tests Test 02/11/21 22:30 Range/Units White Blood Count 7.7 4.3-11.0 10^3/uL Red Blood Count 5.38 4.30-5.52 10^6/uL Hemoglobin 16.6 13.3-17.7 g/dL Hematocrit 48 40-54 % Mean Corpuscular Volume 88 80-99 fL Mean Corpuscular Hemoglobin 31 25-34 pg Mean Corpuscular Hemoglobin Concent 35 32-36 g/dL Red Cell Distribution Width 13.2 10.0-14.5 % Platelet Count 295 130-400 10^3/uL Mean Platelet Volume 10.0 9.0-12.2 fL Immature Granulocyte % (Auto) 0 % Neutrophils (%) (Auto) 53 42-75 % Lymphocytes (%) (Auto) 34 12-44 % Monocytes (%) (Auto) 10 0-12 % Eosinophils (%) (Auto) 3 0-10 % Basophils (%) (Auto) 1 0-10 % Neutrophils # (Auto) 4.0 1.8-7.8 X 10^3 Lymphocytes # (Auto) 2.6 1.0-4.0 X 10^3 Monocytes # (Auto) 0.8 0.0-1.0 X 10^3 Eosinophils # (Auto) 0.2 0.0-0.3 10^3/uL Basophils # (Auto) 0.0 0.0-0.1 10^3/uL Immature Granulocyte # (Auto) 0.0 0.0-0.1 10^3/uL Sodium Level 141 135-145 MMOL/L Potassium Level 3.7 3.6-5.0 MMOL/L Chloride Level 103 98-107 MMOL/L Carbon Dioxide Level 27 21-32 MMOL/L Anion Gap 11 5-14 MMOL/L Blood Urea Nitrogen 12 7-18 MG/DL Creatinine 0.89 0.60-1.30 MG/DL Estimat Glomerular Filtration Rate 98 BUN/Creatinine Ratio 13 Glucose Level 98 70-105 MG/DL Calcium Level 9.5 8.5-10.1 MG/DL Corrected Calcium 8.5-10.1 MG/DL Total Bilirubin 0.3 0.1-1.0 MG/DL Aspartate Amino Transf (AST/SGOT) 17 5-34 U/L Alanine Aminotransferase (ALT/SGPT) 18 0-55 U/L Alkaline Phosphatase 74 40-136 U/L Total Protein 7.9 6.4-8.2 GM/DL Albumin 5.0 H 3.2-4.5 GM/DL My Orders Orders - NARCISA THOMAS MD Comprehensive Metabolic Panel (02/11/21 22:16) Ed Iv/Invasive Line Start (02/11/21 22:16) Cbc With Automated Diff (02/11/21 22:16) Ct Head Wo (02/11/21 22:16) O2 (02/11/21 22:16) Ns Iv 1000 Ml (Sodium Chloride 0.9%) (02/11/21 22:16) Ketorolac Injection (Toradol Injection) (02/11/21 22:16) Diphenhydramine Injection (Benadryl Inje (02/11/21 22:16) Metoclopramide Injection (Reglan Injecti (02/11/21 22:16) Diphenhydramine Injection (Benadryl Inje (02/11/21 23:12) Vital Signs/I&O 02/11/21 02/11/21 21:55 23:36 Temp 36.7 Pulse 75 68 Resp 12 12 B/P (MAP) 140/89 (106) 126/89 Pulse Ox 98 99 O2 Delivery Room Air Room Air 2 Blood Pressure Mean: 106 Progress Progress Note #1: Progress Note Patient and his spouse are concerned there may be something else causing his headaches since they are lasting longer and seemed to be more severe than usual for him. Will order a CT scan as well as labs to see if there is any acute significant normality. Repeat the migraine cocktail but this time will administer through IV in addition to IV fluid for hydration. Progress Note #2: Progress Note Patient reports significant improvement in his migraine after treatment. CT scan of his head does not show any acute significant abnormality. His CBC is also stable without acute significant abnormality. Chemistry also without acute significant abnormality to account for his symptoms. We will repeat a dose of Benadryl and discharged home. Encouraged to continue on his regular medicines and follow-up with [facility] Diagon[facility] Imaging: CT Plain Films/CT/US/NM/MRI: head Comments [facility] [place] NAME: LUCINA BEGUM [facility] REC#: [id number] PT STATUS: REG ER : 1990 PHYSICIAN: NARCISA THOMAS MD ADMIT DATE: 02/11/21/ER FS Draft Date of Exam:02/11/21 CT HEAD WO PROCEDURE: CT head without contrast. TECHNIQUE: Multiple contiguous axial images were obtained through the brain without the use of intravenous contrast. Auto Exposure Controls were utilized during the CT exam to meet ALARA standards for radiation dose reduction. INDICATION: Migraine headache. FINDINGS: The ventricles and sulci are within normal limits. There is no hydrocephalus or cerebral edema. There is no midline shift or mass effect. There is no intracranial mass, hemorrhage, or extra-axial fluid collection. The visualized paranasal sinuses and mastoid air cells are clear. There are no regional areas of decreased attenuation appreciated to suggest an acute CVA. IMPRESSION: No acute intracranial abnormality. Dictated on workstation # [id number] Dict: 02/11/212250 Trans: 02/11/212251 [id number] Interpreted by: TREVOR TREVIZO MD Electronically signed by: Reviewed: Reviewed by Me Departure Impression Primary Impression: Migraine-cluster headache syndrome Disposition: HOME, SELF-CARE Condition: Improved Departure-Patient Inst. Decision time for Depature: 23:19 Referrals: SHYANNE GARCIA (PCP/Family) Primary Care Physician Patient Instructions: Migraines (DC), Migraines in Adults Add. Discharge Instructions: Stay well hydrated and get plenty of rest. Continue on your regular medicines. Follow up with [place] clinic and you may need to see Neurology for specialized Migra ine care to determine best treatment for your continued symptoms All discharge instructions reviewed with patient and/or family. Voiced understanding. NARCISA THOMAS MD Feb 11, 2021 22:16
--- NOTE | 2021-02-11 22:52 | Diagnostic Imaging Report ---
PROCEDURE: CT head without contrast. TECHNIQUE: Multiple contiguous axial images were obtained through the brain without the use of intravenous contrast. Auto Exposure Controls were utilized during the CT exam to meet ALARA standards for radiation dose reduction. INDICATION: Migraine headache. FINDINGS: The ventricles and sulci are within normal limits. There is no hydrocephalus or cerebral edema. There is no midline shift or mass effect. There is no intracranial mass, hemorrhage, or extra-axial fluid collection. The visualized paranasal sinuses and mastoid air cells are clear. There are no regional areas of decreased attenuation appreciated to suggest an acute CVA. IMPRESSION: No acute intracranial abnormality. Dictated by: Dictated on workstation # [id number]
[2021-02-11 23:02] LABS: HEMATOCRIT 48 % (40-54); HEMOGLOBIN 16.6 g/dL (13.3-17.7); MEAN CORPUSCULAR HEMOGLOBIN 31 pg (25-34); MEAN CORPUSCULAR VOLUME 88 fL (80-99); WHITE BLOOD COUNT 7.7 10^3/uL (4.3-11.0)
[2021-02-11 23:03] LABS: MEAN CORPUSCULAR HGB CONC 35 g/dL (32-36); PLATELET COUNT 295 10^3/uL (130-400)
[2021-02-11 23:04] LABS: EOSINOPHILS # (AUTO) 0.2 10^3/uL (0.0-0.3); LYMPHOCYTES # (AUTO) 2.6 X 10^3 (1.0-4.0); MONOCYTES # (AUTO) 0.8 X 10^3 (0.0-1.0)
[2021-02-11 23:05] LABS: BASOPHILS % (AUTO) 1 % (0-10); EOSINOPHILS % (AUTO) 3 % (0-10); LYMPHOCYTES % (AUTO) 34 % (12-44); MONOCYTES % (AUTO) 10 % (0-12); NEUTROPHILS % (AUTO) 53 % (42-75)
[2021-02-11 23:17] LABS: ALANINE AMINOTRANSFERASE 18 U/L (0-55); ALKALINE PHOSPHATASE 74 U/L (40-136); BILIRUBIN,TOTAL 0.3 MG/DL (0.1-1.0); BUN/CREATININE RATIO 13; CALCIUM 9.5 MG/DL (8.5-10.1); CARBON DIOXIDE 27 MMOL/L (21-32); CHLORIDE 103 MMOL/L (98-107); CREATININE SERUM 0.89 MG/DL (0.60-1.30); GFR ESTIMATED 98; GLUCOSE 98 MG/DL (70-105); POTASSIUM 3.7 MMOL/L (3.6-5.0); SODIUM 141 MMOL/L (135-145); TOTAL PROTEIN 7.9 GM/DL (6.4-8.2)
[2021-02-11 23:36] VITALS: BP 126/89
== END 2021-02-11 23:30 | disposition home or self-care (01) ==
LOC: EDUNIT# 21:52 → ER FS 21:53
DX: G44.009 Cluster headache syndrome, unspecified, not intractable (principal); F17.290 Nicotine dependence, other tobacco product, uncomplicated
CPT/HCPCS: 36415; 70450; 80053; 85025

== ENCOUNTER 2021-02-17 03:57 | Emergency (ER) | payer OTHER ==
[~2021-02-17] VITALS: Ht 190 cm; Wt 81.8 kg
--- NOTE | 2021-02-17 04:05 | ED Headache ---
General Stated Complaint: MIGRAINE History of Present Illness Date Seen by Provider: Feb 17, 2021 Time Seen by Provider: 04:05 Initial Comments 31-year-old male presents with a headache. Patient reports that he has been having a "cluster migraine" for the last 16 days. Patient was seen in the ER on the and on the and at that time given Toradol Benadryl Reglan. He reports temporary relief but it returns. [facility] reports that he is having hard time getting to the clinic. Patient was advised that he would need to follow-up with you may follow-up with a neurologist on his previous visits. He reports that headache is on the left side of his head moved down to the side of his face and jaw. That he was diagnosed a few years back and takes sumatriptan at home but seems to not be working. Patient reports that the headache has been daily for the last 16 days. That he never had one last longer than 8 to 10 days. Patient had a negative work-up visit including labs and CT. Allergies and Home Medications Allergies Coded Allergies: amoxicillin (Verified Allergy, Unknown, 02/09/21) Patient Home Medication List Home Medication List Reviewed: Yes Methylprednisolone (Methylprednisolone Dose Pack) 4 Mg Tablet, 4 MG PO UD Prescribed by: MARIA D HOOD on 02/17/21 0513 Promethazine HCl (Promethazine Tablet) 25 Mg Tablet, 25 MG PO Q12H PRN for NAUSEA/VOMITING Prescribed by: MARIA D HOOD on 02/17/21 0513 Review of Systems Review of Systems Constitutional: No chills, No fever Eyes: No Symptoms Reported Ears, Nose, Mouth, Throat: denies throat pain Respiratory: No cough, No short of breath Cardiovascular: No chest pain, No palpitations Gastrointestinal: No abdominal pain, No nausea, No vomiting Skin: No rash Psychiatric/Neurological: See HPI, Headache Past Qzgqxrw-Pypuac-Skyxgv Hx Past Medical History Surgery/Hospitalization HX: Cluster Headaches Physical Exam Vital Signs Vital Signs - First Documented 02/17/21 04:07 Temp 36.4 Pulse 72 Resp 17 B/P (MAP) 136/98 (111) Pulse Ox 97 O2 Delivery Room Air Capillary Refill : Height, Weight, BMI Height: '" Weight: lbs. oz. kg; 22.00 BMI Method: General Appearance: mild distress HEENT: normal ENT inspection Neck: full range of motion, supple, normal inspection Cardiovascular: normal peripheral pulses, regular rate, rhythm Respiratory: chest non-tender, lungs clear, normal breath sounds Gastrointestinal: non tender, soft Extremities: normal range of motion, normal inspection, normal capillary refill Psychiatric: alert, oriented x 3 Crainal Nerves: PERRL Coordination/Gait: normal finger to nose, normal gait Motor/Sensory: no motor deficit, no sensory deficit Skin: normal color, warm/dry Progress/Results/Core Measures Results/Orders My Orders Orders - MARIA D HOOD DO Dexamethasone Injection (Decadron Inje (02/17/21 04:30) Metoclopramide Injection (Reglan Injecti (02/17/21 04:23) Diphenhydramine Injection (Benadryl Inje (02/17/21 04:23) Medications Given in ED Current Medications Medications Dose Ordered Sig/Ju Route Start Time Stop Time Status Last Admin Dose Admin Dexamethasone Sodium Phosphate 10 mg ONCE ONCE IM 02/17/21 04:30 02/17/21 04:31 DC 02/17/21 04:33 10 MG Vital Signs/I&O 02/17/21 04:07 Temp 36.4 Pulse 72 Resp 17 B/P (MAP) 136/98 (111) Pulse Ox 97 O2 Delivery Room Air Progress Progress Note : Progress Note Patient had improvement of symptoms following treatment. Discussed with him that he will need to follow-up with his primary care provider as soon as possible to look for other outpatient management options and possible medication change for both breakthrough and prophylactic medication. Patient was given de xamethasone and discharged with Medrol Dosepak. Discussed with him that cluster headache treatment and outpatient management is little different than migraine. It worries been diagnosed with cluster headaches they need to review the medications to optimize them. Patient was stable upon discharge. Departure Impression Primary Impression: Migraine-cluster headache syndrome Disposition: 01 HOME, SELF-CARE Condition: Stable Departure-Patient Inst. Referrals: SHYANNE GARCIA (PCP/Family) Primary Care Physician Patient Instructions: Cluster Headache (DC) Add. Discharge Instructions: drink plenty of fluids Follow-up with your primary care provider for further outpatient management and review of your medication for possible change if needed Scripts Promethazine HCl (Promethazine Tablet) 25 Mg Tablet 25 MG PO Q12H PRN for NAUSEA/VOMITING, #14 TAB 0 Refills Prov: MARIA D HOOD DO 02/17/21 Methylprednisolone (Methylprednisolone Dose Pack) 4 Mg Tablet 4 MG PO UD for 6 Days, #21 TAB FOLLOW DOSE PACK INSTRUCTIONS Prov: MARIA D HOOD DO 02/17/21 Work/School Note: Work Release Form Date Seen in the Emergency Department: D 2020 Return to Work: Feb 18, 2021 MARIA D HOOD Kasey DO Feb 17, 2021 04:05
[2021-02-17] MEDS ORDERED: diphenhydrAMINE 50 MG/ML INJ (BENADRYL) IM STA (04:23)
[2021-02-17] MEDS ORDERED: METOCLOPRAMIDE INJ 10 MG/2 ML (REGLAN) IM STA (04:23)
[2021-02-17] MEDS ORDERED: METH4TAB11 PO (05:13)
[2021-02-17] MEDS ORDERED: PROM25TA14 PO (05:13)
[2021-02-17 05:40] VITALS: BP 137/70
== END 2021-02-17 05:40 | disposition home or self-care (01) ==
LOC: EDUNIT# 03:57 → ER FS 03:59
DX: G44.009 Cluster headache syndrome, unspecified, not intractable (principal); G43.909 Migraine, unspecified, not intractable, without status migrainosus
CPT/HCPCS: 99284

== ENCOUNTER 2021-02-21 03:28 | Emergency (ER) | payer OTHER ==
[~2021-02-21 03:28] MED LIST: METH4TAB11 PO; PROM25TA14 PO
--- NOTE | 2021-02-21 04:08 | ED Headache ---
General Chief Complaint: Head/Cervical Problems Stated Complaint: MIGRAINE Nursing Triage Note: Pt complaining of a migraine. Pt states he has had a headache everyday for the past 3-4 weeks Source: patient Exam Limitations: no limitations History of Present Illness Date Seen by Provider: Feb 21, 2021 Time Seen by Provider: 03:35 Initial Comments 31-year-old male with past medical history of chronic headaches coming in due to severe, stabbing, left-sided headache. Started around 1 AM this morning. Is only on the left side, associated with runny nose, and left eye watering. Is always in the same area and is clustered around the same time per day. Happens around 1 AM lately that has been happening for over a week in a row. [facility] in the future, but it is too far in [facility] and she has tried everything. Is currently taking steroids which are not super helpful. No fever, neck stiffness, weakness, numbness, or any other concerns. Allergies and Home Medications Allergies Coded Allergies: amoxicillin (Verified Allergy, Unknown, 02/09/21) Patient Home Medication List Home Medication List Reviewed: Yes Methylprednisolone (Methylprednisolone Dose Pack) 4 Mg Tablet, 4 MG PO UD Prescribed by: MARIA D HOOD on 02/17/21 0513 Promethazine HCl (Promethazine Tablet) 25 Mg Tablet, 25 MG PO Q12H PRN for NAUSEA/VOMITING Prescribed by: MARIA D HOOD on 02/17/21 0513 Review of Systems Review of Systems Constitutional: No chills, No fever Eyes: Denies Blurred Vision Ears, Nose, Mouth, Throat: no symptoms reported Respiratory: no symptoms reported Cardiovascular: no symptoms reported Gastrointestinal: no symptoms reported Genitourinary: no symptoms reported Musculoskeletal: no symptoms reported Skin: no symptoms reported Psychiatric/Neurological: Headache All Other Systems Reviewed Negative Unless Noted: Yes Past Lessfvs-Gfqmte-Zckaht Hx Patient Social History Tobacco Use?: Yes Pt feels they are or have been: No Immunizations Up To Date First/Initial COVID19 Vaccinat: Pfizer 11/2020 Past Medical History Surgery/Hospitalization HX: Cluster Headaches Surgeries: No Physical Exam Vital Signs Vital Signs - First Documented 02/21/21 03:32 Pulse 88 Resp 20 B/P (MAP) 151/92 (111) Pulse Ox 98 O2 Delivery Room Air Capillary Refill : Less Than 3 Seconds Height, Weight, BMI Height: '" Weight: lbs. oz. kg; 22.00 BMI Method: General Appearance: WD/WN, mild distress HEENT: PERRL/EOMI, normal ENT inspection, TMs normal, pharynx normal Neck: non-tender, full range of motion, supple, normal inspection Cardiovascular: no edema, no murmur Respiratory: chest non-tender, lungs clear, no respiratory distress, no accessory muscle use Gastrointestinal: normal bowel sounds, non tender, soft; No distended, No guarding, No rebound Back: normal inspection, no CVA tenderness, no vertebral tenderness Extremities: normal range of motion, non-tender, no pedal edema, no calf tenderness Psychiatric: alert, oriented x 3 Crainal Nerves: normal hearing, normal speech, PERRL, other (Left eye with some conjunctival injection and tears) Coordination/Gait: normal finger to nose, normal gait Motor/Sensory: no motor deficit, no sensory deficit Skin: normal color, warm/dry Lymphatic: no adenopathy Progress/Results/Core Measures Results/Orders Vital Signs/I&O 02/21/21 03:32 Pulse 88 Resp 20 B/P (MAP) 151/92 (111) Pulse Ox 98 O2 Delivery Room Air Blood Pressure Mean: 111 Progress Progress Note : Progress Note 31-year-old male with above history coming in due to left-sided headache. ABCs were intact, vital stable, GCS 15, afebrile, and otherwise well-appearing on exam. No neuro deficits. Clinically this is consistent with a cluster headache given it is unilateral, severe, temporal, typically lasting 15 minutes to 3 hours if untreated. It is accompanied with nasal drainage and conjunctival injection. He is trying to get follow-up with a neurologist but this will be in the future. He was treated here with high flow oxygen which relieved all of his symptoms within a matter of 15 minutes without any other medications. He is currently on prednisone which does seem to help a little bit, but he still having a lot of frequency with his attacks. I will try to prescribe home oxygen so that he can have treatment at home. I reviewed his recent work-up including a negative CT head. I believe he is stable for discharge with outpatient follow-up. He was sent home with strict return precautions. Departure Impression Primary Impression: Cluster headache Qualified Codes: G44.019 - Episodic cluster headache, not intractable Disposition: 01 HOME, SELF-CARE Condition: Stable Departure-Patient Inst. Decision time for Depature: 04:05 Referrals: SHYANNE GARCIA (PCP/Family) Primary Care Physician Patient Instructions: Cluster Headache (DC) Add. Discharge Instructions: You can call the number I gave you if they do not contact you by Tuesday to try to get home oxygen. Also follow-up with the neurologist has been they want to try medication called Verapemil or something similar. SEBASTIAN KELLY MD Feb 21, 2021 04:08
[2021-02-21 04:24] VITALS: BP 151/92
--- OUTSIDE RECORDS SUMMARY | 2021-02-21 05:57 | XMS REPORT | Encounter Summary ---
Author Author Department [facility] LUCINA williamson Organization Department [facility] Address Unknown Phone Unavailable Care Team Providers Care Commercial Lending Relationship Manager Name Role Phone SHYANNE GARCIA PCP [...] 16, 2020 01:00 PM [facility]ORY [facility] NONE [facility] July 17, 2020 01:00 PM AM[facility]ULATORY - [facility]RY [facility] [place] [facility] July 18, 2020 01:30 PM AMBULATORY - PS[facility]IATRY [facility] July 18, 2020 01:31 PM [facility] Aug 08, 2020 02:00 PM AMBULATORY - NONE [facility] Sep 09, 2020 03:00 PM AMBULATORY - NONE [facility] T, VISN 15 Surgical Procedures: All [...] 2018 08:56 AM VA-TOBACCO USER SOME DAYS [facility] [place] [facility] Tobacco Use History This section includes a history of the smoking, or tobacco -related health factors, that were collected on or before the date of the Encoun ter. The data comes from the [place] facility where the Encounter took place. Date/Time Smoking Status/Tobacco Use Comment 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
--- OUTSIDE RECORDS SUMMARY | 2021-02-21 05:57 | XMS REPORT | Encounter Summary ---
Author Author Department [facility] LUCINA williamson Organization Department [facility] Address Unknown Phone Unavailable Care Team Providers Care Lever Operator Name Role Phone SHYANNE GARCIA PCP Unavailable Insurance Providers: All historical and current No Data Provided for This Section Selected Encounter This section includes the information on record at [place] for the Encounter. Date/Time Encounter Type Encounter Description Reason Provider Source Apr 29, 2020 11:58 AM Outpatient Encounter ADMIN PAT ACTIVTIES (MASNO NCT) IHE Encounter Template Text not used by [place] Assessments - Encounter Diagnoses No Data Provided [...] 20, 2020 01:00 PM AMBULATORY - NONE [facility] July 16, 2020 01:00 PM AMBULATORY - NONE [facility] July 17, 2020 01:00 PM AMBULATORY - [facility]RY [facility] [place] [facility] July 18, 2020 01:30 PM [facility] July 18, 2020 01:31 PM [facility] Aug 08, 2020 02:00 PM AMBULATORY - NONE [facility] Sep 09, 2020 03:00 PM AMBULATORY - NONE [facility] 15 Surgical Procedures: All [...] ROCIO KOHLI Signed: 04/29/2020 12:00 ROCIO KOHLI [facility] JAYME Guzman
--- OUTSIDE RECORDS SUMMARY | 2021-02-21 05:57 | XMS REPORT | Encounter Summary ---
Author Author Department [facility] LUCINA williamson Organization Department [facility] Address Unknown Phone Unavailable Care Team Providers Care Clay Shop Supervisor Name Role Phone MELVIN GARCIAA PCP Unavailable Insurance Providers: All historical and current No Data Provided for This Section Selected Encounter This section includes the information on record at [place] for the Encounter. Date/Time Encounter Type Encounter Description Reason Provider Source Jul 29, 2020 09:00 AM Outpatient Encounter ADMIN PAT ACTIVTIES (MASNO NCT) IHE Encounter Template Text not used by [place] Assessments - Encounter Diagnoses No Data Provided [...] [facility] [place] [facility] 15 Surgical Procedures: [...] 2018 08:56 AM VA-TOBACCO USER SOME DAYS [facility] [place] [facility] Tobacco Use History This section includes a history of the smoking, or tobacco -related health factors, that were collected on or before the date of the Encoun ter. The data comes from the [place] facility where the Encounter took place. 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 /zulema/ AMADEO [employer]QU[employer] DRIVER Signed: 07/29/2020 09:07 Receipt Acknowledged By: * AWAITING SIGNATURE * LEON DA SILVA * AWAITING SIGNATURE * FRANTZF,AMADEO MAURO [facility] [place] [facility]
--- OUTSIDE RECORDS SUMMARY | 2021-02-21 05:57 | XMS REPORT | Encounter Summary ---
[facility] Address Unknown Phone Unavailable Care Team Providers Care Decorator Hand Name Role Phone RADHA SHYANNE PCP Unavailable [...] Appointment Type Appointment Facili ty Name Feb 17, 2021 01:30 PM AMBULATORY - MEDICINE [facility] [place] Feb 26, 2021 08:00 AM AMBULATORY - MEDICINE [facility] Mar 05, 2021 07:30 AM AMBULATORY - MEDICINE [facility] Mar 05, 2021 08:00 AM AMBULATORY [facility] Surgical Procedures: All associated to the [...] OD Date of examination: September 17, 2020 [facility] Sent Out for Routine Eye Exam: Other: The [facility]'s Complaint was Refraction if Routine Exam Acuity if Other Right: -[id number] 20/20 Left: -0.7520/ Impression: 1. refractive error 2. pinguecula bilateral 3. 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 advised annual eye exams F/U needed: no further action requested See Scanned Document for details /zulema/ SIMON KNUTSON STAFF HARDWARE INSTALLATION COORDINATOR Signed: 10/17/2020 10:52 SIMON KNUTSON [facility] [place] [facility]
--- OUTSIDE RECORDS SUMMARY | 2021-02-21 05:57 | XMS REPORT | Encounter Summary ---
Author Author Department [facility] LUCINA williamson Organization Department [facility] Address Unknown Phone Unavailable Care Team Providers Care District Court Reporter Name Role Phone SHYANNE GARCIA PCP Unavailable Insurance Providers: All historical and current No Data Provided for This Section Selected Encounter This section includes the information on record at [place] for the Encounter. Date/Time Encounter Type Encounter Description Reason Provider Source July 16, 2020 01:45 PM Outpatient Encounter ADMIN PAT ACTIVTIES (MASNO NCT) IHE Encounter Template Text not used by [place] Assessments - Encounter Diagnoses No Data Provided for This Section Plan of Treatment: Future Appointments (+ 6 months) and Future Tests (+/- 45 day s) The Plan of Treatment section includes future care activities for the patient fr om all [place] treatment facilities. This section includes future appointments and fu ture orders which are active, pending or scheduled. Future Appointments This section includes appointments that were scheduled t o occur 6 months from the date of the Encounter, up to a maximum of 20 appointme nts. The data comes from all [place] treatment facilities. Appointment Date/Time Appointment Type Appointment Facili ty Name July 17, 2020 01:00 PM AMBULATORY - PSYCHIATRY [facility] [place] [facility] July 18, 2020 01:30 PM AM[facility]ORY - [facility] July 18, 2020 01:31 PM [facility] [place] [facility] [facility] [place] [facility] Aug 08, 2020 02:00 PM AMBULATORY - NONE [facility] Sep 09, 2020 03:00 PM AMBULATORY - NONE [facility] 15 Surgical [...] and tobacco- related health factors from the [place] facility where the Encounter took place. Current Smoking Status This section includes the most current smoking, or tobacco -related health factor, from the [place] facility where the Encounter took place. Date/Time Current Smoking Status Comment Facility Feb 15, 2018 08:56 AM VA-TOBACCO USER SOME DAYS [facility] [place] [facility] Tobacco Use History This section includes a history of the smoking, or tobacco -related health factors, that were collected on or before the date of the Encoun ter. The data comes from the [place] facility where the Encounter took place. Date/Time Smoking Status/Tobacco Use Comment [facility] it Feb 15, 2018 08:56 AM VA-TOBACCO USE 1 TO < 5 YEARS [facility] [place] [facility] Feb 15, 2018 08:56 AM VA-TOBACCO USE ADVICE [facility] [place] [facility] Feb 15, 2018 08:56 AM VA-TOBACCO USE MANAGEMENT LEAD NO [facility] [place] [facility] Feb 15, 2018 08:56 AM VA-TOBACCO USE MED NO [facility] [place] [facility] Feb 15, 2018 08:56 AM VA-TOBACCO USER SOME DAYS [facility] [place] [facility] Advance Directives: All [...] fail to show letter. /zulema/ AMADEO ESQUEDA BAGGAGE CHECKER Signed: 07/16/2020 13:48 Receipt Acknowledged By: * AWAITING SIGNATURE * REFF,JERRY ESQUEDA,AMADEO Parks [facility]
--- OUTSIDE RECORDS SUMMARY | 2021-02-21 05:57 | XMS REPORT | Encounter Summary ---
Author Author Department [facility] LUCINA williamson Organization Department [facility] Address Unknown Phone Unavailable Care Team Providers Care Office Manager Receptionist Name Role Phone SHYANNE GARCIA PCP Unavailable Insurance Providers: All historical and current No Data Provided for This Section Selected Encounter This section includes the information on record at [place] for the Encounter. Date/Time Encounter Type Encounter Description Reason Provider Source Mar 06, 2020 11:34 AM Outpatient Encounter ADMIN PAT ACTIVTIES (MASNO NCT) IHE Encounter Template Text not used by [place] Assessments - Encounter Diagnoses No Data Provided [...] 27, 2020 07:30 AM AMBULATORY - MEDICINE [facility] Jun 20, 2020 01:00 PM [facility]ORY [facility] NONE [facility] July 16, 2020 01:00 PM AMBULATORY - NONE [facility] July 17, 2020 01:00 PM AMBULATORY - [facility] [place] July 18, 2020 01:30 PM AMBULATORY - PSY[facility]IATRY [facility] July 18, 2020 01:31 PM AMBULATORY - [place] [facility] [place] [facility] Aug 08, 2020 02:00 PM AMBULATORY - NONE [facility] Surgical Procedures: All associated to the encounter No Data Provided for This Section Lab Results: +/- 30 days of the encounter This section includes the Chemistry and Hematology Lab R esults on record with [place] for the patient. Radiology Reports and Pathology Report s are provided separately, in subsequent sections. Lab Results This section contains the Chemistry/Hematology Results zenobia t were resulted 30 days before or 30 days after the date of the Encounter. Date/Time Source Result Type Result - Unit Interpretation Reference Range Comment Mar 06, 2020 11:35 AM [facility] LIPID PROFILE(HDL,TRI G,CHOL,LDL) Specimen Type: PLASMA No comment entered. Ordering Provider: SHYANNE GARCIA Report Released Date/Time: May 22, 2019 07:32 AM Reporting Lab: [facility] [address] [facility] [address] Performing Lab: [facility] [place] [address] [facility] [address] CHOLESTEROL 138 mg/dL 0-200 TRIGS 66 mg/dL 0-150 HDL-CHOLESTEROL 45 mg/dL > 40 LDL (CALC) 80 mg/dL 0-99 Mar 06, 2020 11:35 AM [facility] CBC & DIFF Speci men Type: BLOOD No comment entered. Ordering Provider: SHYANNE GARCIA Report Released Date/Time: May 22, 2019 07:32 AM Reporting Lab: [facility] [place] [address] [facility] [address] Performing Lab: [facility] [address] [facility] [address] WBC 7.78 K/cmm 3.60-11.20 RBC 5.73 M/ul [...] 0.3 % Mar 06, 2020 11:35 AM [facility] COMPREHENSIVE METABOL IC PANEL Specimen Type: PLASMA No comment entered. Ordering Provider: SHYANNE GARCIA Report Released Date/Time: May 22, 2019 07:32 AM Reporting Lab: [facility] [address] [facility] [address] Performing Lab: [facility] [address] [facility] [address] *CREATININE 0.89 mg/dL 0.70-1.30 UREA NITROGEN mg/dL [...] EGFR 99.1 Mar 06, 2020 11:35 AM [facility] TSH Speci men Type: SERUM No comment entered. Ordering Provider: SHYANNE GARCIA Report Released Date/Time: May 22, 2019 07:32 AM Reporting Lab: [facility] DIV [address] [facility] [address] Performing Lab: [facility] DIV [address] [facility] [address] TSH 1.499 uIU/mL 0.47-5.00 Mar 06, 2020 11:35 AM [facility] PROSTATIC SPECIFIC AN TIGEN(TOTAL) Specimen Type: SERUM No comment entered. Ordering Provider: SHYANNE GARCIA Report Released Date/Time: May 22, 2019 07:32 AM Reporting Lab: [facility] [address] [facility] [address] Performing Lab: [facility] [address] [facility] [address] PROSTATIC SPECIFIC ANTIGEN(TOTAL) 0.26 ng/mL 0.00-4.00 Mar 06, 2020 11:35 AM [facility] URINALYSIS Speci men Type: URINE No comment entered. Ordering Provider: SHYANNE GARCIA Report Released Date/Time: May 22, 2019 07:32 AM Reporting Lab: [facility] [address] [facility] [address] Performing Lab: [facility] [address] [facility] [address] URINE COLOR Yellow SPECIFIC GRAVITY 1.018 1.005-1.030 [...] 2018 08:56 AM VA-TOBACCO USER SOME DAYS [facility] [employer] [facility] Tobacco Use History This section includes a history of the smoking, or tobacco -related health factors, that were collected on or before the date of the Encoun ter. The data comes from the [place] facility where the Encounter took place. Date/Time Smoking Status/Tobacco Use Comment Facil ity Feb 15, 2018 08:56 AM VA-TOBACCO USE 1 TO < 5 YEARS [facility] [place] Feb 15, 2018 08:56 AM VA-TOBACCO USE ADVICE [facility] [place] Feb 15, 2018 08:56 AM VA-TOBACCO USE ENTOMOLOGY PROFESSOR NO [facility] [place] Feb 15, 2018 08:56 AM VA-TOBACCO USE MED NO [facility] [place] Feb 15, 2018 08:56 AM VA-TOBACCO USER SOME DAYS [facility] [place] Advance Directives: All historical [...] Result: Screen is negative. /zulema/ ABUNDIO Sommers [employer] Signed: 03/06/2020 11:34 ABUNDIO TAY [facility] [place]
--- OUTSIDE RECORDS SUMMARY | 2021-02-21 05:57 | XMS REPORT | Encounter Summary ---
Author Author Department [facility] LUCINA williamson Organization Department [facility] Address Unknown Phone Unavailable Care Team Providers Care Team Psychologist Name Role Phone SHYANNE GARCIA PCP Unavailable [...] 17, 2021 01:30 PM AMBULATORY - MEDICINE [place] Feb 26, 2021 08:00 AM AMBULATORY - MEDICINE [place] Mar 05, 2021 07:30 AM AMBULATORY - MEDICINE [place] Mar 05, 2021 08:00 AM AMBULATORY - MEDICINE IN [...] the Encounter. The data comes from all [facility]. Test Date/Time Test Type Test Details Facility Name Feb 17, 2021 03:28 PM Consult Order TO-UROLOGY OUTPT-5 [id number] Cons Patrol Guard's Choice [facility] Feb 17, 2021 03:28 PM Consult Order TO-NEUROLOGY OUTPT -[id number] Cons Patrol [facility] Feb 19, 2021 12:00 AM Laboratory - Chemistry Order ERYTHROCY TE SEDIMENTATION RATE 5 ML LAVENDER TOP BLOOD [facility] Feb 19, 2021 12:00 AM Laboratory - Chemistry Order C-REACTIV E PROTEIN SST GEL SERUM [facility] Feb 19, 2021 12:00 AM Laboratory - Chemistry Order CBC & DIF F 5 ML LAVENDER TOP BLOOD [facility] Feb 19, 2021 12:00 AM Laboratory - Chemistry Order TSH SST GEL S AKILA [facility] Feb 19, 2021 12:00 AM Laboratory - Chemistry Order PROSTATIC SPECIFIC ANTIGEN(TOTAL) SST GEL SERUM [facility] Feb 19, 2021 12:00 AM Laboratory - Chemistry Order URINALYSI S URIN,RAND URINE [facility] Feb 19, 2021 12:00 AM Laboratory - Chemistry Order LIPID PROFILE(HDL,TRIG,CHOL,LDL) GREEN TOP TUBE PLASMA [facility] Feb 19, 2021 12:00 AM Laboratory - Chemistry Order COMPREHEN SIVE METABOLIC PANEL GREEN TOP TUBE PLAS[facility] Surgical Procedures: All associated to the encounter [...] and tobacco- related health factors from the [facility] where the Encounter took place. Current Smoking Status This section includes the most current smoking, or tobacco -related health factor, from the [facility] where the Encounter took place. Date/Time Current Smoking Status Comment Facility Feb 15, 2018 08:56 AM VA-TOBACCO USER SOME DAYS [facility] [place] Tobacco Use History This section includes a history of the smoking, or tobacco -related health factors, that were collected on or before the date of the Encoun ter. The data comes from the [place] facility where the Encounter took place. Date/Time Smoking Status/Tobacco Use Comment Facil ity Feb 15, 2018 08:56 AM VA-TOBACCO USE 1 TO < 5 YEARS [facility] [place] Feb 15, 2018 08:56 AM VA-TOBACCO USE ADVICE [facility] [place] Feb 15, 2018 08:56 AM VA-TOBACCO USE BOTTOM STOP ATTACHER NO [facility] [place] Feb 15, 2018 08:56 AM [facility] Feb 15, 2018 08:56 AM [facility] Advance Directives: All historical and current [...] CHEW. Future Appointments: FEB 26, 2021@09:00 Clinic: TO-SAGE OSE[facility] N/C MAR 19, 2021@08:00 Clinic: HODAN OSEGUERA-PACT TEAM 1 PCP Future PRICILLA Reminders: Renewal request will be forwarded to SHYANNE GARCIA for consideration. If approved, please renew prescription. If you do not wish to renew this prescription please document denial as an addendum to this note. If ordered, this medication should be processed for . /es/ BEN VILLAFUERTE LPN Signed: 02/04/2021 13:20 Receipt Acknowledged By: 02/04/2021 13:47 /es/ BEN DOR[facility]Y [facility]
--- OUTSIDE RECORDS SUMMARY | 2021-02-21 05:58 | XMS REPORT | Encounter Summary ---
[facility] Organization Department [facility] Address Unknown Phone Unavailable Care Team Providers Care Tread Builder Name Role Phone SHYANNE GARCIA PCP Unavailable Insurance Providers: All historical and current No Data Provided for This Section Selected Encounter This section includes the information on record at [place] for the Encounter. Date/Time Encounter Type Encounter Description Reason Provider Source July 17, 2020 01:00 PM Outpatient Encounter TELEPHONE [facility] Encounter Template Text not used by [place] Assessments - Encounter Diagnoses No Data Provided for This Section Plan of Treatment: Future Appointments (+ 6 months) and Future Tests (+/- 45 day s) The Plan of Treatment section includes future care activities for the patient fr om all [place] treatment facilities. This section includes future appointments and fu ture orders which are active, pending or scheduled. Future Appointments This section includes appointments that were scheduled t o occur 6 months from the date of the Encounter, up to a maximum of 20 appointme nts. The data comes from all [place] treatment facilities. Appointment Date/Time Appointment Type Appointment Facili ty Name July 18, 2020 01:30 PM AMBULATORY - PS[facility]CHIATRY [facility] July 18, 2020 01:31 PM [facility] [facility] [place] [facility] Aug 08, 2020 02:00 PM AMBULATORY - NONE [facility] IC Sep 09, 2020 03:00 PM AMBULATORY - NONE [facility], [place] 15 [...] and tobacco- related health factors from the [place] facility where the Encounter took place. Current Smoking Status This section includes the most current smoking, or tobacco -related health factor, from the [place] facility where the Encounter took place. Date/Time Current Smoking Status Comment Facility Feb 15, 2018 08:56 AM VA-TOBACCO USER SOME DAYS [facility] [place] Tobacco Use History This section includes a history of the smoking, or tobacco -related health factors, that were collected on or before the date of the Encoun ter. The data comes from the [place] facility where the Encounter took place. Date/Time Smoking Status/Tobacco Use Comment [facility] it Feb 15, 2018 08:56 AM VA-TOBACCO USE 1 TO < 5 YEARS [facility] [place] [facility] [place] [facility] Feb 15, 2018 08:56 AM VA-TOBACCO USE ADVICE [facility] [place] Feb 15, 2018 08:56 AM VA-TOBACCO USE PHYSICIAN GYNECOLOGIST NO [facility] [place] Feb 15, 2018 08:56 AM VA-TOBACCO USE MED NO [facility] [place] Feb 15, 2018 08:56 AM VA-TOBACCO USER SOME DAYS [facility] [place] Advance Directives: [...] RONDA BASS EXP COSIGNER: URGENCY: STATUS: COMPLETED [employer] was scheduled for RN Phone appointment; called as scheduled no answer left message with phone number requesting a return call. /zulema/ RONDA BASS RN Signed: 07/17/2020 16:[address] [facility] [place]
--- OUTSIDE RECORDS SUMMARY | 2021-02-21 05:58 | XMS REPORT | Encounter Summary ---
Author [facility] Organization Department [facility] Address Unknown Phone Unavailable Care Team Providers Care Venetian Blind Machine Operator Name Role Phone SHALINI MONTEJO PCP Unavailable [...] Comments: Unspecified Mood [Affective] Disorder AMADEO ESQUEDA [facility] Encounter Template Text not used by [place] Assessments - Encounter Diagnoses This section includes the primary and secondary diag noses documented for the Encounter. Date/Time Primary/Secondary Diagnosis Diagnosis Name Provider Source Jun 18, 2020 05:00 PM PRIMARY Unspecified mood [affectiv e] disorder AMADEO ESQUEDA [facility] Plan of Treatment: Future Appointments (+ [...] 20, 2020 01:00 PM AMBULATORY - NONE [facility] July 16, 2020 01:00 PM AMBULATORY - NONE [facility] July 17, 2020 01:00 PM [facility] [place] [facility] [facility] [place] [facility] [place] [facility] July 18, 2020 01:30 PM AMBULATORY - PSYCHIATRY [facility] July 18, 2020 01:31 PM AM[facility] [place] [facility] [place] [facility] Aug 08, 2020 02:00 PM AMBULATORY - NONE [facility] Sep 09, 2020 03:00 PM [facility]ULATORY - NONE [facility] [place] 15 Surgical Procedures: [...] W PT 30 M INUTES AJ- CLINICAL PROPERTY PRESERVATION SPECIALIST AMADEO ESQUEDA [facility] Surgical Notes There are no notes [...] 2020 07:30 AM VA-TOBACCO USER EVERY DAY [facility] Tobacco Use History This section includes a history of the smoking, or tobacco -related health factors, that were collected on or before the date of the Encoun ter. The data comes from the [place] facility where the Encounter took place. Date/Time Smoking Status/Tobacco Use Comment Selam iterin Mar 27, 2020 07:30 AM VA-TOBACCO USE 5 TO 15 YEARS [facility] Mar 27, 2020 07:30 AM VA-TOBACCO USE ADVICE [facility] Mar 27, 2020 07:30 AM VA-TOBACCO USE SPECIAL EDUCATION EDUCATIONAL ASSISTANT NO [facility] Mar 27, 2020 07:30 AM VA-TOBACCO USE MED NO [facility] Mar 27, 2020 07:30 AM VA-TOBACCO USER EVERY DAY [facility] Feb 06, 2019 05:16 PM VA-TOBACCO DOESNT USE WI 30 MIN WA[place]UP [facility] Feb 06, 2019 05:16 PM VA-TOBACCO USE > 15 LESS THAN 30 YEARS [facility] Feb 06, 2019 05:16 PM VA-TOBACCO USE ADVICE [facility] Feb 06, 2019 05:16 PM VA-TOBACCO USE SPECIAL EDUCATION EDUCATIONAL ASSISTANT NO [facility] Feb 06, 2019 05:16 PM VA-TOBACCO USE MED NO [facility] Feb 06, 2019 05:16 PM VA-TOBACCO USER SOME DAYS [facility] Oct 29, 2010 07:46 AM CURRENT NON-TOBACCO USER [facility] Advance Directives: All historical and current No [...] He lives with his and children in [place], [place] 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 Mr. Vasques is a walk in and [...] 20, 2020 at 1300 for further assessment. /uzlema/ AMADEO ESQUEDA PROPERTY PRESERVATION SPECIALIST Signed: 06/18/2020 17:23 AMADEO ESQUEDA [facility]
--- OUTSIDE RECORDS SUMMARY | 2021-02-21 05:58 | XMS REPORT | Encounter Summary ---
Author Author Department [facility] LUCINA williamson Organization Department [facility] Address Unknown Phone Unavailable Care Team Providers Care Fan Runner Name Role Phone MELVIN GARCIAA PCP Unavailable Insurance Providers: All historical and current No Data Provided for This Section Selected Encounter This section includes the information on record at [place] for the Encounter. Date/Time Encounter Type Encounter Description Reason Provider Source Sep 09, 2020 08:00 AM Outpatient Encounter ADMIN PAT ACTIVTIES (MASNO NCT) IHE Encounter Template Text not used by [place] Assessments - Encounter Diagnoses No Data Provided for This Section Plan of Treatment: Future Appointments (+ 6 months) and Future Tests (+/- 45 day s) The Plan of Treatment section includes future care activities for the patient fr om all [place] treatment facilities. This section includes future appointments and fu ture orders which are active, pending or scheduled. Future Appointments This section includes appointments that were scheduled t o occur 6 months from the date of the Encounter, up to a maximum of 20 appointme nts. The data comes from all [place] treatment facilities. Appointment Date/Time Appointment Type Appointment Facili ty Name Feb 17, 2021 01:30 PM AMBULATORY - MEDICINE [facility] [place] Feb 26, 2021 08:00 AM AMBULATORY - MEDICINE [facility] [place] Mar 05, 2021 07:30 AM AMBULATORY - MEDICINE [facility] Mar 05, 2021 08:00 AM AMBULATORY - MEDICINE [facility] Surgical Procedures: All associated to the encounter [...] and tobacco- related health factors from the [place] facility where the Encounter took place. Current Smoking Status This section includes the most current smoking, or tobacco -related health factor, from the [place] facility where the Encounter took place. Date/Time Current Smoking Status Comment Facility Feb 15, 2018 08:56 AM VA-TOBACCO USER SOME DAYS [facility] [place] Tobacco Use History This section includes a history of the smoking, or tobacco -related health factors, that were collected on or before the date of the Encoun ter. The data comes from the [place] facility where the Encounter took place. Date/Time Smoking Status/Tobacco Use Comment [facility] it Feb 15, 2018 08:56 AM VA-TOBACCO USE 1 TO < 5 YEARS [facility] [place] Feb 15, 2018 08:56 AM VA-TOBACCO USE ADVICE [facility] [place] Feb 15, 2018 08:56 AM VA-TOBACCO USE VESSEL SCRAPPER NO [facility] [place] Feb 15, 2018 08:56 AM VA-TOBACCO USE MED NO [facility] [place] Feb 15, 2018 08:56 AM VA-TOBACCO USER SOME DAYS [facility] [place] Advance Directives: All historical and [...] 17, 2020@09:19:21 AUTHOR: VENESSA DE LA GARZA COSIGNER: URGENCY: STATUS: COMPLETED Topic/Procedure: EYE EXAM Institution/[facility]: [facility] Date of Service: 09/09/2020 To refer to the attached scanned document, on the Tools Bar select the Tools, then select Imaging (log in) and then, if needed, select View and display list. /zulema/ VENESSA DE LA GARZA DIRECTOR DIGITAL Signed: 10/17/2020 09:19 VEN[address] DE LA GARZA [facility]
--- OUTSIDE RECORDS SUMMARY | 2021-02-21 05:58 | XMS REPORT ---
Author Author Department [facility] LUCINA williamson Organization Department [facility] Address Unknown Phone Unavailable Care Team Providers Care Payroll And Benefits Assistant Name Role Phone RADHA SHYANNE PCP Unavailable [...] 20, 2020 01:00 PM AM[facility]ULATORY - NONE [facility] July 16, 2020 01:00 PM AMBULATORY - NONE [facility] IC July 17, 2020 01:00 PM [facility] [facility] [place] July 18, 2020 01:30 PM [facility] July 18, 2020 01:31 PM AMBULATORY [place] [facility] [place] [facility] Aug 08, 2020 02:00 PM AMBULATORY - NONE [facility] IC Sep 09, 2020 03:00 PM AMBULATORY - NONE [facility] [place] 15 Surgical Procedures: All associated [...] May 01, 2020 09:42 AM ADMINISTRATIVE NOTE: [facility] TITLE: EK-ADMINISTRATIVE STANDARD TITLE: ADMINISTRATIVE NOTE DATE OF NOTE: MAY 01, 2020@09:42 ENTRY DATE: MAY 01, 2020@09:43:14 AUTHOR: CHICHI NASCIMENTO COSIGNER: URGENCY: STATUS: COMPLETED SPOKE WITH PATIENT TODAY PATIENT DECLINED THE SENDY AND SENDY VACCINE /es/ AMARIS NASCIMENTO ADVANCED SKILLS TRAINER Signed: 05/01/2020 09:[address] [facility] DIV
--- OUTSIDE RECORDS SUMMARY | 2021-02-21 05:58 | XMS REPORT | Encounter Summary ---
Author Author Department [facility] LUCINA williamson Organization Department [facility] Address Unknown Phone Unavailable Care Team Providers Care Farm Machinery Mechanic Name Role Phone SHYANNE GARCIA PCP Unavailable Insurance Providers: All historical and current No Data Provided for This Section Selected Encounter This section includes the information on record at [place] for the Encounter. Date/Time Encounter Type Encounter Description Reason Provider Source July 16, 2020 04:02 PM Outpatient Encounter ADMIN PAT ACTIVTIES (MASNO NCT) IHE Encounter Template Text not used by [place] Assessments - Encounter Diagnoses No Data Provided for This Section Plan of Treatment: Future Appointments (+ 6 months) and Future Tests (+/- 45 day s) The Plan of Treatment section includes future care activities for the patient fr om all [place] treatment facilities. This section includes future appointments and fu ture orders which are active, pending or scheduled. Future Appointments This section includes appointments that were scheduled t o occur 6 months from the date of the Encounter, up to a maximum of 20 appointme nts. The data comes from all [place] treatment facilities. Appointment Date/Time Appointment Type Appointment Facili ty Name July 17, 2020 01:00 PM AMBULATORY [place] [facility] [facility] [place] [facility] [place] July 18, 2020 01:30 PM AMBULATORY - PSYCHIATRY [facility] July 18, 2020 01:31 PM AMBULATORY - [place] [facility] [place] [facility] Aug 08, 2020 02:00 PM AMBULATORY - NONE [facility] IC Sep 09, 2020 03:00 PM AMBULATORY - NONE [facility] T, VISN 15 Surgical Procedures: [...] COSIGNER: URGENCY: STATUS: COMPLETED Department of 's [facility] [address] [place] [address] JULY 16, 2020 LUCINA BEGUM [address] [place], [place] [address] Dear LUCINA BEGUM Please call us for an appointment. We have been trying to contact you to reschedule an appointment in [place], but we were unsuccessful in reaching you by telephone. It is important to your health that you do not have delays in your care. Please contact us to schedule your appointment within 14 days from the date of this letter. Please call toll free or ext:[phone]. This letter will 07/30/2020. Sincerely, [facility]
--- OUTSIDE RECORDS SUMMARY | 2021-02-21 05:58 | XMS REPORT ---
[facility] Address Unknown Phone Unavailable Care Team Providers Care Tinner Automatic Name Role Phone SHYANNE GARCIA PCP Unavailable [...] unspecified with Provider Comments: Bipolar II disorder ([facility] [id number]) AMADEO ESQUEDA Encounter Template Text not used by [place] Assessments - Encounter Diagnoses This section includes the primary and secondary diag noses documented for the Encounter. Date/Time Primary/Secondary Diagnosis Diagnosis Name Provider Source Aug 08, 2020 03:00 PM PRIMARY Bipolar disorder, unspecified AMADEO PATTERSON [facility] Plan of Treatment: Future Appointments (+ [...] 03:00 PM AMBULATORY - NONE [facility] - [place] T, VISN 15 Surgical Procedures: [...] PSYTX W PT 60 MIN UTES AJ-CLINICAL HUMANITIES DIVISION CHAIR AMADEO ESQUEDA [facility] Surgical Notes There are no notes [...] 2020 07:30 AM VA-TOBACCO USER EVERY DAY [facility] Tobacco Use History This section includes a history of the smoking, or tobacco -related health factors, that were collected on or before the date of the Encoun ter. The data comes from the [place] facility where the Encounter took place. Date/Time Smoking Status/Tobacco Use Comment [facility] [place] Mar 27, 2020 07:30 AM VA-TOBACCO USE 5 TO 15 YEARS [facility] Mar 27, 2020 07:30 AM VA-TOBACCO USE ADVICE [facility] Mar 27, 2020 07:30 AM VA-TOBACCO USE WOOD GLUER NO [facility] Mar 27, 2020 07:30 AM VA-TOBACCO USE MED NO [facility] Mar 27, 2020 07:30 AM VA-TOBACCO USER EVERY DAY [facility] Feb 06, 2019 05:16 PM VA-TOBACCO DOESNT USE WI 30 MIN WAKEUP [facility] Feb 06, 2019 05:16 PM VA-TOBACCO USE > 15 LESS THAN 30 YEARS [facility] Feb 06, 2019 05:16 PM VA-TOBACCO USE ADVICE [facility] Feb 06, 2019 05:16 PM VA-TOBACCO USE WOOD GLUER NO [facility] Feb 06, 2019 05:16 PM VA-TOBACCO USE MED NO [facility] Feb 06, 2019 05:16 PM VA-TOBACCO USER SOME DAYS [facility] Oct 29, 2010 07:46 AM CURRENT NON-TOBACCO USER [facility] Advance Directives: All historical and current [...] Experienced feeling "overwhelmed" and stressed at times. [place] is on time. He is alert and [...] 22, 2020 at 1400 /es/ AMADEO ESQUEDA HUMANITIES DIVISION CHAIR Signed: 08/08/2020 15:09 Receipt Acknowledged By: * AWAITING SIGNATURE * REFF,AMADEO MAURO [facility]
--- OUTSIDE RECORDS SUMMARY | 2021-02-21 05:58 | XMS REPORT | Encounter Summary ---
Author [facility] Organization Department [facility] Address Unknown Phone Unavailable Care Team Providers Care Event Promotions Coordinator Name Role Phone SHYANNE GARCIA PCP Unavailable Insurance Providers: All historical and current No Data Provided for This Section Selected Encounter This section includes the information on record at [place] for the Encounter. Date/Time Encounter Type Encounter Description Reason Provider Source July 18, 2020 01:30 PM TELEHEALTH FACILITY FEE [facility] - IND ICD-10-CM F31.9 Bipolar disorder, unspecified with Provider Comments: Bipolar II disorder ([facility] [id number]) TERRANCE BARRIOS Kaylen Encounter Template Text not used by [place] Assessments - Encounter Diagnoses This section includes the primary and secondary diag noses documented for the Encounter. Date/Time Primary/Secondary Diagnosis Diagnosis Name Provider Source July 20, 2020 02:24 PM PRIMARY Bipolar disorder, unspecified PO [facility] [place][NOTE 3] Plan of Treatment: Future Appointments (+ 6 months) and Future Tests (+/- 45 day s) The Plan of Treatment section includes future care activities for the patient fr om all [place] treatment facilities. This section includes future appointments and fu ture orders which are active, pending or scheduled. Future Appointments This section includes appointments that were scheduled t o occur 6 months from the date of the Encounter, up to a maximum of 20 appointme nts. The data comes from all [place] treatment facilities. Appointment Date/Time Appointment Type Appointment Facili ty Name Aug 08, 2020 02:00 PM AMBULATORY - NONE [facility] Sep 09, 2020 03:00 PM AMBULATORY - NONE [facility] BOB T, VISN 15 Surgical Procedures: All associated to the encounter This section includes all Surgical Procedures and Surgical Procedure Notes assoc iated to the Encounter. Surgical Procedures This section includes all Surgical Procedures associated to the Encounter. Surgical Procedure Date/Time Procedure Procedure Type Procedure Qualifiers Provider Source July 18, 2020 01:30 PM Telehealth Facility Fee TELEHEALTH FACILITY Dany COLLINS DENIS,TERRANCE Patino [facility] Surgical Notes There are no notes [...] and tobacco- related health factors from the [place] facility where the Encounter took place. Current Smoking Status This section includes the most current smoking, or tobacco -related health factor, from the [place] facility where the Encounter took place. Date/Time Current Smoking Status Comment Facility Mar 27, 2020 07:30 AM VA-TOBACCO USER EVERY DAY [facility] Tobacco Use History This section includes a history of the smoking, or tobacco -related health factors, that were collected on or before the date of the Encoun ter. The data comes from the [place] facility where the Encounter took place. 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 FURNACE NO [facility] Mar 27, 2020 07:30 AM VA-TOBACCO USE MED NO [facility] Mar 27, 2020 07:30 AM VA-TOBACCO USER EVERY DAY [facility] Feb 06, 2019 05:16 PM VA-TOBACCO DOESNT USE WI 30 MIN WAKEUP [facility] Feb 06, 2019 05:16 PM VA-TOBACCO USE > 15 LESS THAN 30 YEARS [facility] Feb 06, 2019 05:16 PM VA-TOBACCO USE ADVICE [facility] Feb 06, 2019 05:16 PM VA-TOBACCO USE OPERATOR COATING FURNACE NO [facility] Feb 06, 2019 05:16 PM VA-TOBACCO USE MED NO [facility] Feb 06, 2019 05:16 PM VA-TOBACCO USER SOME DAYS [facility] Oct 29, 2010 07:46 AM CURRENT NON-TOBACCO USER [facility] Advance Directives: All historical and current No Data Provided for This Section Radiology Reports: +/- 30 days of the encounter No Data Provided for This Section Pathology Reports: +/- 30 days of the encounter No Data Provided for This Section Encounter Notes: All associated encounter notes No Data Provided for This Section
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
--- OUTSIDE RECORDS SUMMARY | 2021-02-21 05:58 | XMS REPORT ---
Author Author Department [facility] LUCINA williamson Organization Department [facility] Address Unknown Phone Unavailable Care Team Providers Care Commissioner Of Relocation Services Name Role Phone RADHA SHYANNE PCP Unavailable Insurance Providers: All historical and current No Data Provided for This Section Selected Encounter This section includes the information on record at [place] for the Encounter. Date/Time Encounter Type Encounter Description Reason Provider Source Jul 31, 2020 01:44 PM Outpatient Encounter ADMIN PAT ACTIVTIES ([facility]) I[facility] Encounter Template Text not used by [place] Assessments - Encounter Diagnoses No Data Provided [...] 08, 2020 02:00 PM AMBULATORY - NONE [facility] Sep 09, 2020 03:00 PM AMBULATORY - NONE [facility] 15 Surgical Procedures: [...] LETTER Has ADDENDA Department of 's Affairs [place] [address] [place] [id number] JUL 31, 2020 LUCINA BEGUM [address] [place], [place] [address] Dear ULCINA BEGUM Please call us for an appointment. [...] letter. Please call toll free or ext: [phone]. Sincerely, Torri Lino, Lead Telehealth Buckle Strap Drum Operator Dr[facility] Perez[facility] Administrative Telephone Contact Today's Date: JUL 31, 2020 Appointment Date: Jul@14:00 [place]--[facility] [place] [facility]- S[facility] PM-EH Future Appointments: 08/08/2020 14:00 TO--[facility] [place] [facility]-FT S CT 02/26/2021 09:00 TO-CLIN LAB FAST FT SC JOE 03/19/2021 08:00 TO-DANIEL OSEGUERA-PACT TEAM 1 P Attempts to contact the : phone call # 1 Letter sent in response to a consult/order (Slovenian) Attempts to contact by phone for the following reason: Cancellation We have been unable to reach the at the following telephone number(s): [phone] Cell Other comments: attempting to RS CLCX 09/19/[address] Perez. [place] with [phone] callback and letter mailed that brody galeano [phone] 08/05/2020 ADDENDUM STATUS: COMPLETED Administrative Telephone Contact [...] reach the at the following telephone number(s): [phone] Cell Other comments: attempting to RS CLCX Chris in [place] on 09/19/20. [place] with [phone] callback. letter previously sonido d expires on 08/14/20 /zulema/ TORRI LINO Lead Telehealth Clinical Buckle Strap Drum Operator Signed: 08/05/2020 11:38 08/26/2020 ADDENDUM STATUS: COMPLETED Administrative Telephone Contact Today's Date: AUG 26, 2020 Appointment Date: Aug@15:00 COM CARE-OTHER Future Appointments: 09/09/2020 15:00 COM CARE-OTHER 02/26/2021 09:00 TO-CLIN LAB FAST FT SC JOE 03/19/2021 08:00 TO-FT OUMAR-PACT TEAM 1 P Attempts to contact the : phone call # 3 Letter sent in response to a consult/order (Slovenian) Attempts to contact by phone for the following reason: Cancellation We have been unable to reach the at the following telephone number(s): [phone] Cell Other comments: attempting to RS CLCX 09/[address] Perez. VM left with [phone] callback and letter already sent on 08/14/20. If no response from patient by 08/29/20 will request disposition of RTC. /makenzie LINO Lead Telehealth Clinical Buckle Strap Drum Operator Signed: 08/26/2020 09:32 09/01/2020 ADDENDUM STATUS: COMPLETED [...] call back. /makenzie LINO Lead Telehealth Clinical Buckle Strap Drum Operator Signed: 09/01/2020 15:24 Receipt Acknowledged By: 09/15/2020 [...] him RS. /makenzie LINO Lead Telehealth Clinical Buckle Strap Drum Operator Signed: 11/21/2020 15:57 TORRI LINO [facility] JAYME Guzman
--- OUTSIDE RECORDS SUMMARY | 2021-02-21 05:58 | XMS REPORT ---
Author Author Department [facility] LUCINA williamson Organization [facility] Address Unknown Phone Unavailable Care Team Providers Care Supervisor Plastics Name Role Phone SHYANNE GARCIA PCP Unavailable Insurance Providers: All historical and current No Data Provided for This Section Selected Encounter This section includes the information on record at [place] for the Encounter. Date/Time Encounter Type Encounter Description Reason Provider Source Mar 27, 2020 12:00 AM Outpatient Encounter EVENT (HISTORICAL) IHE Encounter Template Text not used by [place] Assessments - Encounter Diagnoses No Data Provided [...] 20, 2020 01:00 PM AMBULATORY - NONE [facility] July 16, 2020 01:00 PM AMBULATORY - NONE [facility] July 17, 2020 01:00 PM AM[facility] - [facility] July 18, 2020 01:30 PM AMBULATORY - PSYCHIATRY [facility] July 18, 2020 01:31 PM AMBULATORY - [facility] [facility] [place] [facility] Aug 08, 2020 02:00 PM AMBULATORY - NONE [facility] Sep 09, 2020 03:00 PM AMBULATORY - NONE [facility], VISN 15 Surgical Procedures: All associated to the encounter No Data Provided for This Section Lab Results: +/- 30 days of the encounter This section includes the Chemistry and Hematology Lab R esults on record with [place] for the patient. Radiology Reports and Pathology Report s are provided separately, in subsequent sections. Lab Results This section contains the Chemistry/Hematology Results zenobia t were resulted 30 days before or 30 days after the date of the Encounter. Date/Time Source Result Type Result - Unit Interpretation Reference Range Comment Mar 06, 2020 11:35 AM [facility] LIPID PROFILE(HDL,TRI G,CHOL,LDL) Specimen Type: PLASMA No comment entered. Ordering Provider: SHYANNE GARCIA Report Released Date/Time: May 22, 2019 07:32 AM Reporting Lab: [facility] [facility] [address] [facility] [address] Performing Lab: [facility] [place] [address] [facility] [address] CHOLESTEROL 138 mg/dL 0-200 TRIGS 66 mg/dL 0-150 HDL-CHOLESTEROL 45 mg/dL > 40 LDL (CALC) 80 mg/dL 0-99 Mar 06, 2020 11:35 AM [facility] CBC & DIFF Speci men Type: BLOOD No comment entered. Ordering Provider: SHYANNE GARCIA Report Released Date/Time: May 22, 2019 07:32 AM Reporting Lab: [facility] [place] [address] [facility] [address] Performing Lab: [facility] [place] [facility] [address] [facility] [address] WBC 7.78 K/cmm 3.60-11.20 RBC 5.73 M/ul [...] % Mar 06, 2020 11:35 AM [facility] COMPREHENSIVE METABOL IC PANEL Specimen Type: PLASMA No comment entered. Ordering Provider: SHYANNE GARCIA Report Released Date/Time: May 22, 2019 07:32 AM Reporting Lab: [facility] [address] [facility] [address] Performing Lab: [facility] [address] [facility] [address] *CREATININE 0.89 mg/dL 0.70-1.30 UREA NITROGEN mg/dL [...] 99.1 Mar 06, 2020 11:35 AM [facility] TSH Speci men Type: SERUM No comment entered. Ordering Provider: SHYANNE GARCIA Report Released Date/Time: May 22, 2019 07:32 AM Reporting Lab: [facility] [address] [facility] [address] Performing Lab: [facility] [address] [facility] [address] TSH 1.499 uIU/mL 0.47-5.00 Mar 06, 2020 11:35 AM [facility] PROSTATIC SPECIFIC AN TIGEN(TOTAL) Specimen Type: SERUM No comment entered. Ordering Provider: SHYANNE GARCIA Report Released Date/Time: May 22, 2019 07:32 AM Reporting Lab: [facility] [place] [facility] [address] [facility] [address] Performing Lab: [facility] [address] [facility] [address] PROSTATIC SPECIFIC ANTIGEN(TOTAL) 0.26 ng/mL 0.00-4.00 Mar 06, 2020 11:35 AM [facility] URINALYSIS Speci men Type: URINE No comment entered. Ordering Provider: SHYANNE GARCIA Report Released Date/Time: May 22, 2019 07:32 AM Reporting Lab: [facility] [place] [facility] [address] [facility] [address] Performing Lab: [facility] [address] [facility] [address] URINE COLOR Yellow SPECIFIC GRAVITY 1.018 1.005-1.030 [...]
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
--- OUTSIDE RECORDS SUMMARY | 2021-02-21 05:58 | XMS REPORT | Encounter Summary ---
Author Author [facility] LUCINA williamson Organization [facility] Address Unknown Phone Unavailable Care Team Providers Care Private Inquiry Agent Name Role Phone SHYANNE GARCIA PCP Unavailable [...] status migrainosus with Provider Comments: Headache disorder ([facility] [id number]) SHYANNE GARCIA Kaylen Encounter Template Text not used by [place] Assessments - Encounter Diagnoses This section includes the primary and secondary diag noses documented for the Encounter. Date/Time Primary/Secondary Diagnosis Diagnosis Name Provider Source Mar 27, 2020 08:53 AM PRIMARY Migraine, unsp, no t intractable, without status migrainosus SHYANNE GARCIA [facility] Mar 27, 2020 08:53 AM SECONDARY Overactive bladder SHYANNE GARCIA [facility] Mar 27, 2020 08:53 AM SECONDARY Pain in left ankle and cleo nts of left foot SHYANNE GARCIA [facility] Mar 27, 2020 08:53 AM SECONDARY [facility] Plan of Treatment: Future Appointments (+ 6 [...] - NONE [facility] July 16, 2020 01:00 PM AMBULATORY - NONE [facility] July 17, 2020 01:00 PM AMBULATORY - PSYCHIATRY [facility] July 18, 2020 01:30 PM AMBULATORY - PSYCHIATRY [facility] July 18, 2020 01:31 PM AMBULATORY - PS[facility]CHIATRY [facility] Aug 08, 2020 02:00 PM AMBULATORY - NONE [facility] Sep 09, 2020 03:00 PM AMBULATORY - NONE [facility], V[facility] 15 Surgical [...] Range Comment Mar 06, 2020 11:35 AM [facility] LIPID PROFILE(HDL,TRI G,CHOL,LDL) Specimen Type: PLASMA No comment entered. Ordering Provider: SHYANNE GARCIA Report Released Date/Time: May 22, 2019 07:32 AM Reporting Lab: [facility] [address] [facility] [address] Performing Lab: [facility] [address] [facility] [address] CHOLESTEROL 138 mg/dL 0-200 TRIGS 66 mg/dL 0-150 HDL-CHOLESTEROL 45 mg/dL > 40 LDL (CALC) 80 mg/dL 0-99 Mar 06, 2020 11:35 AM [facility] CBC & DIFF Speci men Type: BLOOD No comment entered. Ordering Provider: SHYANNE GARCIA Report Released Date/Time: May 22, 2019 07:32 AM Reporting Lab: [facility] [address] [facility] [address] Performing Lab: [facility] [address] [facility] [address] WBC 7.78 K/cmm 3.60-11.20 RBC 5.73 M/ul [...] 0.3 % Mar 06, 2020 11:35 AM [facility] COMPREHENSIVE METABOL IC PANEL Specimen Type: PLASMA No comment entered. Ordering Provider: SHYANNE GARCIA Report Released Date/Time: May 22, 2019 07:32 AM Reporting Lab: [facility] [address] [facility] [address] Performing Lab: [facility] [address] [facility] [address] *CREATININE 0.89 mg/dL 0.70-1.30 UREA NITROGEN mg/dL [...] EGFR 99.1 Mar 06, 2020 11:35 AM [facility] TSH Speci men Type: SERUM No comment entered. Ordering Provider: SHYANNE GARCIA Report Released Date/Time: May 22, 2019 07:32 AM Reporting Lab: [facility] [address] [facility] [address] Performing Lab: [facility] [address] [facility] [address] TSH 1.499 uIU/mL 0.47-5.00 Mar 06, 2020 11:35 AM [facility] PROSTATIC SPECIFIC AN TIGEN(TOTAL) Specimen Type: SERUM No comment entered. Ordering Provider: SHYANNE GARCIA Report Released Date/Time: May 22, 2019 07:32 AM Reporting Lab: [facility] [address] [facility] [address] Performing Lab: [facility] [address] [facility] [address] PROSTATIC SPECIFIC ANTIGEN(TOTAL) 0.26 ng/mL 0.00-4.00 Mar 06, 2020 11:35 AM [facility] URINALYSIS Speci men Type: URINE No comment entered. Ordering Provider: SHYANNE GARCIA Report Released Date/Time: May 22, 2019 07:32 AM Reporting Lab: [facility] [address] [facility] [address] Performing Lab: [facility] [address] [facility] [address] URINE COLOR Yellow SPECIFIC GRAVITY 1.018 1.005-1.030 [...] 99 % 75 in 176.1 lb 22 [facility] Mar 27, 2020 07:40 AM 0 [facility] Immunizations: All administered on the encounter [...] 2020 07:30 AM VA-TOBACCO USER EVERY DAY [facility] Tobacco Use History This section includes a history of the smoking, or tobacco -related health factors, that were collected on or before the date of the Encoun ter. The data comes from the [place] facility where the Encounter took place. Date/Time Smoking Status/Tobacco Use Comment Selam moses Mar 27, 2020 07:30 AM VA-TOBACCO USE 5 TO 15 YEARS [facility] Mar 27, 2020 07:30 AM VA-TOBACCO USE ADVICE [facility] Mar 27, 2020 07:30 AM VA-TOBACCO USE RADIO ANNOUNCER NO [facility] Mar 27, 2020 07:30 AM VA-TOBACCO USE MED NO [facility] Mar 27, 2020 07:30 AM VA-TOBACCO USER EVERY DAY [facility] Feb 06, 2019 05:16 PM VA-TOBACCO DOESNT USE WI 30 MIN WAKEUP [facility] Feb 06, 2019 05:16 PM VA-TOBACCO USE > 15 LESS THAN 30 YEARS [facility] Feb 06, 2019 05:16 PM VA-TOBACCO USE ADVICE [facility] Feb 06, 2019 05:16 PM VA-TOBACCO USE RADIO ANNOUNCER NO [facility] Feb 06, 2019 05:16 PM VA-TOBACCO USE MED NO [facility] Feb 06, 2019 05:16 PM VA-TOBACCO USER SOME DAYS [facility] Oct 29, 2010 07:46 AM CURRENT NON-TOBACCO USER [facility] Advance Directives: All historical and [...] 07:37 AM NURSING OUTPATIENT NOTE: [facility] STANDARD TITLE: NURSING OUTPATIENT NOTE DATE OF NOTE: MAR 27, 2020@07:37 ENTRY DATE: MAR 27, 2020@07:37:55 AUTHOR: DULCE JAY COSIGNER: URGENCY: STATUS: COMPLETED [facility] Has ADDENDA Coronavirus Disease 2019 [...] preferred language for discussing health care is: Mexican Today's learning assessment regarding patient's readiness to [...] Not worried about housing near future [facility] reports the following: Within the past 12 [...] prominence or wounding caused by a medical claims examiner? 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 Hobbies: plays w/ kids, remodeling home Exercise: walks daily, up to 4 miles. Runs Diet: regular Monitor: none Tattoos: 1 Piercings: earlobes x1 bilat Eye exam: 12/31 Pneumovax: 03/20/19 Tdap: 03/16/18 Social: , 6 children. Lives with and 5 kids (1 is a step). 1 daughter lives with her mother. 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 + [...] options or clinics * [place]'s national quitline, 5-444-EUTQ-VET, with counseling available Tuesday-Tuesday The patient was [...] have been communicated to the . [facility] confirms understanding of those requirements and indicates the following VVC needs: Patient does not have a completed VVC Encounter/Visit within the last two years and desires to complete the VVC set-up process. has virtual equipment WITH ACTIVE EMAIL The Provider and [facility] agree to the use of Telehealth and the [facility] confirms they have their own smart device (smart phone, tablet, laptop or computer) with a camera AND audio AND they have a current active email address: CURRENT EMAIL ADDRESS: [email or web address] has completed VVC appointments within the last two years but would like to have a new test call. * should call the Office of Connected Care Health Desk([facility]) at [phone] Option 1 for test call. * informed a [place] staff member will call to follow-up. 'S RIGHT TO DECLINE STATEMENT understands they have the right to decline the use of Telehealth Technology at any time without adverse affects on their continued access to healthcare. Suicide Screen: C-SSRS Screening [place]-Suicide Severity Rating Scale (C-SSRS Screener) 1. Over [...] Continue oxybutynin 10mg SA leonarda y. Next [facility] Urology w/ Dr Cruz in April. [facility] Appointment Date: 01/03/20@1430, YASMINE CRUZ MD, [facility] [id number], [id number], 05/22/19-07/01/20. 05/02/20 testosterone 172 L. Vet states [...] please request office/consult notes f rom Dr rCuz /zulema/ SHYANNE ROBISON Signed: 03/27/2020 08:21 Receipt Acknowledged By: 03/27/2020 08:36 /es/ SOHAN Parks MA RTIN 03/27/2020 ADDENDUM STATUS: COMPLETED February LAB RESULTS FAXED TO DR. Kaylen CHANG AT [phone] THIS DATE FOR CHART INFORMATION TOGETHER WITH FAXED REQUEST FOR CHART NOTES FROM THE 'S CONSULT VISIT. CONFIRMATION OF FAX COMPLETION REC'D BY THIS WORKER AT 8;37. /zulema/ SOHAN VILLA Signed: 03/27/2020 08:46 SHYANNE GARCIA [facility]
--- OUTSIDE RECORDS SUMMARY | 2021-02-21 05:58 | XMS REPORT | Encounter Summary ---
[facility] Address Unknown Phone Unavailable Care Team Providers Care Certified Pediatric Nurse Practitioner Name Role Phone SHALINI GARCIA PCP Unavailable [...] JAY Encounter Template Text not used by [place] Assessments - Encounter Diagnoses This section includes the primary and secondary diag noses documented for the Encounter. Date/Time Primary/Secondary Diagnosis Diagnosis Name Provider Source Jun 18, 2020 05:20 PM PRIMARY Anxiety disorder, unspecified WO DULCE VIDALES V [facility] Plan of Treatment: Future Appointments (+ [...] 20, 2020 01:00 PM AMBULATORY - NONE [facility] July 16, 2020 01:00 PM AMBULATORY - NONE [facility] July 17, 2020 01:00 PM [facility] July 18, 2020 01:30 PM AMBULATORY - PSYCHIATRY [facility] July 18, 2020 01:31 PM [facility] Aug 08, 2020 02:00 PM AMBULATORY - NONE [facility] Sep 09, 2020 03:00 PM AMBULATORY - NONE [facility] Krista, VISN 15 [...] per Session PT EDUCATION DULCE MEMBRENO V [facility] Surgical Notes There are no notes [...] 2020 07:30 AM VA-TOBACCO USER EVERY DAY [facility] Tobacco Use History This section includes a history of the smoking, or tobacco -related health factors, that were collected on or before the date of the Encoun ter. The data comes from the [place] facility where the Encounter took place. Date/Time Smoking Status/Tobacco Use Comment [facility] it Mar 27, 2020 07:30 AM VA-TOBACCO USE 5 TO 15 YEARS [facility] Mar 27, 2020 07:30 AM VA-TOBACCO USE ADVICE [facility] Mar 27, 2020 07:30 AM VA-TOBACCO USE WEARING APPAREL FOLDER NO [facility] Mar 27, 2020 07:30 AM VA-TOBACCO USE MED NO [facility] Mar 27, 2020 07:30 AM VA-TOBACCO USER EVERY DAY [facility] Feb 06, 2019 05:16 PM VA-TOBACCO DOESNT USE WI 30 MIN WAKEUP [facility] Feb 06, 2019 05:16 PM VA-TOBACCO USE > 15 LESS THAN 30 YEARS [facility] Feb 06, 2019 05:16 PM VA-TOBACCO USE ADVICE [facility] Feb 06, 2019 05:16 PM VA-TOBACCO USE WEARING APPAREL FOLDER NO [facility] Feb 06, 2019 05:16 PM VA-TOBACCO USE MED NO [facility] Feb 06, 2019 05:16 PM VA-TOBACCO USER SOME DAYS [facility] Oct 29, 2010 07:46 AM CURRENT NON-TOBACCO USER [facility] Advance Directives: All historical and current [...] issues he is having. Patient brought to licensing officer. Patient is very nervous about speaking to anyone for fear it will get back to his work place. 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 He is "minor marriage" and has 6 children. 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 Reassured Vet that everything that is in his medical chart is confidential, explained HIPPA law. Let him know that only medical staff involved in his care could share info about him. Other than that, [place] will not release any information to anyone [...] fridays and we also have a social work specialist here that has spealty in mental issues. Patient OK with this ghost writer reporting the above to his PCP. [...] SHALINI ROBISON 06/18/2020 17:29 /zulema/ AMADEO SANONO WASH CREW PERSON 06/19/2020 ADDENDUM STATUS: COMPLETED Upon presentation to [email or web address] yesterday afternoon w/ walk-in complaints, vet also stated he needed an eye exam /zulema/ SHALINI ROBISON Signed: 06/19/2020 13:01 DULCE JAY V [facility]
--- OUTSIDE RECORDS SUMMARY | 2021-02-21 06:01 | XMS REPORT | Encounter Summary ---
Author [facility] Address Unknown Phone Unavailable Care Team Providers Care Performance Improvement Analyst Name Role Phone RADHA SHYANNE PCP Unavailable Insurance Providers: All historical and current No Data Provided for This Section Selected Encounter This section includes the information on record at [place] for the Encounter. Date/Time Encounter Type Encounter Description Reason Provider Source Feb 10, 2021 02:10 PM Outpatient Encounter COMMUNITY CARE CONSULT APRIL VELAZQUEZ IHKaylen Encounter Template Text not used by [place] [...] AMBULATORY - MEDICINE [facility] [place] Feb 26, 2021 08:00 AM AMBULATORY - MEDICINE [facility] [place] Mar 05, 2021 07:30 AM AMBULATORY MEDICINE [facility] Mar 05, 2021 08:00 AM AMBULATORY MEDICINE [facility] [place] Active, Pending, and Scheduled Orders This [...] the Encounter. The data comes from all [facility]. Test Date/Time Test Type Test Details Facility Name Feb 17, 2021 03:28 PM Consult Order TO-UROLOGY OUTPT-5 89A5 Cons Curriculum Writer's Choice [facility] Feb 17, 2021 03:28 PM Consult Order TO-NEUROLOGY OUTPT -[id number] Cons Curriculum Writer's [facility] Feb 19, 2021 12:00 AM Laboratory - Chemistry Order ERYTHROCY TE SEDIMENTATION RATE 5 ML LAVENDER TOP BLOOD [facility] Feb 19, 2021 12:00 AM Laboratory - Chemistry Order C-REACTIV E PROTEIN SST GEL SERUM [facility] Feb 19, 2021 12:00 AM Laboratory - Chemistry Order CBC & DIF F 5 ML LAVENDER TOP BLOOD [facility] Feb 19, 2021 12:00 AM Laboratory - Chemistry Order TSH SST GEL S AKILA [facility] Feb 19, 2021 12:00 AM Laboratory - Chemistry Order PROSTATIC SPECIFIC ANTIGEN(TOTAL) SST GEL [facility] Feb 19, 2021 12:00 AM Laboratory - Chemistry Order URINALYSI S URIN,RAND URINE [facility] Feb 19, 2021 12:00 AM Laboratory - Chemistry Order LIPID PROFILE(HDL,TRIG,CHOL,LDL) GREEN TOP TUBE PLASMA [facility] Feb 19, 2021 12:00 AM Laboratory - Chemistry Order COMPREHEN SIVE METABOLIC PANEL [facility]EN [facility] Surgical Procedures: All associated to [...] Intake Date Presenting to the Facility: Jan [facility] Name: Hospital: [facility] Address: City: [place] State: [place] Zip Code: Phone : Chief complaint: MIGRAINE Primary Diagnosis: Patient Admitted? No Community Facility Point of Contact: Name: COTY TINAJERO ##################################################### Notification ID: [id number] Status: POM Review Auth #: NOT AVAILABLE AT THIS TIME PROVIDER/PATIENT WILL NEED TO CONTACT POM UNIT FOR STATUS OR QUESTIONS ###################################################### MED RECS REQST FAXED TO [facility] PCP & PC RN notified via secure email /zulema/ MARTÍN ROLLINS [facility] Advanced Medical Support Asst Signed: 02/10/2021 14:12 02/11/2021 ADDENDUM STATUS: COMPLETED ##################################################### Notification ID: [id number] Status: Closed - Approved for 1703 Auth #: [id number] ###################################################### /zulema/ MARTÍN ROLLINS [facility] Advanced Medical Support Asst Signed: 02/11/2021 12:25 MARTÍN ROLLINS [facility]
== END 2021-02-21 04:26 | disposition home or self-care (01) ==
LOC: EDUNIT# 03:28 → ER FS 03:29
DX: G44.009 Cluster headache syndrome, unspecified, not intractable (principal); Z72.0 Tobacco use
CPT/HCPCS: 99281

== ENCOUNTER → 2021-04-24 | Outpatient (CLI) | payer OTHER ==
[~2021-04-24] MED LIST changes: +GADOTERATE 0.5 MMOL/ML (CLARISCAN) 15 ML VIAL IV ONE
--- NOTE | 2021-04-24 17:05 | Diagnostic Imaging Report ---
PROCEDURE: MR imaging of the brain with and without contrast. TECHNIQUE: Multiplanar, multisequence MR imaging of the brain was performed with and without contrast. INDICATION: Cluster headaches. COMPARISON: No prior studies are available for comparison. FINDINGS: Ventricles and sulci are within normal limits. There is no sulcal effacement. There is no midline shift. No acute intra-axial or extra-axial hemorrhage is seen. There is no diffusion restriction. The normal expected flow-voids within the carotid siphons are seen. Post contrast images do demonstrate an enhancing extra-axial mass along the right frontal convexity measuring 15 mm x 15 mm x 10 mm. The underlying brain parenchyma is unremarkable. No abnormal brain signal is seen. Corpus callosum is unremarkable. The sella and parasellar structures are unremarkable. IMPRESSION: Right frontal convexity extra-axial enhancing mass, most suggestive of a meningioma. The remainder of the study is unremarkable. Follow-up MRI brain could be performed to confirm stability. Dictated by: Dictated on workstation # [id number]
== END ==
LOC: RAD 14:45
PROVIDERS: ATTEND Psychiatry & Neurology Neurology
DX: G44.029 Chronic cluster headache, not intractable (principal)
CPT/HCPCS: 70553